=== PATIENT | female | born 1965 | race Caucasian/White ===

== ENCOUNTER → 2018-03-24 22:35 | Emergency (ER) | payer MEDICAID ==
[~2018-03-24 22:35] MED LIST: Ibuprofen TAB* 800 MG PO ONE
--- NOTE | 2018-03-24 23:10 | ED ---
Substance Abuse/Use - HPI Summary HPI Summary: This pt is a 53 y/o female presenting to [facility] via EMS s/p heroin overdose. Pt reports she used IV heroin today. She states she does heroin about once a week. EMS states bystanders administered 16 mg Narcan intranasally. Pt currently notes feeling fatigue and anxious. Denies chest pain, SOB, nausea, vomiting. Per EMS, upon arriving to scene the pt was awake and hunched over trying to keep warm. - History Of Current Complaint Stated Complaint: POSS OVERDOSE Hx Obtained From: Patient, EMS Ingestion History: Type/Name Of Drug - Heroin Overdose Characteristics: IV Timing Of Abuse: Intermittent - once every week Aggravating Factor(s): Nothing Alleviating Factor(s): Medication - Narcan Associated Signs And Symptoms: Other: - fatigue and anxious - Allergies/Home Medications Allergies/Adverse Reactions: Allergies Allergy/AdvReac Type Severity Reaction Status Date / Time No Known Allergies Allergy Verified 03/24/18 22:47 Home Medications: Home Medications NK [No Home Medications Reported] 03/24/18 [History Confirmed 03/24/18] PMH/Surg Hx/FS Hx/Imm Hx Endocrine/Hematology History: Denies: Hx Diabetes Cardiovascular History: Denies: Hx Hypertension Psychiatric History: Reports: Hx Substance Abuse - heroin Infectious Disease History: No Infectious Disease History: Denies: Traveled Outside the [place] in Last 30 Days - Family History Known Family History: Negative: Cardiac Disease, Hypertension - Social History Alcohol Use: None Substance Use Type: Reports: Heroin Substance Use Comment - Amount & Last Used: once a week Smoking Status (MU): Never Smoked Tobacco Review of Systems Positive: Fatigue. Negative: Fever Negative: Chest Pain Negative: Shortness Of Breath Negative: Vomiting, Nausea Musculoskeletal: Negative Skin: Negative Positive: Anxious All Other Systems Reviewed And Are Negative: Yes Physical Exam - Summary Physical Exam Summary: VITAL SIGNS: Reviewed. GENERAL: Patient is a well-developed and nourished female who is lying comfortable in the stretcher. Patient is not in any acute respiratory distress. HEAD AND FACE: No signs of trauma. No ecchymosis, hematomas or skull depressions. No sinus tenderness. EYES: PERRLA, EOMI x 2, No injected conjunctiva, no nystagmus. EARS: Hearing grossly intact. Ear canals and tympanic membranes are within normal limits. MOUTH: Oropharynx within normal limits. NECK: Supple, trachea is midline, no adenopathy, no JVD, no carotid bruit, no c- spine tenderness, neck with full ROM. CHEST: Symmetric, no tenderness at palpation LUNGS: Clear to auscultation bilaterally. No wheezing or crackles. CVS: Regular rate and rhythm, S1 and S2 present, no murmurs or gallops appreciated. ABDOMEN: Soft, non-tender. No signs of distention. No rebound no guarding, and no masses palpated. Bowel sounds are normal. EXTREMITIES: FROM in all major joints, no edema, no cyanosis or clubbing. NEURO: Alert and oriented x 3. No acute neurological deficits. Speech is normal and follows commands. SKIN: Dry and warm Triage Information Reviewed: Yes Vital Signs On Initial Exam: Initial Vitals Temp Pulse Resp BP Pulse Ox 97.9 F 88 16 148/83 95 03/24/18 22:48 03/24/18 22:48 03/24/18 22:48 03/24/18 22:48 03/24/18 22:48 Vital Signs Reviewed: Yes Diagnostics - Vital Signs Vital Signs Temp Pulse Resp BP Pulse Ox 03/24/18 22:48 97.9 F 88 16 148/83 95 - Laboratory Lab Statement: Any lab studies that have been ordered have been reviewed, and results considered in the medical decision making process. Course/Dx - Course Assessment/Plan: Pt is a 53 y/o female who presents to the ED via EMS s/p heroin overdose. Pt reports she used IV heroin today. She states she does heroin about once a week. EMS states bystanders administered 16 mg Narcan intranasally. Pt currently notes feeling fatigue and anxious. Denies chest pain , SOB, nausea, vomiting. Pt was observed in the ED and she has been stable in the ED for over one hour. She will be discharged home with follow up from her PCP and resources for drug abuse. Pt is advised to return to the ED for any worsening or new symptoms. - Diagnoses Provider Diagnoses: Heroin abuse Discharge - Sign-Out/Discharge Documenting (check all that apply): Patient Departure - Discharge - Discharge Plan Condition: Stable Disposition: HOME Patient Education Materials: Narcotic Abuse (ED) Referrals: Allyson Fernandez MD [Primary Care Provider] - Additional Instructions: Please follow up with your primary care provider in 1-2 days. RETURN TO EMERGENCY DEPARTMENT FOR ANY NEW OR WORSENING SYMPTOMS. - Attestation Statements Document Initiated by Scribe: Yes Documenting Scribe: La Nena Weir Provider For Whom Scribe is Documenting (Include Credential): Dr. Jamison Cardenas MD Scribe Attestation: La Nena Hahn, scribed for Dr. Jamison Cardenas MD on 03/25/18 at 0005.
[2018-03-25 02:50] VITALS: BP 122/71
== END | disposition home or self-care (01) ==
LOC: ED 22:35
DX: F11.10 Opioid abuse, uncomplicated (principal)
CPT/HCPCS: 99283; A9270-GY

== ENCOUNTER 2018-05-14 15:51 | Inpatient (IN) | payer OTHER ==
[2018-05-14] MEDS ORDERED: Midazolam* 1 MG/ML 10 ML VIAL (10 MG) ONE (15:52)
[2018-05-14] MEDS ORDERED: Succinylcholine* 20 MG/ML 10 ML VIAL ONE (15:52)
[2018-05-14] MEDS ORDERED: Etomidate* 2 MG/ML 20 ML VIAL (40 MG) ONE (15:52)
--- NOTE | 2018-05-14 16:03 | ED ---
Altered Mental Status - HPI Summary HPI Summary: Level 5 caveat: Unable to obtain complete HPI due to unresponsiveness. The pt is a 53 y/o female [facility] [facility] [place]/o unresponsiveness. She arrives from the [facility]. EMS reports that the pt injected herself with what is thought was Suboxone and took caffeine pills for a MOELLER 3 hours ago. EMS administered 4 baby ASA en route to no relief. Her BP was 120/76 en route. - History Of Current Complaint Stated Complaint: UNRESPONSIVE Hx Obtained From: EMS Onset/Duration: Unknown Aggravating Factor(s): Drug Abuse - Allergies/Home Medications Allergies/Adverse Reactions: Allergies Allergy/AdvReac Type Severity Reaction Status Date / Time No Known Allergies Allergy Verified 03/24/18 22:47 PMH/Surg Hx/FS Hx/Imm Hx Previously Healthy: No - Level 5 caveat: Unable to obtain complete Mhx due to unresponsiveness. Endocrine/Hematology History: Denies: Hx Diabetes Cardiovascular History: Reports: Hx Myocardial Infarction - 2 Denies: Hx Hypertension Psychiatric History: Reports: Hx Substance Abuse - heroin - Family History Known Family History: Negative: Cardiac Disease, Hypertension - Social History Occupation: Unemployed Lives: [facility] - [facility] Alcohol Use: None Substance Use Type: Reports: Heroin, Other - Suboxone Substance Use Comment - Amount & Last Used: once a week Smoking Status (MU): Never Smoked Tobacco Review of Systems - ROS Summary Review of Systems Summary: Level 5 caveat: Unable to obtain complete ROS due to unresponsiveness. Constitutional: Other - Positive: Altered mental status Positive: Headache All Other Systems Reviewed And Are Negative: No Physical Exam - Summary Physical Exam Summary: Level 5 caveat: Unable to obtain complete PE due to unresponsiveness. General: Pt pulseless and not breathing upon arrival; ABC alert called Skin: Pale ;warm Head: normal Eyes: Pupils dilated and fixed bilaterally ENT: normal Neck: supple, nontender Respiratory: CTA, breath sounds present Cardiovascular: RRR Abdomen: soft, nontender Bowel: present Musculoskeletal: normal, strength/ROM intact Neurological: sensory/motor intact, A&O x3 Psychological: affect/mood appropriate Triage Information Reviewed: Yes Vital Signs Reviewed: Yes Procedures - Procedure Summary Procedure Summary: Intraosseous Infussion in the L proximal tibia - Intubation Intubation Method: orotracheal Tube Size (cm): 7.5 Intubation Complications: no complications Post Intubation Xray: Yes - Lungs clear Diagnostics - Laboratory Result Diagrams: 05/14/18 16:05 05/14/18 16:44 Lab Statement: Any lab studies that have been ordered have been reviewed, and results considered in the medical decision making process. - Radiology CXR Radiology Interpretation Completed By: Radiologist - IMPRESSION: STATUS POST INTUBATION, CLEAR LUNGS. The ED physician reviewed this radiology report. - EKG 15:54 Cardiac Rate: Tachycardia - 126 bpm Ectopy: PVCs Summary of EKG Findings: Diffuse ST elevations present Altered Mental Statu Course/Dx - Course Course Of Treatment: The patient arrived pulseless and not breathing; Her pupils were dilated and fixed bilaterally. She appeared pale. An ABC Alert was called and CPR started. The pt was in V tach and got defibrillated once with a return to normal sinus rhythm and pulses. Dr. Waldrop (Hospitalist) and Dr. Allen (Pulmonary Film Processing Utility Worker) were present in the room. I performed an intubation with a 7.5 ET tube and placed an intraosseous infusion tube in the L proximal tibia. For medications given the sequence of events, see the code record. - Diagnoses Provider Diagnoses: Cardiac arrest During the Visit The Following Alert/Code Occurred: ABC Alert - At 15:49 - Provider Notifications Discussed Care Of Patient With: Lyssa Allen Time Discussed With Above Provider: 15:49 Instructed by Provider To: MD Will See In ED - Dr. Allen and Dr. Waldrop saw the pt in the ED - Critical Care Time Critical Care Time: 30-74 min Discharge - Sign-Out/Discharge Documenting (check all that apply): Patient Departure - Admit All imaging exams completed and their final reports reviewed: Yes - Discharge Plan Condition: Critical Disposition: ADMITTED TO [facility] - Billing Disposition and Condition Condition: CRITICAL Disposition: Admitted to [facility] - Attestation Statements Document Initiated by Scribe: Yes Documenting Scribe: Ayah Momin Provider For Whom Lo is Documenting (Include Credential): Dr Gray Trent MD Scribe Attestation: Ayah Hahn scribed for Dr Gray Trent MD on 05/14/18 at 1815. Scribe Documentation Reviewed: Yes Provider Attestation: The documentation as recorded by the Ayah leoi accurately reflects the service I personally performed and the decisions made by me, Dr Gray Trent MD
[2018-05-14] MEDS ORDERED: LORazepam INJ* 2 MG/ML 1 ML VIAL ONE ×2 (16:09→16:15)
[2018-05-14] MEDS ORDERED: Morphine INJ* 4 MG/ML 1 ML SYRINGE (NEW SYRINGE VERSION) ONE (16:12)
[2018-05-14 16:32] LABS: Hematocrit 44 % (35-47); Hemoglobin 14.3 g/dl (12.0-16.0); Mean Corpuscular HGB Conc 33 g/dl (31-36); Mean Corpuscular Hemoglobin 33 pg (27-31); Mean Corpuscular Volume 101 fL (80-97); Red Blood Count 4.32 10^6/ul (4.00-5.40); Red Cell Distribution Width 13 % (10.5-15)
[2018-05-14 16:36] LABS: INR 0.88 (0.77-1.02)
[2018-05-14 16:38] LABS: EGFR Non-African American 55.4 (>60)
--- NOTE | 2018-05-14 16:54 | RAD ---
INDICATION: Altered mental status. COMPARISON: Correlation is made with a prior study from September 24, 2002. TECHNIQUE: A portable view of the chest was obtained. FINDINGS: The patient is status post intubation. The endotracheal tube tip is at the level of the clavicular heads. The heart is within normal limits in size. The lungs are clear. No pleural effusion is seen. IMPRESSION: STATUS POST INTUBATION, CLEAR LUNGS.
[2018-05-14 17:05] LABS: ABS Basophils 0 10^3/ul (0-0.2); ABS Eosinophils 0 10^3/ul (0-0.6); ABS Lymphocytes 1.1 10^3/ul (1.0-4.8); ABS Monocytes 0.1 10^3/ul (0-0.8); ABS Neutrophils 8.9 10^3/ul (1.5-7.7); ABS Nucleated RBC 0 10^3/ul; Eosinophil % 0.3 % (0-6); Lymphocyte % 10.7 % (25-47); Mean Platelet Volume 8.3 um3 (7.4-10.4); Nucleated Red Blood Cells % 0.1; Platelet Count 279 10^3/ul (150-450)
[2018-05-14] MEDS ORDERED: Lidocaine 1% INJ* 10 MG/ML 30 ML SDV ONE ×3 (17:27→17:39)
[2018-05-14] MEDS ORDERED: nitroGLYCERIN DRIP* 25,000 MCG/250 ML BTL ONE ×2 (17:27→17:28)
[2018-05-14] MEDS ORDERED: Heparin 2 UNITS/ML IVPREMIX* 3,000 ML IV ONE (17:27)
[2018-05-14] MEDS ORDERED: VERAPAMIL 2.5 MG/ML 2 ML VIAL ** 5 mg/2 ml ONE (17:28)
[2018-05-14] MEDS ORDERED: Heparin(*) 1000 UNIT/ML 10 ML VIAL CATH LAB IV ONE (17:28)
[2018-05-14] MEDS ORDERED: fentaNYL PCA* 20 ML ONE (17:28)
[2018-05-14] MEDS ORDERED: Propofol* 100 ML ONE (17:30)
[2018-05-14] MEDS ORDERED: Norepinephrine 16MCG/ML IVPRE* 4,000 MCG/250 ML BAG IV ONE (17:45)
[2018-05-14 17:46] LABS: EGFR Non-African American 60.8 (>60)
--- NOTE | 2018-05-14 17:58 | RAD ---
INDICATION: Central line placement confirmation. COMPARISON: Comparison is made with a prior chest x-ray study of the same date from approximately one hour earlier. TECHNIQUE: A portable view of the chest was obtained. FINDINGS: The patient is status post intubation. The endotracheal tube tip is at the level of the clavicular heads. There is also a central line entering from the right jugular approach. The catheter tip projects to the right in the midline approximately at the level of the gavino. There is a nasogastric tube which is partially visualized on this film which demonstrates normal course. The heart is within normal limits in size. The lungs are clear. There is a small right apical pneumothorax measuring approximately 2.8 cm from the lung apex. No pleural effusion is seen. The results of this exam were called to the patient's intensive care nurse La Nena. IMPRESSION: 1. SMALL RIGHT APICAL PNEUMOTHORAX. 2. CATHETERS DESCRIBED.
[2018-05-14] MEDS ORDERED: Aspirin 81 mg CHEW TAB* 81 MG TAB.CHEW PO ONE (18:00)
[2018-05-14] MEDS ORDERED: Heparin VIAL(*) 5000 UNITS/ML VIAL (FIVE THOUSAND) SUBCUT ONE (18:00)
[2018-05-14] MEDS ORDERED: Ticagrelor* 90 MG TAB PO ONE (18:06)
[2018-05-14] MEDS ORDERED: Bivalirudin(*) 250 MG VIAL ONE (18:07)
[2018-05-14] MEDS ORDERED: Nitroglycerin TAB 0.4 MG* 0.4 MG TAB SL PRN (18:56)
[2018-05-14] MEDS ORDERED: NS 0.9% 1000 ML* 400 ML IV SCH (19:00)
[2018-05-14] MEDS ORDERED: Atropine SYRINGE* 0.1 MG/ML 10 ML SYRINGE (1 MG) ONE (19:28)
[2018-05-14] MEDS ORDERED: Magnesium Sulfate 2 GM IV* 2 GM/50 ML BAG IVPB ONE (19:32)
--- NOTE | 2018-05-14 20:18 | PN ---
Progress Note - Progress Note Date of Service: 05/14/18 - Central line procedure note Note: Procedure: Rt IJ Central Line Performed by: Lyssa Allen Indication: Hypotension and vascular access Anesthesia: 2% Lidocaine Procedure: Informed consent was obtained. A time-out was completed, verifying correct patient, procedure, site, positioning. Patients right IJ area was prepped and draped in usual sterile fashion. 2% Lidocaine was used to anesthetize the area. A Triple lumen central line was introduced over a wire via the Seldinger technique, then sutured in place. Good blood flow was noted from all ports. The patient tolerated the procedure well. Chest x-ray was ordered to assess for pneumothorax and catheter placement. CXR showed small apical pneumothorax. A pig tail was placed to drain pneumothorax. Complications: None Blood loss: Minimal
[2018-05-14 20:22] LABS: Urine Appearance Clear; Urine Blood 2+ (Negative); Urine Color Yellow; Urine Ketones Trace (Negative); Urine Protein Negative (Negative); Urine Red Blood Cell 3+(>10/hpf) (Absent); Urine Specific Gravity > 1.060 (1.010-1.030); Urine Urobilinogen Negative (Negative); Urine White Blood Cell Absent (Absent)
[2018-05-14] MEDS ORDERED: Atorvastatin* 80 MG TAB FEED TUBE ONE (20:56)
--- NOTE | 2018-05-14 21:26 | PN ---
Progress Note - Progress Note Date of Service: 05/14/18 - Arterial line placement Note: Procedure: Arterial Line Placement attempt in rt and lt radial Performed by: Lyssa Allen Indication: Hemodynamic monitoring Anesthesia: None Procedure: Informed consent was obtained by daughter. A time-out was completed verifying correct patient, procedure, site, positioning. Allens test was performed to ensure adequate perfusion. Patients right wrist was prepped and draped in the usual sterile fashion. Ultrasound guidance was used to aid needle placement. A 20g Arrow arterial line was attempted into the radial artery. Guide wire could not be advanced after 3 attempts. Similar issue in lt wrist. Blood Loss: Minimal Complications: None
[2018-05-14] MEDS: KCL 20 MEQ/100 ML IVPREMIX* 20 MEQ/100 ML BAG IV SCH (22:00)
[2018-05-14] MEDS ORDERED: Magnesium Sulfate 4 GM IV IVPB ONE (22:00)
--- NOTE | 2018-05-14 23:43 | HP ---
HISTORY AND PHYSICAL: DATE OF ADMISSION: 05/14/18 CHIEF COMPLAINT: Chest pain. HISTORY OF PRESENT ILLNESS: 53-year-old female with history of heroin and suboxone abuse, was in ED 03/2018 with possible heroin overdose. She was monitored and d/krishna when stable. The patient arrived from [facility]. As per EMS report, the patient injected herself with Suboxone, took 2 caffeine pills for headache for 3 hours. She was complaining of chest pain. She was given 4 baby aspirins by EMS en route. Her blood pressure was around 120/76. She was found to be unresponsive in the ED. ABC alert was called. She was pulseless and was agonally breathing. Her pupils were dilated and fixed bilaterally at that time. She appeared pale. CPR was started. The patient was in V-tach and was defibrillated with return of normal sinus rhythm and pulses. The patient was very agitated at that time. She has received 4 mg of Ativan and 5 mg of morphine with continued agitation. There was difficulty obtaining IV access secondary to her agitation. IO was placed by Dr Trent. Decision was made to intubate pt for airway protection due ot continued agitation and need for sedatives. She has received 20 of etomidate, total of 10 of Versed to facilitate intubation. The patient continued to have good pulses at that time. EKG on monitor showed normal sinus rhythm. She was started on propofol drip. Her blood pressure continued to be systolics 130 to 140. She was tachycardic to 110 to 120. EKG obtained at 3:54 showed tachycardia with heart rate of 126 beats per minute with PVCs. The patient brought in to the ICU. She was noted to have ST elevations on monitor. She had EKG repeated, which showed evidence of ST-elevation GA. Dr Harden was called. STEMI code was called. Emergent Rt IJ was placed for vascular access. She has continued periods of aggitation requiring multiple boluses of Propofol. She was also initiated on Fentanyl drip. CXR confirmed line placement and OGT placement and showed small apical PTX. Surgery was consulted. The patient subsequently was taken to cardiac circus laborer and had stent placed for inferior wall GA. She was initiated on Levophed drip, which was titrated at one point to 10 mcg and then was slowly titrated off after cath. Code ICE protocol was initiated given witnessed VFib arrest. She also had a right-sided chest tube placed by Dr. Ortiz after returning from cardiac cath. PAST MEDICAL HISTORY: 1. GA x2, stent placement, further details unknown 2. Hypertension. 3. Polysubstance abuse, active heroin abuse. MEDICATIONS: Not available currently. ALLERGIES: No known drug allergies. FAMILY HISTORY: Hypertension. SOCIAL HISTORY: She is unemployed, lives in a custodial, [facility] in [place]. No alcohol abuse. Active heroin and Suboxone usage. She does drugs once a week. No tobacco abuse. REVIEW OF SYSTEMS: Unable to obtain secondary to unresponsiveness. PHYSICAL EXAMINATION GENERAL: The patient sedated, unresponsive on propofol drip. VITAL SIGNS: Currently temperature 96.9, pulse 135 beats per minute, respiratory rate 18 per minute, O2 sat 99% on 50% FiO2, blood pressure 158/115. HEENT: Pupils fixed. LUNGS: Good air entry bilaterally, rhonchi present. CARDIOVASCULAR: S1, S2 present. No murmurs. ABDOMEN: Bowel sounds present, nontender, nondistended. EXTREMITIES: She was moving all extremities prior to sedation. NEURO: Unable to assess as the patient is currently sedated. DIAGNOSTIC STUDIES/LAB DATA: WBC count 10.0, hemoglobin 14.3, hematocrit 44, MCV 101. Sodium 136, potassium 3, chloride 104, bicarb 20, anion gap 12, BUN 20, creatinine 0.96, magnesium 1.4. AST 143. TSH 1.74. ALT 80, alk phos 89. Troponin 0.01. CRP 1.83. Urine tox screen pending. Chest x-ray post IJ placement suggestive of right apical pneumothorax, IJ and NG /OG in place. No acute airspace opacities noted. EKG: ST elevations in inferior leads. ASSESSMENT AND PLAN: 53-year-old female with polysubstance abuse with ventricular fibrillation arrest secondary to acute inferior wall GA. She was stabilized and emergently taken to circus laborer and had stent placement. She was found to have 95% occlusion in RCA, stent was placed. Also noted to have 80% occlusion in mid LAD which will be medically managed. 1. Acute inferior wall STEMI s/p RCA stent 2. V.fib arrest 3. Drug overdose 4. AMS s/p intubation for airway protection 5. Elevated troponins 6.Hypotension requiring pressors 1. Neuro: The patient was agitated prior to intubation. She is currently sedated on propofol drip. Will continue with propofol to RASS score of -2 to - 3. 2. Cardiovascular: Acute inferior wall myocardial infarction, status post right coronary artery stent. The patient is currently hemodynamically stable. She is off Levophed drip currently. 3. Respiratory: The patient is intubated for airway protection. Vent settings are acceptable. She had a small apical pneumothorax after a right IJ. Given the patient on positive pressure, Heimlich catheter was placed by surgery. 4. GI: N.p.o. for now. OG in place. 5. Renal: Urinary catheter placed for monitoring. Hypokalemia and hypomagnesemia repleted. Anion gap metabolic acidosis likely secondary to hypoperfusion. 6. Hematology: No anemia. Platelet count normal. 7. Psychosocial: Family at bedside and were updated. Consents obtained from family. TIME SPENT: Critical care time 60 minutes doing admission plus additional 60 minutes aggregate with multiple visits excluding procedures. [id number]/[facility] #: [id number] MTDD
[2018-05-15] MEDS ORDERED: Ticagrelor* 90 MG TAB PO ONE
[2018-05-15] MEDS: Chlorhexidine MOUTHWASH 0.12%* 15 ML UDC TOPICAL SCH ×7 (00:05→21:07)
[2018-05-15] MEDS: KCL 20 MEQ/100 ML IVPREMIX* 20 MEQ/100 ML BAG IV SCH ×3 (00:20→21:07)
[2018-05-15] MEDS ORDERED: Fentanyl PCA (Continuous Infusion)* 20 ML PCA SCH (01:00)
[2018-05-15] MEDS ORDERED: Norepinephrine 16MCG/ML IVPRE* 4,000 MCG/250 ML BAG IV SCH (01:00)
[2018-05-15] MEDS: Propofol* 1000 MG (10 MG/ML 100 ml) @ Per Protocol (in ICU Pyxis) IV SCH ×5 (01:43→21:47)
--- NOTE | 2018-05-15 03:24 | PRO ---
PROCEDURE REPORT: DATE OF PROCEDURE: 05/14/18 HISTORY: Ms. Desai is a 53-year-old who was brought in emergently and taken to cardiac catheterizat ion lab for resuscitation and cardiac stenting and she also was intubated and had a right internal ju gular catheter placed. I was called by Dr. Allen because of a right pneumothorax. On my arrival, t he patient was returning back from the catheterization laboratory. I reviewed her chest x-ray, which showed an estimated 15% to 20% right pneumothorax. Since she will be on positive pressure ventilati on, I recommend placement of an Heimlich valve catheter. Although she has had anticoagulation, I thi nk this is probably lower risk than risking pushing her into a tension pneumothorax with a positive p ressure ventilation. I did discuss the situation with the patient's sister. She understands the risks and the procedure a nd I went overall this with her and answered all of her questions and [facility] DESCRIPTION OF PROCEDURE: Therefore, with the patient supine in the ICU bed, the right upper anterio r chest was prepped with antiseptic, draped in a sterile fashion. Sterile mask, gown, gloves were ut ilized and the second interspace was anesthetized with local anesthetic; and coming up over the rib, the Skinny needle was used to aspirate air confirming the location and then the Heimlich valve cathet er was placed without difficulty. This was sutured at the skin using a silk suture and a sterile gau ze dressing was placed. Heimlich valve was hooked up. She tolerated this well and followup chest x- ray will be obtained. [id number]/[facility] #: [id number]
[2018-05-15 05:22] LABS: ABS Basophils 0 10^3/ul (0-0.2); ABS Eosinophils 0.1 10^3/ul (0-0.6); ABS Lymphocytes 1.7 10^3/ul (1.0-4.8); ABS Monocytes 0.3 10^3/ul (0-0.8); ABS Neutrophils 6.9 10^3/ul (1.5-7.7); ABS Nucleated RBC 0 10^3/ul; Eosinophil % 1.4 % (0-6); Hematocrit 33 % (35-47); Hemoglobin 11.4 g/dl (12.0-16.0); Lymphocyte % 18.5 % (25-47); Mean Corpuscular HGB Conc 34 g/dl (31-36); Mean Corpuscular Hemoglobin 34 pg (27-31); Mean Corpuscular Volume 98 fL (80-97); Mean Platelet Volume 7.9 um3 (7.4-10.4); Nucleated Red Blood Cells % 0; Platelet Count 181 10^3/ul (150-450); Red Blood Count 3.39 10^6/ul (4.00-5.40); Red Cell Distribution Width 13 % (10.5-15); White Blood Count 9.1 10^3/ul (3.5-10.8)
[2018-05-15 05:40] LABS: EGFR Non-African American 95.3 (>60)
--- NOTE | 2018-05-15 06:59 | PN ---
Progress Note - Progress Note Date of Service: 05/15/18 Note: S/P placement Heimlich valve, right Sedated on vent No air leak via tube this AM CXR post procedure--lung re-expanded Cont chest catheter to Heimlich valve until off pos pressure ventilation
--- NOTE | 2018-05-15 07:22 | RAD ---
INDICATION: Right-sided pneumothorax. COMPARISON: Comparison is made with a prior chest x-ray study from approximately 3 hours earlier. TECHNIQUE: A portable view of the chest was obtained. FINDINGS: The patient is status post intubation. There is an endotracheal tube. The catheter tip is at the level of the clavicular heads. There is a nasogastric tube which demonstrates normal course. The distal portion projects in the left upper quadrant. There is a central venous catheter on the right side. There is a Heimlich-type chest tube. The catheter tip projects near the right lung apex. There is a small right apical pneumothorax measuring approximately 1 cm from the lung apex which has decreased in size. The lungs are clear. No pleural effusion is seen. IMPRESSION: STATUS POST RIGHT CHEST TUBE PLACEMENT. THERE IS A SMALL RIGHT APICAL PNEUMOTHORAX WHICH HAS DECREASED IN SIZE FROM THE PRIOR STUDY. R1F
--- NOTE | 2018-05-15 08:32 | RAD ---
INDICATION: Lines and tubes. COMPARISON: Comparison is made with a prior study from May 14, 2018. TECHNIQUE: A portable view of the chest was obtained. The exam is slightly limited. FINDINGS: Note is again made of endotracheal, nasogastric and central venous catheters. The heart is within normal limits in size. There is a Heimlich-type chest tube present. The catheter tip is at the right lung apex. There is a small right apical pneumothorax which appears unchanged. The lungs are clear. No pleural effusion is seen. IMPRESSION: SMALL RIGHT APICAL PNEUMOTHORAX, UNCHANGED.
[2018-05-15] MEDS: Ticagrelor* 90 MG TAB PO SCH ×2 (08:34→21:07)
[2018-05-15] MEDS: Pantoprazole IV* 40 MG IV SCH (08:34)
[2018-05-15] MEDS: Aspirin 81 mg CHEW TAB* 81 MG TAB.CHEW PO SCH (08:34)
--- NOTE | 2018-05-15 10:31 | PN ---
Date of Service: 05/15/18 - [facility] note Critical Care Services: Pt seen and examined at bedside. Overnight events: Remained off Levophed. Had short runs of V.tach. Had idioventricular rhythm. Troponins continued to peak. Sedated on propofol, becomes agitated when propofol drip is lowered. UO is adequate o/n, started to drop this am. IVF were stopped. Heimlich valve in place. Target body temp at 36 Vitals, labs, imaging studies were reviewed Vital Signs: Temp Pulse Resp BP SpO2 FiO2 96.6 F 73 14 103/68 100 30 05/15/18 10:01 05/15/18 10:01 05/15/18 10:00 05/15/18 10:00 05/15/18 10:01 05/15 08:00 Physical Exam: Gen: Pt in NAD, sedated HEENT: PERRLA, no JVD, ETT, OGT in place Lungs: Decreased air entry at bases, no wheeze, no crackles Cardiac: S1, S2+, regular Abdomen: Soft, BS+ Extremities: withdraws to painful stimuli Neuro: Sedated, unable to perform complete neuro exam Skin: Multiple needle track ahn Fluid Balance (Past 24 Hours): I= 0 O= 123 Net -123 Intake & Output 05/13/18 05/14/18 05/15/18 05/16/18 06:59 06:59 06:59 06:59 Intake Total 7436 0 Output Total 1200 123 Balance 6236 -123 Weight 131 lb 2.801 oz Intake: IV Fluids 6697 NS (0.9%) 6697 IVPB 318 Magnesium 100 Potassium Chloride 218 Medicated IV 421 CC - Norepinephrine/ 145 Levophed CC - Propofol/Diprivan 276 Oral 0 0 Output: NG Tube Drainage Amount 800 Rodriguez 400 123 Labs: Laboratory Results - last 24 hr 05/14/18 05/14/18 05/14/18 16:05 16:05 16:05 WBC 10.0 RBC 4.32 Hgb 14.3 Hct 44 MCV 101 H MCH 33 H MCHC 33 RDW 13 Plt Count 279 MPV 8.3 Neut % (Auto) 88.2 H Lymph % (Auto) 10.7 L Loup % (Auto) 0.5 Eos % (Auto) 0.3 Baso % (Auto) 0.3 Absolute Neuts (auto) 8.9 H Absolute Lymphs (auto) 1.1 Absolute Monos (auto) 0.1 Absolute Eos (auto) 0 Absolute Basos (auto) 0 Absolute Nucleated RBC 0 Nucleated RBC % 0.1 INR (Anticoag Therapy) 0.88 APTT 30.0 D-Dimer, Quantitative 352 H Carbon Monoxide Screen Sodium 133 L Potassium TNP Chloride 103 Carbon Dioxide 17 L Anion Gap 13 H BUN 20 Creatinine 1.04 H Est GFR ( Amer) 67.1 Est GFR (Non-Af Amer) 55.4 BUN/Creatinine Ratio 19.2 Glucose 157 H Lactic Acid Calcium 9.0 Magnesium TNP Total Bilirubin 0.50 AST TNP ALT 80 H Alkaline Phosphatase 89 Ammonia Total Creatine Kinase 78 CK-MB (CK-2) 2.7 Troponin I 0.01 C-Reactive Protein 1.83 B-Natriuretic Peptide Total Protein 8.0 Albumin 3.7 Globulin 4.3 H Albumin/Globulin Ratio 0.9 L Triglycerides Cholesterol LDL Cholesterol HDL Cholesterol Lipase 47 TSH Urine Color Urine Appearance Urine pH Ur Specific [place] Urine Protein Urine Ketones Urine Blood Urine Nitrate Urine Bilirubin Urine Urobilinogen Ur Leukocyte Esterase Urine WBC (Auto) Urine RBC (Auto) Urine Bacteria Urine Glucose Salicylates Urine Opiates Screen Acetaminophen Ur Barbiturates Screen Ur Phencyclidine Scrn Ur Amphetamines Screen U Benzodiazepines Scrn Urine Cocaine Screen U Cannabinoids Screen Serum Alcohol 05/14/18 05/14/18 05/14/18 16:34 16:44 18:15 WBC RBC Hgb Hct MCV MCH MCHC RDW Plt Count MPV Neut % (Auto) Lymph % (Auto) Loup % (Auto) Eos % (Auto) Baso % (Auto) Absolute Neuts (auto) Absolute Lymphs (auto) Absolute Monos (auto) Absolute Eos (auto) Absolute Basos (auto) Absolute Nucleated RBC Nucleated RBC % INR (Anticoag Therapy) APTT D-Dimer, Quantitative Carbon Monoxide Screen Sodium 136 Potassium TNP 3.0 L Chloride 104 Carbon Dioxide 20 L Anion Gap 12 H BUN 20 Creatinine 0.96 H Est GFR ( Amer) 73.6 Est GFR (Non-Af Amer) 60.8 BUN/Creatinine Ratio 20.8 H Glucose 119 H Lactic Acid Calcium 8.7 Magnesium 1.4 L Total Bilirubin AST 143 H ALT Alkaline Phosphatase Ammonia Total Creatine Kinase CK-MB (CK-2) Troponin I C-Reactive Protein B-Natriuretic Peptide Total Protein Albumin Globulin Albumin/Globulin Ratio Triglycerides Cholesterol LDL Cholesterol HDL Cholesterol Lipase TSH 1.74 Urine Color Urine Appearance Urine pH Ur Specific [place] Urine Protein Urine Ketones Urine Blood Urine Nitrate Urine Bilirubin Urine Urobilinogen Ur Leukocyte Esterase Urine WBC (Auto) Urine RBC (Auto) Urine Bacteria Urine Glucose Salicylates < 2.50 Urine Opiates Screen Acetaminophen < 15 Ur Barbiturates Screen Ur Phencyclidine Scrn Ur Amphetamines Screen U Benzodiazepines Scrn Urine Cocaine Screen U Cannabinoids Screen Serum Alcohol < 10 05/14/18 05/14/18 05/14/18 19:54 19:54 23:30 WBC RBC Hgb Hct MCV MCH MCHC RDW Plt Count MPV Neut % (Auto) Lymph % (Auto) Loup % (Auto) Eos % (Auto) Baso % (Auto) Absolute Neuts (auto) Absolute Lymphs (auto) Absolute Monos (auto) Absolute Eos (auto) Absolute Basos (auto) Absolute Nucleated RBC Nucleated RBC % INR (Anticoag Therapy) APTT D-Dimer, Quantitative Carbon Monoxide Screen Sodium Potassium Chloride Carbon Dioxide Anion Gap BUN Creatinine Est GFR ( Amer) Est GFR (Non-Af Amer) BUN/Creatinine Ratio Glucose Lactic Acid Calcium Magnesium Total Bilirubin AST ALT Alkaline Phosphatase Ammonia 47 Total Creatine Kinase CK-MB (CK-2) Troponin I C-Reactive Protein B-Natriuretic Peptide 131 H Total Protein Albumin Globulin Albumin/Globulin Ratio Triglycerides Cholesterol LDL Cholesterol HDL Cholesterol Lipase TSH Urine Color Yellow Urine Appearance Clear Urine pH 5.0 Ur Specific [place] > 1.060 H Urine Protein Negative Urine Ketones Trace A Urine Blood 2+ A Urine Nitrate Negative Urine Bilirubin Negative Urine Urobilinogen Negative Ur Leukocyte Esterase Negative Urine WBC (Auto) Absent Urine RBC (Auto) 3+(>10/hpf) A Urine Bacteria Absent Urine Glucose Negative Salicylates Urine Opiates Screen Presumptive positive A Acetaminophen Ur Barbiturates Screen None detected Ur Phencyclidine Scrn None detected Ur Amphetamines Screen Presumptive positive A U Benzodiazepines Scrn Presumptive positive A Urine Cocaine Screen Presumptive positive A U Cannabinoids Screen None detected Serum Alcohol 05/14/18 05/14/18 05/14/18 23:30 23:30 23:30 WBC RBC Hgb Hct MCV MCH MCHC RDW Plt Count MPV Neut % (Auto) Lymph % (Auto) Loup % (Auto) Eos % (Auto) Baso % (Auto) Absolute Neuts (auto) Absolute Lymphs (auto) Absolute Monos (auto) Absolute Eos (auto) Absolute Basos (auto) Absolute Nucleated RBC Nucleated RBC % INR (Anticoag Therapy) APTT D-Dimer, Quantitative Carbon Monoxide Screen 4.0 Sodium Potassium Chloride Carbon Dioxide Anion Gap BUN Creatinine Est GFR ( Amer) Est GFR (Non-Af Amer) BUN/Creatinine Ratio Glucose Lactic Acid 1.1 Calcium Magnesium Total Bilirubin AST ALT Alkaline Phosphatase Ammonia Total Creatine Kinase 1483 H CK-MB (CK-2) 272.1 H Troponin I 16.79 H* C-Reactive Protein B-Natriuretic Peptide Total Protein Albumin Globulin Albumin/Globulin Ratio Triglycerides Cholesterol LDL Cholesterol HDL Cholesterol Lipase TSH Urine Color Urine Appearance Urine pH Ur Specific [place] Urine Protein Urine Ketones Urine Blood Urine Nitrate Urine Bilirubin Urine Urobilinogen Ur Leukocyte Esterase Urine WBC (Auto) Urine RBC (Auto) Urine Bacteria Urine Glucose Salicylates Urine Opiates Screen Acetaminophen Ur Barbiturates Screen Ur Phencyclidine Scrn Ur Amphetamines Screen U Benzodiazepines Scrn Urine Cocaine Screen U Cannabinoids Screen Serum Alcohol 05/15/18 05/15/18 05:00 05:00 WBC 9.1 RBC 3.39 L Hgb 11.4 L Hct 33 L MCV 98 H MCH 34 H MCHC 34 RDW 13 Plt Count 181 MPV 7.9 Neut % (Auto) 76.2 Lymph % (Auto) 18.5 L Loup % (Auto) 3.4 Eos % (Auto) 1.4 Baso % (Auto) 0.5 Absolute Neuts (auto) 6.9 Absolute Lymphs (auto) 1.7 Absolute Monos (auto) 0.3 Absolute Eos (auto) 0.1 Absolute Basos (auto) 0 Absolute Nucleated RBC 0 Nucleated RBC % 0 INR (Anticoag Therapy) APTT D-Dimer, Quantitative Carbon Monoxide Screen Sodium 134 L Potassium 4.1 Chloride 106 Carbon Dioxide 26 Anion Gap 2 BUN 18 Creatinine 0.65 Est GFR ( Amer) 115.4 Est GFR (Non-Af Amer) 95.3 BUN/Creatinine Ratio 27.7 H Glucose 102 H Lactic Acid Calcium 8.0 L Magnesium 2.7 Total Bilirubin 0.40 AST 207 H ALT 104 H Alkaline Phosphatase 62 Ammonia Total Creatine Kinase 1659 H CK-MB (CK-2) > 298.0 H Troponin I 23.43 H* C-Reactive Protein B-Natriuretic Peptide Total Protein 6.0 L Albumin 2.9 L Globulin 3.1 Albumin/Globulin Ratio 0.9 L Triglycerides 131 Cholesterol 127 LDL Cholesterol 49 HDL Cholesterol 51.4 Lipase TSH Urine Color Urine Appearance Urine pH Ur Specific [place] Urine Protein Urine Ketones Urine Blood Urine Nitrate Urine Bilirubin Urine Urobilinogen Ur Leukocyte Esterase Urine WBC (Auto) Urine RBC (Auto) Urine Bacteria Urine Glucose Salicylates Urine Opiates Screen Acetaminophen Ur Barbiturates Screen Ur Phencyclidine Scrn Ur Amphetamines Screen U Benzodiazepines Scrn Urine Cocaine Screen U Cannabinoids Screen Serum Alcohol Studies: CXR 05/15/18 was personally reviewed- Rt apical pneumothorax, Rt chest tube in place, OGT, ETT, Rt IJ in place Nutrition: NPO Impression: 1. Acute STEMI 2. V.fib arrest, code ice protocol 2. Cocaine abuse 3. H/o heroin abuse 4. s/p cardiac cath 5. 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 S/p intubation for airway protection 7. Hypotension sec to Propofol and inferior wall TN, required Levophed, currently off pressors 8. Electrolyte abnormalities being repleted 9. Elevated troponins 10. Hypoalbuminemia 11. Elevated liver enzymes- hypotension 12. Macrocytic anemia Plan: 1. Neuro: Will continue with Propofol drip to RASS score -2 to-3. Patient was communicative prior to v.fib arrest. Donot suspect neurological issues. Pupils are reactive. Gets agitated when sedation is lowered. Keep head of bed elevated at 30 degrees. 2. CVS: Acute inf wall TN s/p V.Fib arrest. STEMI was called. Pt had cardiac cath with stent in RCA. Brief episodes of V.tach, no bradycardia, in normal sinus rhythm. Off Levophed. F/u troponins. Code ice protocol started for v.fib arrest. Will start rewarming at 9 pm tonight. 3. Resp: Intubated for airway protection. Peak pressures and plateau pressures are normal. On 30% FiO2, sats around 100%. Had iatrogenic pneumothorax after Rt IJ placement, s/p chest tube placement, with air leak. Will need until off positive pressure. CXR from this morning was reviewed. Vent bundle ordered. 4. GI: NPO for now.PPI px ordered 5. Renal: UO slowed down slightly this am. Will restart IVF at 100cc/hr. Electrolyte abnormalities have been corrected 6.ID: No concern for infection. No need for abx 7. Haem: Macrocytic anemia,will check folate and iron. No active bleeding. 8. Musculoskeletal: Frequent turning and positioning to prevent pressure ulcers 9. Psychosocial: Pt with h/o prior CAD, TN and stent placement. Pt needs to be compliant with medications to prevent stent thrombosis upon discharge. She is currently in drug rehab center. Pts daughter and sister were at bedside yesterday with multiple other family members. They were updated on patients condition. Daughter to arrive this afternoon. Will update when at bedside. Will need to have social security specialist on case before discharge for d/c planning and to assure medication compliance Rodriguez catheter for hemodynamic monitoring and to prevent pressure ulcers given bedridden status IV access: Rt IJ. A-line attempt was unsuccessful, not indicated anymore. Groin site looks good Critical Care Time: 55 min
--- NOTE | 2018-05-15 11:15 | CONS ---
CC: Dr. Allyson Fernandez; Dr. Allen CARDIOLOGY CONSULT: DATE OF CONSULT: 05/14/18 INDICATION FOR CONSULT: The patient presents to the hospital with out of hospital cardiac arrest, no w with EKG demonstration of large inferoposterior wall myocardial infarction. HISTORY OF PRESENT ILLNESS: The patient is a 53-year-old female, whose history is obtained totally b y the medical records and by speaking with Dr. Allen and also some family members. The patient heather carney has a history of multiple stents placed in the past due to her coronary arteries. It should b e noted we have no available information at this time. Initially, the family felt she had some of st ents performed here looking at her records, that did not occur, they were all performed in some [facility]. The patient apparently, according to the patient's daughter, was not feeling well during the course o f the day and apparently was living at the [facility] in [place]. Apparently, s he had told them she had injected herself with Suboxone, took 2 caffeine pills for headache. She heather carney was complaining about chest discomfort. She was given 4 baby aspirins in route. Her blood pr essure initially was 120/76. When she presented to the ER, she was found to be unresponsive and an A BC alert was called. She was pulseless with agonal breathing. She appeared pale. CPR was started. She was noted to have V-tach and was defibrillated to normal sinus rhythm and developed pulses. At that point time, she was agitated, but was uncertain whether or not she was purposeful according to Arlene Allen. She was given medication for agitation and was intubated. EKG reportedly at 3:54 showed tachycardia with a heart rate of 126 with PVCs. I do not have that EKG immediately available. The p juan antonio was brought in to the ICU and a repeat EKG was performed that revealed ST segment elevation an d reciprocal changes suggesting an acute inferoposterior wall myocardial infarction. I was then call ed by Dr. Allen. I reviewed the EKG and asked her to immediately call a STEMI alert, which she did. In the meantime, she worked on placing an IJ line in. On arrival, the patient was intubated, sedat ed. Vital signs revealed a blood pressure in the 120 range with a tachycardia as much as 130. Levop hed was placed on her for hypotension prior to my arrival. After reviewing with the family the risks and benefits and they understood it, the decision was made to proceed with emergent cardiac catheter ization in an attempt to open what is presumed to be a totally occluded right coronary artery or left dominant circumflex. As mentioned earlier, we have no reports of prior cardiac catheterizations. PAST MEDICAL HISTORY: Includes apparently myocardial infarction x2 in the past, history of hypertens ion. MEDICATIONS: At home, currently not available. According to the family, they do not believe the pat ient was taking any medications at this time. ALLERGIES: There were no known drug allergies. FAMILY HISTORY: Included hypertension. SOCIAL HISTORY: She is unemployed, lives in a [place] [facility], [facility] in [place], reported prior history of drug usage. She does not smoke and apparently does not use alcohol per Dr. Allen' s evaluation. REVIEW OF SYSTEMS: Unobtainable. PHYSICAL EXAM: When I see, reveals an intubated patient, fully sedated. Vital signs revealed blood pressure 120/70 with a pulse of 130. Neck was supple. It is impossible to accurately hear for any b ruits because of ventilation. Heart revealed distant heart sounds, tachycardic rate. I cannot appre ciate significant systolic or diastolic murmur. Breath sounds are mildly coarse in nature both sides in the lower lungs. I cannot appreciate definitive rales. Extremities are without clubbing, cyanos is, or pascual pitting edema. Femoral pulses present bilaterally. There is a scar located in the groin area. Distal pulses are intact. Neuro: The is patient fully sedated. DIAGNOSTIC STUDIES/LAB DATA: Laboratory results available at the time of the cardiac catheterization revealed hemoglobin and hematocrit 14.3 and 44 with a platelet count of 279,000. A sodium 133, pota ssium is still pending, chloride 103, bicarb 17, BUN and creatinine of 20 and 1.0. SGOT 80, total CP K 78, MB 27, troponin 0.01. Total protein 8.0, albumin 3.7, TSH 1.74. Electrocardiogram available to me at the time dated 05/14/18 time 1649 revealed sinus tachycardia, he art rate 129, normal GA, QRS, and QT interval. There was severe ST segment elevation in II, III, aVF with severe segment depression in V1 through 4 and I and aVL suggesting acute inferoposterior wall m yocardial infarction. OVERALL ASSESSMENT: Maira presents now with cardiac arrest with ventricular tachycardia, successfull y resuscitated, although her mental status is unclear at this time. At this point in time, we will p roceed to emergent cardiac catheterization with an attempt toward revascularization. The patient is now being given 4000 units of heparin. She apparently received aspirin in route to the emergency jacek m. We will give Brilinta down the NG tube in the cardiovascular laboratory. Formal management will be made pending results of the cardiac catheterization. [id number]/[facility] #: [id number]
--- NOTE | 2018-05-15 11:40 | CATH ---
CC: Dr. Allyson Fernandez CARDIAC CATHETERIZATION AND INTERVENTIONAL REPORT: DATE OF PROCEDURE: 05/14/18 INDICATION FOR THE PROCEDURE: The patient with EKG suggesting acute ST segment elevation, inferoposterior myocardial infarction. PROCEDURE: Coronary arteriography, left heart catheterization, left ventriculography, balloon angioplasty, and placement of a 2.75 x 16 mm long Synergy drug-eluting stent post dilated to 2.75, 2.8 mm. The patient was examined in the intensive care unit. The risks and benefits were explained to the family members who understood and wished to proceed. APPROACH: Right femoral artery. PRECARDIAC CATHETERIZATION LABORATORY RESULTS: Hemoglobin and hematocrit of 14.3 and 44 with a platelet count of 279,000. BUN and creatinine of 20 and 1. Sodium 133, potassium not available, chloride 103, bicarb 17. EQUIPMENT UTILIZED: 1. Right femoral artery sheath 6.5-[place] Merit Prelude sheath. 2. Diagnostic coronary catheters FL4 curved left coronary catheter and a 6- [place] ART4 curved guide catheter. 3. Guide catheter for interventional procedure: The 6-[place] ART 4 curve right coronary guide catheter. 4. The diagnostic guidewire was a regular length 0.013 guidewire. 5. Interventional guidewire was a All Star 190 length guidewire. 6. Initial balloon dilation 2.5 x 12 mm, 2.75 x 15 mm NC Emerge. 7. Stent utilized was 2.75 x 20 mm. 8. Post stent deployment balloon utilized was 2.75 x 15 mm at high pressure. 9. Left heart catheterization - catheter was a 5.5 angle pigtail catheter. 10. Cooling catheter at the request of Dr. Allen for hypothermic protocol. MEDICATIONS GIVEN: 1. The patient was already on propofol and Levophed drip, 1 mg of atropine was given for initial bradycardia. 2. 180 mg of Brilinta via the NG tube. 3. Angiomax bolus and Angiomax drip was started after the patient had an ACT found to be subtherapeutic. DESCRIPTION OF PROCEDURE: The patient was brought to the cardiovascular laboratory where a formal time-out was performed. The patient was prepped and draped in a sterile fashion. The right groin area was anesthetized with 1% lidocaine. The right femoral artery was cannulated and a 6.5-South African sheath was placed. Coronary arteriography was performed followed by intervention utilizing the ART4 6-[place] African guide catheter. Prior to intervention, ACT was checked, found to be therapeutic, and the patient received a bolus of Angiomax and Angiomax drip started and Brilinta was given down the NG tube. After the stent placement and the artery assessed, left heart catheterization was performed using the 5-[place] pigtail catheter advanced to the ascending aorta. Central aortic pressure was caught and the catheter was then passed across the aortic valve into the left ventricle where the left ventricular pressure was recorded. Left ventriculography was performed utilizing a total of 24 cc of Omnipaque dye at a rate of 12 cc per second and the catheter was then pulled back across the aortic valve to recheck gradient. At the end of the case, the catheter was sutured in place. Of note, Dr. Allen had asked that we placed a cooling catheter in the right femoral vein. The right femoral vein was cannulated at the beginning of the case and this sheath was exchanged for the cooling catheter, which was then sutured in place to be utilized by Dr. Allen for cooling. RESULTS: HEMODYNAMIC DATA: Left heart catheterization - revealed central aortic pressure of 119/70 with a mean of 92. Left ventricular pressure 170 over left ventricular end diastolic pressure of 16. LEFT VENTRICULOGRAPHY: performed in the FARIA projection revealed moderate-to- severe inferior wall hypokinesis with preservation of the anterior and apical region. Moderately reduced ejection fraction of approximately 35% to 40%. CORONARY ARTERIOGRAPHY: A. Left coronary artery: 1. Left main - long in nature with a minimal 10% distal lesion noted. 2. Left anterior descending artery - of note, there is a presence of a stent placed within the proximal portion of the left anterior descending artery with moderate in-stent restenosis noted. Of note, just past the end of the stent is bifurcation of the artery into continuation of the LAD and a diagonal branch. There is a complex narrowing seen including the bifurcation with a degree of luminal reduction noted to be approximately 70% to 75% to the diagonal branch and 75% to the LAD. Calcium is seen around that area as well. There is no other significant lesion seen past that point. The LAD supplies to the apical region and the diagonal to the anterolateral apical region. 3. Circumflex artery - a nondominant vessel supplying a high first obtuse marginal branch followed by 4 more obtuse marginal branches. The second one had a proximal narrowing of 65% to 70%. Continuation of the circumflex had mild 30% narrowing in its distal portion prior to the last 2 obtuse marginal branch. B. Right coronary artery - a dominant vessel supplying multiple acute marginal branches including the PDA and 1 posterior left ventricular branch. There was a critical 95% proximal lesion noted with some calcium and thrombus present. The rest of the vessel showed a prior stent just past it which had mild in-stent restenosis of approximately 20% to 25%. INTERVENTIONA INTO PROXIMAL TO MID RIGHT COROANRY ARTERY: Successful reduction of critical 95% lesion in the mid right coronary artery with balloon angioplasty and placement of 2.75 x 20 mm long Synergy drug- eluting stent post dilated to 2.75, 2.8 with PARVIZ 3 flow, no dissection seen and a 10% to 15% residual stenosis seen in the RELL projection and 0% stenosis seen in the FARIA projection. 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 At this point in time, aggressive medical management will be pursued with dual-antiplatelet therapy, high- dose statin therapy. Further medical management will be determined after results of further blood tests are performed. Hypothermic protocol per Dr. Allen and further management will be made during the course of this hospitalization following the patient's status along clinically. [id number]/[facility] #: [id number] [facility]
[2018-05-15] MEDS: NS 0.9% 1000 ML* 1,000 ML IV SCH ×2 (12:23→22:26)
--- NOTE | 2018-05-15 15:26 | ECHO ---
Patient: MIKE SELF [facility] Rec#: [id number] : 1965 Date: 05/15/2018 Age: 53y Height: 168 cm / 66.1 in Weight: 60 kg / 132.2 lbs Sex: F BSA: 1.68 Room#: ICU 1 Admit Date#: 05/14/2018 Type: Inpatient Referring: Yrn Thorpe MD Reading: Scott Michael MD Logistics Operations Manager: Princess Fernández RN RDCS Transthoracic Echocardiogram Indication: [place], S/P PCI BP: 105/70 HR: 74 Rhythm: NSR Findings History: CAD with MIs, HN, polysubstance abuse, active heroin abuse Technical Comments: The study is technically limited due to patient being intubated and on a ventilator. Left Ventricle: The left ventricular chamber size is decreased. There is no left ventricular hypertrophy. There is a focal wall motion abnormality present. There is mild to moderately decreased left ventricular systolic function. The estimated ejection fraction is 40-45%. Abnormal left ventricular diastolic filling is observed, consistent with impaired relaxation. Left Atrium: The left atrial chamber size is normal. Right Ventricle: The right ventricular cavity size is normal. The right ventricular global systolic function is normal. Right Atrium: The right atrial cavity size is normal. Aortic Valve: The aortic valve structure is not well visualized. The aortic valve is trileaflet. The aortic valve leaflets are mildly thickened. There is no evidence of aortic regurgitation. There is no evidence of aortic stenosis. Mitral Valve: The mitral valve leaflets are mildly thickened. There is mild mitral regurgitation. There is no evidence of mitral stenosis. Tricuspid Valve: The tricuspid valve leaflets are normal. There is trace to mild tricuspid regurgitation. Unable to estimate the right ventricular systolic pressure. There is no tricuspid stenosis. Pulmonic Valve: The pulmonic valve structure is not well visualized. Pericardium: There is no significant pericardial effusion. Aorta: The aorta is not well visualized. The ascending aorta is not well visualized. There is no dilatation of the aortic arch. There is no dilation of the aortic root. Pulmonary Artery: The main pulmonary artery is not well visualized. Venous: Unable to accurately comment on the size collapsibility of the IVC as the patient in known to be on mechanical ventilation. Summary: There was not any prior study for comparison. Conclusions The left ventricular chamber size is decreased. There is a focal wall motion abnormality present. There is mild to moderately decreased left ventricular systolic function. The estimated ejection fraction is 40-45%. WMA mid to distal inferior wall seen best in A2C view. Abnormal left ventricular diastolic filling is observed, consistent with impaired relaxation. There is mild mitral regurgitation. There is trace to mild tricuspid regurgitation. Measurements Name Value Normal Range RVIDd (AP) 2D 2.7 cm (0.9 - 2.6) RVDdMajor (2D) 3 cm (2.2 - 4.4) RAd ISD 4CH 3.6 cm (3.4 - 4.9) RA (A4C)W 2.8 cm (2.9 - 4.6) IVSd (2D) 1 cm (0.6 - 1) LVPWd (2D) 0.9 cm (0.6 - 1) LVIDd (2D) 3.5 cm (3.6 - 5.4) LVIDs (2D) 3.2 cm - LV FS (2D) 9 % (25 - 45) Aortic Annulus 1.8 cm (1.4 - 2.6) Ao root diameter (2D) 2.8 cm (2.1 - 3.5) LA dimension (AP) 2D 3 cm (2.3 - 3.8) LAd ISD 4CH 4.4 cm (2.9 - 5.3) LA ISD 4CH W 3.7 cm (2.5 - 4.5) Name Value Normal Range LA ESV BP (A/L) index 20.1 ml/m2 - Name Value Normal Range MV E-wave Vmax 0.66 m/sec - MV deceleration time 232 msec - MV A-wave Vmax 0.88 m/sec - MV E:A ratio 0.7 ratio - LV septal e' Vmax 0.06 m/sec - LV lateral e' Vmax 0.08 m/sec - LV E:e' septal ratio 11 ratio - LV E:e' lateral ratio 8.3 ratio - Name Value Normal Range AV Vmax 1.2 m/sec - AV VTI 26.3 cm - AV peak gradient 5 mmHg - AV mean gradient 3 mmHg - LVOT Vmax 0.76 m/sec - LVOT VTI 14.3 cm - LVOT peak gradient 2 mmHg - LVOT mean gradient 1 mmHg - Name Value Normal Range IVC diameter 2.1 cm -
[2018-05-15] MEDS: Atorvastatin* 80 MG TAB PO SCH (17:05)
[2018-05-15 17:23] LABS: EGFR Non-African American 118.1 (>60)
[2018-05-15] MEDS ORDERED: Levofloxacin 500 MG IVPREMIX(* 500 MG/100 ML BAG IVPB SCH (23:00)
[2018-05-16] MEDS: Chlorhexidine MOUTHWASH 0.12%* 15 ML UDC TOPICAL SCH ×4 (01:14→13:46)
[2018-05-16] MEDS: Propofol* 1000 MG (10 MG/ML 100 ml) @ Per Protocol (in ICU Pyxis) IV SCH ×3 (01:15→09:00)
[2018-05-16 05:54] LABS: ABS Basophils 0 10^3/ul (0-0.2); ABS Eosinophils 0.2 10^3/ul (0-0.6); ABS Monocytes 0.5 10^3/ul (0-0.8); ABS Neutrophils 6.2 10^3/ul (1.5-7.7); ABS Nucleated RBC 0 10^3/ul; Eosinophil % 2.6 % (0-6); Hematocrit 33 % (35-47); Hemoglobin 10.8 g/dl (12.0-16.0); Lymphocyte % 12.7 % (25-47); Mean Corpuscular HGB Conc 33 g/dl (31-36); Mean Corpuscular Hemoglobin 33 pg (27-31); Mean Corpuscular Volume 99 fL (80-97); Mean Platelet Volume 8.2 um3 (7.4-10.4); Nucleated Red Blood Cells % 0; Platelet Count 151 10^3/ul (150-450); Red Blood Count 3.29 10^6/ul (4.00-5.40); Red Cell Distribution Width 14 % (10.5-15); White Blood Count 7.9 10^3/ul (3.5-10.8)
[2018-05-16 06:15] LABS: EGFR Non-African American 142.1 (>60)
[2018-05-16] MEDS ORDERED: Magnesium Sulfate 2 GM IV* 2 GM/50 ML BAG IVPB ONE (07:25)
[2018-05-16] MEDS: NS 0.9% 1000 ML* 1,000 ML IV SCH (08:10)
[2018-05-16] MEDS: Ticagrelor* 90 MG TAB PO SCH ×2 (08:37→22:11)
[2018-05-16] MEDS: Pantoprazole IV* 40 MG IV SCH (08:38)
[2018-05-16] MEDS: Aspirin 81 mg CHEW TAB* 81 MG TAB.CHEW PO SCH (09:00)
[2018-05-16] MEDS ORDERED: NS 0.9% 1000 ML* 1,000 ML IV SCH (09:48)
[2018-05-16] MEDS ORDERED: Famotidine TAB* 20 MG PO SCH (10:00)
--- NOTE | 2018-05-16 10:03 | PN ---
Progress Note - Progress Note Date of Service: 05/16/18 Note: Progress Note -- Critical Care 24 hour events/significant events: -remains intubated; on sedation with prop and fentanyl -off pressors -on rewarming phase of hypothermia/euthermia protocol -no sig overnight events noted Tele: NSR Vitals: Vital Signs Temp 98.4 F 05/16/18 09:01 Pulse 86 05/16/18 09:01 Resp 14 05/16/18 09:00 BP 134/82 05/16/18 09:00 Pulse Ox 100 05/16/18 09:01 Intake & Output 05/15/18 05/16/18 05/16/18 18:59 06:59 18:59 Intake Total 924 2386.2 Output Total 1053 945 138 Balance -129 1441.2 -138 Weight 58.2 kg Intake: IV Fluids 786 1741.2 NS (0.9%) 626 1504 NS to Maintain IV Patency 80 150.3 ns 80 86.9 IVPB 327 Levaquin 110 Potassium Chloride 217 Medicated IV 138 318 CC - Propofol/Diprivan 138 318 Oral 0 Output: NG Tube Drainage Amount 0 Rodriguez 1053 945 138 O2/Vent: AC 14/450/+5/30% Infusions: prop, fentanyl, NS 100 Medications: Acetaminophen (Tylenol Adult Liq*) 650 mg NG TUBE Q4H PRN PRN Reason: TEMPERATURE >36 DEGREES C Aspirin (Aspirin 81 Mg Chew Tab*) 81 mg PO DAILY [facility] Last Admin: 05/16/18 09:00 Dose: 81 mg Atorvastatin Calcium (Lipitor*) 80 mg PO 1700 [facility] Last Admin: 05/15/18 17:05 Dose: 80 mg Chlorhexidine Gluconate (Peridex Mouth Wash 0.12%*) 15 ml TOPICAL Q4H [facility] Last Admin: 05/16/18 08:09 Dose: 15 ml Famotidine (Pepcid Tab*) 20 mg PO DAILY [facility] Propofol (Diprivan*) 100 mls @ 3.318 mls/hr IV .(Initial Rate) [facility]; Protocol Last Admin: 05/16/18 09:00 Dose: 21.6 mls/hr Norepinephrine Bitartrate (Levophed 16 Mcg/Ml Premix Bag*) 4,000 mcg in 250 mls @ 18.75 mls/hr IV .INITIAL RATE [facility]; Protocol Fentanyl Citrate (Fentanyl Weed Thinner*) 20 mls @ 1 mls/hr TECHNICAL AID .change Q24H [facility]; Protocol Last Admin: 05/16/18 01:10 Dose: 1 mls/hr Levofloxacin/Dextrose (Levaquin 500 Mg Ivpremix(*)) 500 mg in 100 mls @ 100 mls /hr IVPB Q24H [facility] Last Admin: 05/15/18 23:51 Dose: 100 mls/hr Sodium Chloride (Ns 0.9% 1000 Ml*) 1,000 mls @ 75 mls/hr IV .PER RATE [facility] Nitroglycerin (Nitroglycerin Tab 0.4 Mg*) 0.4 mg SL Q5M PRN PRN Reason: ANGINA Ticagrelor (Brilinta*) 90 mg PO BID [facility] Last Admin: 05/16/18 08:37 Dose: 90 mg Physical Exam: General: intubated, sedated Head: normocephalic, atraumatic HEENT: no pallor, no icterus, moist mucous membranes Neck: soft, supple, no jvd CVS: normal rate, regular, no murmur Resp: bilateral air entry, no rhales, no wheeze, no rhonchi, no acc muscle use Abdomen: soft, nontender, nondistended, bowel sounds present Ext: pulses+, warm, no edema Skin: intact Neuro: sedated, moves with stimuli, cough/gag+ Labs: Laboratory Results - last 24 hr 05/14/18 05/15/18 05/15/18 15:58 10:15 12:32 WBC RBC Hgb Hct MCV MCH MCHC RDW Plt Count MPV Neut % (Auto) Lymph % (Auto) [place] % (Auto) Eos % (Auto) Baso % (Auto) Absolute Neuts (auto) Absolute Lymphs (auto) Absolute Monos (auto) Absolute Eos (auto) Absolute Basos (auto) Absolute Nucleated RBC Nucleated RBC % Sodium Potassium Chloride Carbon Dioxide Anion Gap BUN Creatinine Est GFR ( Amer) Est GFR (Non-Af Amer) BUN/Creatinine Ratio Glucose POC Glucose (mg/dL) 99 Calcium Magnesium Total Creatine Kinase 1463 H CK-MB (CK-2) 249.1 H Troponin I 23.74 H* 24.27 H* Vitamin B12 Folate 05/15/18 05/15/18 05/16/18 12:32 16:00 05:30 WBC RBC Hgb Hct MCV MCH MCHC RDW Plt Count MPV Neut % (Auto) Lymph % (Auto) [place] % (Auto) Eos % (Auto) Baso % (Auto) Absolute Neuts (auto) Absolute Lymphs (auto) Absolute Monos (auto) Absolute Eos (auto) Absolute Basos (auto) Absolute Nucleated RBC Nucleated RBC % Sodium 138 138 Potassium 3.6 3.8 Chloride 110 111 Carbon Dioxide 24 22 Anion Gap 4 5 BUN 13 9 Creatinine 0.54 0.46 L Est GFR ( Amer) 142.9 171.9 Est GFR (Non-Af Amer) 118.1 142.1 BUN/Creatinine Ratio 24.1 H 19.6 Glucose 91 87 POC Glucose (mg/dL) Calcium 8.0 L 7.8 L Magnesium 1.7 L Total Creatine Kinase CK-MB (CK-2) Troponin I 21.20 H* 11.82 H* Vitamin B12 236 Folate 10.54 05/16/18 05:30 WBC 7.9 RBC 3.29 L Hgb 10.8 L Hct 33 L MCV 99 H MCH 33 H MCHC 33 RDW 14 Plt Count 151 MPV 8.2 Neut % (Auto) 78.4 Lymph % (Auto) 12.7 L [place] % (Auto) 5.9 Eos % (Auto) 2.6 Baso % (Auto) 0.4 Absolute Neuts (auto) 6.2 Absolute Lymphs (auto) 1.0 Absolute Monos (auto) 0.5 Absolute Eos (auto) 0.2 Absolute Basos (auto) 0 Absolute Nucleated RBC 0 Nucleated RBC % 0 Sodium Potassium Chloride Carbon Dioxide Anion Gap BUN Creatinine Est GFR ( Amer) Est GFR (Non-Af Amer) BUN/Creatinine Ratio Glucose POC Glucose (mg/dL) Calcium Magnesium Total Creatine Kinase CK-MB (CK-2) Troponin I Vitamin B12 Folate Imaging: cxr 05/15 ett above gavino, RIJ TLC, Right chest tube/Heimlich valve+, no infiltrate Assessment: 53y F with pmhx of CAD s/p PCI, polysubstance abuse with alcohol/ cocaine/amphetabmines/heroin, on suboxone; presented to ER 05/14 as out of hospital VF arrest, multiple defibrillations, was restless post arrest. Noted to have been taking cocaine and caffeine tablets earlier for MOELLER, as well as suboxone. Had Inf Wall STEMI, [facility]. S/p Hypothermia protocol initiated. -Out of Hospital VT/VF Arrest -s/p hypothermia Protocol -Inferior wall STEMI; s/p SABIHA to mRCA 05/14 -Acute moderate LV systolic dysfunction, Ischemic CMP -PolySubstance abuse with cocaine/opiates/alcohol/heroin -Iatrogenic Right PTX 2/2 to line placement; s/p Heimlich valve -Gram negative blood culture+ Plan: Neuro- has been on hypothermia with euthermia target temp. will plan to decrease sedation today for neurochecks and assessement. given history of opiate and alcohol abuse, likelihood of withdrawal is there. will keep fentanyl infusion ongoing. will add precedex also. PRN ativan. Start to decrease propofol this afternoon. CVS- BP stable, no hypotension, no pressors required. Minimal Ectopy noted. s/p RCA PCI, cont DAPT/Statin. Would like to start BB for Cardiomyopathy/CAD but given her use of amphetamines/cocaine, should likely likely be a poor candidate. Will have to discuss with cardiology about inpatient use of BB. Seems STEMI could have been ppt'ed by underlying CAD with use ot Cocaine/ amphetamines. Noted TTE findings, mod LV syst dysfxn, no valv abn. Resp- stable on vent, on 30% fio2, ABG reviewed. CXR 05/15 with small apical ptx. Heimlich valve in place+ on right. CXR today. ID- euthermia maintained. wbc 7.9. noted blood cx 1/2 sets with gram neg coccobaccili+ from 05/14. Repeat Blood CX today. Hemodyn stable. Has been on levaquin 500mg q24 x1 day. Likely not contaminant but unclear source. urinalysis neg on admission. Change Levaquin to Cefepime 1gm q12h. Pending Blood cx identification. GI- NPO. NGT+. change PPI to H2b daily via ngt. If no extubation today, will plan to start ngt feed. Renal- Cr stable. Making urine. repleted K. Repleted Mg IV. Rodriguez+ Heme- hg drop since admission, was the 14 concentrated? no source of bleeding, hemodyn stable. Monitor for now. on DAPT for Coronary Stents (asa/brillinta). Endo- fingersticks q6h. Musculsk- pressure ulcer prophylaxis. Bedrest. Wounds- none Nutrition- NPO, plan for ngt feed if not extubated today DVT prophylaxis: SCDs GI prophylaxis: h2b Central Line: RIJ 05/14 Arterial Line: none Rodriguez Cathetor: yes Disposition: ICU Code Status: full code Total Critical Care time is 45 minutes, excluding procedures/teaching Tremayne Simms MD Jewelry Sorter (Electronically Signed)
[2018-05-16] MEDS ORDERED: LORazepam INJ* 2 MG/ML 1 ML VIAL IV PUSH PRN (10:40)
[2018-05-16] MEDS ORDERED: Dexmedetomidine* 400 MCG in NS 0.9% 100 ML* 96 ML IVPB SCH ×5 (11:00→12:09)
[2018-05-16] MEDS ORDERED: NS 0.9% 250 ML* 250 ML IV ONE (13:17)
--- NOTE | 2018-05-16 13:19 | RAD ---
Indication: Follow-up pneumothorax. Single frontal view of the chest performed at 1100 hours was reviewed. Comparison is made with previous exam dated May 15, 2018. No mediastinal shift is noted. Right apical chest tube is in place. Endotracheal tube is in appropriate position. Pacer pads are in place. IMPRESSION: TUBES AND LINES APPEAR IN APPROPRIATE POSITION UNCHANGED SINCE MAY 15, 2018. NO NEW FINDINGS ARE NOTED. RIGHT APICAL PNEUMOTHORAX REMAINS UNCHANGED.
[2018-05-16] MEDS: Metoprolol Tartrate TAB* 25 MG PO SCH ×2 (13:46→22:10)
[2018-05-16] MEDS: Cefepime 1 GM in Dextrose(*) 1 GM/50 ML BAG IV SCH ×2 (14:29→22:11)
[2018-05-16] MEDS ORDERED: Ondansetron INJ* 2 MG/ML VIAL IV PRN (14:40)
[2018-05-16] MEDS ORDERED: Thiamine IV* 100 MG/ML 2 ML VIAL IM ONE (14:44)
[2018-05-16] MEDS ORDERED: Acetaminophen TAB* 325 MG PO PRN (14:44)
--- NOTE | 2018-05-16 14:46 | PN ---
Progress Note - Progress Note Date of Service: 05/16/18 Note: extubated to NC successfully remains on fentanyl, will decrease dose slowly started on WAM protocol, ativan PRN afebrile zofran prn for n/v HR 80s, BP 110s, no resp distress.
[2018-05-16] MEDS: Captopril TAB* 12.5 MG PO SCH ×2 (15:28→22:11)
[2018-05-16 15:38] LABS: EGFR Non-African American 108.7 (>60)
[2018-05-16] MEDS ORDERED: fentaNYL PCA* 20 ML PCA SCH (16:10)
[2018-05-16] MEDS: Atorvastatin* 80 MG TAB PO SCH (16:44)
[2018-05-16] MEDS ORDERED: Acetaminophen IV 1GM/100ML * 100 ML IVPB ONE (17:00)
[2018-05-16] MEDS: LORazepam INJ* 2 MG/ML 1 ML VIAL IV PUSH PRN ×2 (17:28→22:59)
[2018-05-16] MEDS ORDERED: Dextrose 50% Syringe 50 ML* 25 GM/50 ML SYRINGE IV PUSH PRN (18:20)
[2018-05-16] MEDS ORDERED: Dextrose 50% Syringe 50 ML* 25 GM/50 ML SYRINGE ONE (18:22)
[2018-05-16] MEDS: D5NS 0.9% 1000 ML BAG* 1,000 ML IV SCH (18:35)
[2018-05-17] MEDS ORDERED: fentaNYL* 50 MCG/ML 2 ML VIAL (100 MCG VIAL) IV SLOW PU PRN (01:14)
[2018-05-17] MEDS ORDERED: fentaNYL* 50 MCG/ML 2 ML VIAL (100 MCG VIAL) ONE (01:39)
[2018-05-17] MEDS: LORazepam INJ* 2 MG/ML 1 ML VIAL IV PUSH PRN (02:44)
[2018-05-17] MEDS: Metoprolol Tartrate TAB* 25 MG PO SCH ×4 (05:35→21:59)
[2018-05-17 05:53] LABS: Hematocrit 33 % (35-47); Hemoglobin 10.7 g/dl (12.0-16.0); Mean Corpuscular HGB Conc 33 g/dl (31-36); Mean Corpuscular Hemoglobin 33 pg (27-31); Mean Corpuscular Volume 99 fL (80-97); Mean Platelet Volume 8.3 um3 (7.4-10.4); Platelet Count 145 10^3/ul (150-450); Red Blood Count 3.28 10^6/ul (4.00-5.40); Red Cell Distribution Width 13 % (10.5-15); White Blood Count 7.2 10^3/ul (3.5-10.8)
[2018-05-17 06:09] LABS: EGFR Non-African American 126.1 (>60)
[2018-05-17] MEDS: D5NS 0.9% 1000 ML BAG* 1,000 ML IV SCH (07:31)
--- NOTE | 2018-05-17 08:12 | RAD ---
HISTORY: hypoxia COMPARISONS: May 16, 2018 VIEWS: 1: frontal AP view of the chest at 1:12 AM FINDINGS: LINES AND TUBES: A right-sided chest tube is noted. A right internal jugular venous catheter is noted with the tip overlying the superior vena cava. There is been interval removal of a gastric tube. An endotracheal tube. CARDIOMEDIASTINAL SILHOUETTE: The cardiomediastinal silhouette is normal for portable technique. PLEURA: The costophrenic angles are sharp. No pleural abnormalities are noted. There is no appreciable residual pneumothorax. LUNG PARENCHYMA: There is diffuse pattern of coarse reticular opacification with patchy alveolar opacification of the lung bases bilaterally. ABDOMEN: The upper abdomen is clear. There is no subphrenic gas. BONES AND SOFT TISSUES: No bone or soft tissue abnormalities are noted. IMPRESSION: 1. LINES AND TUBES ABOVE. 2. DIFFUSE INTERSTITIAL OPACIFICATION. THE DIFFERENTIAL INCLUDES PULMONARY INTERSTITIAL EDEMA VERSUS CHRONIC INTERSTITIAL LUNG DISEASE. 3. PATCHY BIBASILAR ATELECTASIS VERSUS CONSOLIDATION.
[2018-05-17] MEDS: Captopril TAB* 12.5 MG PO SCH ×3 (08:19→22:00)
[2018-05-17] MEDS: Folic Acid TAB* 1 MG PO SCH (08:19)
[2018-05-17] MEDS: Multivitamins/Minerals TAB PO SCH (08:19)
[2018-05-17] MEDS: Aspirin 81 mg CHEW TAB* 81 MG TAB.CHEW PO SCH (08:19)
[2018-05-17] MEDS: Ticagrelor* 90 MG TAB PO SCH ×2 (08:19→22:00)
[2018-05-17] MEDS: Famotidine TAB* 20 MG PO SCH (08:19)
[2018-05-17] MEDS: Thiamine TAB* 100 MG TAB PO SCH (08:19)
--- NOTE | 2018-05-17 10:00 | PN ---
Progress Note - Progress Note Date of Service: 05/17/18 Note: Progress Note -- Critical Care 24 hour events/significant events: -extubated 05/16; awake now, sleepy at times, passed swallow eval this morning -tmax 98 -on NC, no distress -was hypoglycemic, on d5ns now Tele: NSR Vitals: Vital Signs Temp 98.8 F 05/17/18 08:30 Pulse 82 05/17/18 08:30 Resp 14 05/17/18 08:30 BP 124/80 05/17/18 08:30 Pulse Ox 88 05/17/18 08:30 Intake & Output 05/16/18 05/17/18 05/17/18 18:59 06:59 18:59 Intake Total 1597 1445 120 Output Total 1203 620 47 Balance 394 825 73 Weight 62 kg Intake: IV Fluids 1154 1345 NS (0.9%) 1345 NS to Maintain IV Patency 1154 IVPB 241 Magnesium 70 NS to Maintain IV Patency 92 ns 79 Medicated IV 202 100 Acetaminophen 100 CC - Propofol/Diprivan 187 precedex 15 Oral 120 Output: Rodriguez 1203 620 47 O2/Vent: NC 3L Infusions: d5ns 75cc/hr, fentanyl 25mcg/min Medications Acetaminophen (Tylenol Adult Liq*) 650 mg NG TUBE Q4H PRN PRN Reason: TEMPERATURE >36 DEGREES C Acetaminophen (Tylenol Tab*) 650 mg PO Q4H PRN PRN Reason: PAIN Last Admin: 05/17/18 01:43 Dose: 650 mg Aspirin (Aspirin 81 Mg Chew Tab*) 81 mg PO DAILY [facility] Last Admin: 05/17/18 08:19 Dose: 81 mg Atorvastatin Calcium (Lipitor*) 80 mg PO 1700 [facility] Last Admin: 05/16/18 16:44 Dose: Not Given Captopril (Capoten Tab*) 12.5 mg PO TID [facility] Dextrose (D50w Syringe 50 Ml*) 25 gm IV PUSH .FOR FS < 60 - SS PRN PRN Reason: FS < 60 Last Admin: 05/16/18 18:23 Dose: 25 gm Famotidine (Pepcid Tab*) 20 mg PO DAILY [facility] Last Admin: 05/17/18 08:19 Dose: 20 mg Folic Acid (Folvite Tab*) 1 mg PO DAILY [facility] Last Admin: 05/17/18 08:19 Dose: 1 mg Cefepime HCl (Maxipime 1 Gm In Dextrose Duplex (*)) 1 gm in 50 mls @ 100 mls/ hr IV Q12H [facility] Last Admin: 05/16/18 22:11 Dose: 100 mls/hr Fentanyl Citrate (Fentanyl Rn Stars*) 20 mls @ 0.5 mls/hr [employer] .change Q24H [facility]; Protocol Last Admin: 05/16/18 23:02 Dose: 0.5 mls/hr Dextrose/Sodium Chloride (D5ns 0.9% 1000 Ml Bag*) 1,000 mls @ 75 mls/hr IV PER RATE [facility] Last Admin: 05/17/18 07:31 Dose: 75 mls/hr Lorazepam (Ativan Inj*) 1 mg IV PUSH Q2H PRN PRN Reason: ANXIETY Last Admin: 05/17/18 02:44 Dose: 1 mg Metoprolol Tartrate (Lopressor Tab*) 25 mg PO Q6H [facility] Multivitamins/Minerals (Theragran/Minerals Tab*) 1 tab PO DAILY [facility] Last Admin: 05/17/18 08:19 Dose: 1 tab Ondansetron HCl (Zofran Inj*) 4 mg IV Q4H PRN PRN Reason: NAUSEA/VOMITING Last Admin: 05/16/18 14:48 Dose: 4 mg Potassium Chloride (Klor Con Er Tab*) 40 meq PO BID [facility] Stop: 05/17/18 21:01 Thiamine HCl (Vitamin B-1 Tab*) 100 mg PO DAILY [facility] Last Admin: 05/17/18 08:19 Dose: 100 mg Ticagrelor (Brilinta*) 90 mg PO BID [facility] Last Admin: 05/17/18 08:19 Dose: 90 mg Physical Exam: General: awake, alert, no distress Head: normocephalic, atraumatic HEENT: no pallor, no icterus, moist mucous membranes Neck: soft, supple, no jvd CVS: normal rate, regular, no murmur Resp: bilateral air entry, no rhales, no wheeze, no rhonchi, no acc muscle use Abdomen: soft, nontender, nondistended, bowel sounds present Ext: pulses+, warm, no edema Skin: intact Neuro: awake, follows all commands, sleepy at times, moves all ext. some confusion at times about place Labs: Laboratory Results - last 24 hr 05/16/18 05/16/18 05/16/18 09:55 13:35 15:00 WBC RBC Hgb Hct MCV MCH MCHC RDW Plt Count MPV Patient Temperature Not Reportable ABG pH 7.36 ABG pH (Temp Correct) Not Reportable ABG pCO2 36 ABG pCO2 (Temp Corrct Not Reportable ABG pO2 84 ABG pO2 (Temp Correct Not Reportable ABG HCO3 21.3 ABG O2 Saturation 98.6 H ABG Base Excess -4.6 L Respiration Rate 14 O2 Delivery Device ventilator Ventilator Type 450 Vent Mode cmv FiO2 30 Inspiratory Time Not Reportable PEEP 5 Pressure Support Not Reportable Pressure Control Not Reportable EPAP Not Reportable IPAP Not Reportable BiPAP Not Reportable Sodium 140 Potassium 4.0 Chloride 113 H Carbon Dioxide 22 Anion Gap 5 BUN 7 Creatinine 0.58 Est GFR ( Amer) 131.6 Est GFR (Non-Af Amer) 108.7 BUN/Creatinine Ratio 12.1 Glucose 91 POC Glucose (mg/dL) 89 Calcium 7.7 L Magnesium 1.8 L Total Bilirubin AST ALT Alkaline Phosphatase Total Protein Albumin Globulin Albumin/Globulin Ratio 05/16/18 05/16/18 05/16/18 18:12 18:17 20:09 WBC RBC Hgb Hct MCV MCH MCHC RDW Plt Count MPV Patient Temperature ABG pH ABG pH (Temp Correct) ABG pCO2 ABG pCO2 (Temp Corrct ABG pO2 ABG pO2 (Temp Correct ABG HCO3 ABG O2 Saturation ABG Base Excess Respiration Rate O2 Delivery Device Ventilator Type Vent Mode FiO2 Inspiratory Time PEEP Pressure Support Pressure Control EPAP IPAP BiPAP Sodium Potassium Chloride Carbon Dioxide Anion Gap BUN Creatinine Est GFR ( Amer) Est GFR (Non-Af Amer) BUN/Creatinine Ratio Glucose POC Glucose (mg/dL) 49 L 54 L 102 H Calcium Magnesium Total Bilirubin AST ALT Alkaline Phosphatase Total Protein Albumin Globulin Albumin/Globulin Ratio 05/16/18 05/17/18 05/17/18 23:48 01:48 05:39 WBC RBC Hgb Hct MCV MCH MCHC RDW Plt Count MPV Patient Temperature ABG pH ABG pH (Temp Correct) ABG pCO2 ABG pCO2 (Temp Corrct ABG pO2 ABG pO2 (Temp Correct ABG HCO3 ABG O2 Saturation ABG Base Excess Respiration Rate O2 Delivery Device Ventilator Type Vent Mode FiO2 Inspiratory Time PEEP Pressure Support Pressure Control EPAP IPAP BiPAP Sodium Potassium Chloride Carbon Dioxide Anion Gap BUN Creatinine Est GFR ( Amer) Est GFR (Non-Af Amer) BUN/Creatinine Ratio Glucose POC Glucose (mg/dL) 77 89 114 H Calcium Magnesium Total Bilirubin AST ALT Alkaline Phosphatase Total Protein Albumin Globulin Albumin/Globulin Ratio 05/17/18 05/17/18 05/17/18 05:40 05:40 08:48 WBC 7.2 RBC 3.28 L Hgb 10.7 L Hct 33 L MCV 99 H MCH 33 H MCHC 33 RDW 13 Plt Count 145 L MPV 8.3 Patient Temperature ABG pH ABG pH (Temp Correct) ABG pCO2 ABG pCO2 (Temp Corrct ABG pO2 ABG pO2 (Temp Correct ABG HCO3 ABG O2 Saturation ABG Base Excess Respiration Rate O2 Delivery Device Ventilator Type Vent Mode FiO2 Inspiratory Time PEEP Pressure Support Pressure Control EPAP IPAP BiPAP Sodium 138 Potassium 3.4 L Chloride 115 H Carbon Dioxide 22 Anion Gap 1 L BUN 7 Creatinine 0.51 Est GFR ( Amer) 152.6 Est GFR (Non-Af Amer) 126.1 BUN/Creatinine Ratio 13.7 Glucose 110 H POC Glucose (mg/dL) 90 Calcium 7.1 L Magnesium Total Bilirubin 0.30 AST 75 H ALT 58 H Alkaline Phosphatase 58 Total Protein 5.1 L Albumin 2.3 L Globulin 2.8 Albumin/Globulin Ratio 0.8 L Imaging: cxr 05/15 ett above gavino, RIJ TLC, Right chest tube/Heimlich valve+, no infiltrate Assessment: 53y F with pmhx of CAD s/p PCI, polysubstance abuse with alcohol/ cocaine/amphetabmines/heroin, on suboxone; presented to ER 05/14 as out of hospital VF arrest, multiple defibrillations, was restless post arrest. Noted to have been taking cocaine and caffeine tablets earlier for MOELLER, as well as suboxone. Had Inf Wall STEMI, s/p Cardiac cath with SABIHA to mRCA for 95% lesion/ thrombus. S/p Hypothermia protocol initiated. -Out of Hospital VT/VF Arrest -s/p hypothermia Protocol -Inferior wall STEMI; s/p SABIHA to mRCA 05/14 -Acute moderate LV systolic dysfunction, Ischemic CMP -PolySubstance abuse with cocaine/opiates/alcohol/heroin -Iatrogenic Right PTX 2/2 to line placement; s/p Heimlich valve -Bramhanella Catarrhalis + blood culture -Hypoglycemia Plan: Neuro- s/p hypothermia; awake/follows commands. no clear withdrawal noted. will d/c fentanyl infusion, currently at 25mcg. ativan PRN for signs of withdrawal. on CIWA protocol. CVS- BP stable, no hypotension, no pressors required. s/p RCA PCI, cont DAPT/ Statin. On BB/ACEI now. will have to talk to her about compliance and if she decides she cannot stop drugs, will ahve to d/c BB later due to risk of hypertension when combines with adrenergic agents/drugs. Noted TTE findings, mod LV syst dysfxn, no valv abn. Resp- 3L NC, cont to wean down. no distress. CXR 05/15 with small apical ptx. Heimlich valve in place+ on right. CXR 05/17 minimal/no ptx noted. ID- tmax 99. wbc normal. Blood cx 05/14 with bramhella cattarralis. Repeat blood culture sent. nontoxic appearing, no pneumonia or signs/symptoms of other infection. Cont Cefepime 1gm q12h (day#2). GI- NPO. Swallow eval passed. start PO cardiac diet. H2b daily. Renal- Cr stable. Making urine. replete KCL 40meq BID x2 Heme- hg stable 10s. DAPT for Coronary Stents (asa/brillinta). Endo- fingersticks q4h. on d5NS for hypoglycemia. unclear etiology. off insulin. will re-eval once pO started. check hemoglobin a1c. Musculsk- pressure ulcer prophylaxis. pt/ot Wounds- none Nutrition- start cardiac diet DVT prophylaxis: SCDs GI prophylaxis: h2b Central Line: RIJ 05/14; d/c cooling cathetor today Arterial Line: none Rodriguez Cathetor: yes Disposition: ICU Code Status: full code Total Critical Care time is 35 minutes, excluding procedures/teaching Tremayne Simms MD Hot Die Picker (Electronically Signed)
[2018-05-17] MEDS: Potassium Chlor TAB* 20 MEQ TAB.ER PO SCH ×2 (10:49→22:00)
[2018-05-17] MEDS: Cefepime 1 GM in Dextrose(*) 1 GM/50 ML BAG IV SCH ×2 (10:57→22:00)
[2018-05-17] MEDS ORDERED: D5NS 0.9% 1000 ML BAG* 1,000 ML IV SCH (14:26)
[2018-05-17] MEDS: Atorvastatin* 80 MG TAB PO SCH (16:03)
[2018-05-17] MEDS: Acetaminophen ADULT LIQ* 650 MG/20.3 ML UDC NG TUBE PRN ×2 (16:21→22:03)
--- NOTE | 2018-05-17 16:41 | PN ---
Progress Note - Progress Note Date of Service: 05/17/18 Note: CXR TODAY:NO RESIDUAL R PNEUMOTHORAX;HEIMLICH VALVE WITHOUT OBVIOUS LEAK, REMOVED WITH EASE FROM R ANTERIOR CHEST.NICOLE GARRISON 05/17/18 [id number]
[2018-05-17] MEDS: Nicotine PATCH 7 MG/24 HR* PATCH TRANSDERM SCH (18:13)
[2018-05-17] MEDS ORDERED: Furosemide IV* 10 MG/ML 2 ML VIAL (20 MG) IV SLOW PU ONE (21:10)
[2018-05-18] MEDS: LORazepam INJ* 2 MG/ML 1 ML VIAL IV PUSH PRN ×4 (01:27→21:36)
[2018-05-18] MEDS: Metoprolol Tartrate TAB* 25 MG PO SCH ×4 (05:08→21:36)
[2018-05-18 05:20] LABS: Hematocrit 29 % (35-47); Hemoglobin 9.7 g/dl (12.0-16.0); Mean Corpuscular HGB Conc 34 g/dl (31-36); Mean Corpuscular Hemoglobin 33 pg (27-31); Mean Corpuscular Volume 97 fL (80-97); Mean Platelet Volume 8.1 um3 (7.4-10.4); Platelet Count 180 10^3/ul (150-450); Red Blood Count 2.93 10^6/ul (4.00-5.40); Red Cell Distribution Width 13 % (10.5-15); White Blood Count 7.6 10^3/ul (3.5-10.8)
[2018-05-18 05:35] LABS: EGFR Non-African American 104.6 (>60)
[2018-05-18] MEDS: Aspirin 81 mg CHEW TAB* 81 MG TAB.CHEW PO SCH (07:57)
[2018-05-18] MEDS: Folic Acid TAB* 1 MG PO SCH (07:57)
[2018-05-18] MEDS: Famotidine TAB* 20 MG PO SCH (07:58)
[2018-05-18] MEDS: Captopril TAB* 12.5 MG PO SCH ×3 (07:58→20:00)
[2018-05-18] MEDS: Multivitamins/Minerals TAB PO SCH (08:00)
[2018-05-18] MEDS: Thiamine TAB* 100 MG TAB PO SCH (08:00)
[2018-05-18] MEDS: Ticagrelor* 90 MG TAB PO SCH ×2 (08:00→20:00)
--- NOTE | 2018-05-18 08:36 | RAD ---
HISTORY: congestion vs pneumonia; s/p heimlich valve remova COMPARISONS: May 17, 2018 VIEWS: 1: frontal AP view of the chest at 5:58 AM FINDINGS: LINES AND TUBES: A right internal jugular venous catheter is noted with the tip overlying the superior vena cava. There has been interval removal of right-sided chest tube. CARDIOMEDIASTINAL SILHOUETTE: The cardiomediastinal silhouette is normal for portable technique. PLEURA: The costophrenic angles are sharp. No pleural abnormalities are noted. There is no appreciable residual pneumothorax. LUNG PARENCHYMA: There has been interval development of confluent alveolar opacification of the right lower lung. ABDOMEN: The upper abdomen is clear. There is no subphrenic gas. BONES AND SOFT TISSUES: No bone or soft tissue abnormalities are noted. IMPRESSION: 1. RIGHT LOWER LUNG CONSOLIDATION. 2. LINES AND TUBES ABOVE. R1F
[2018-05-18] MEDS ORDERED: Furosemide IV* 10 MG/ML 2 ML VIAL (20 MG) IV SLOW PU ONE (09:03)
[2018-05-18] MEDS: Acetaminophen ADULT LIQ* 650 MG/20.3 ML UDC NG TUBE PRN ×3 (09:05→20:00)
--- NOTE | 2018-05-18 09:32 | PN ---
Progress Note - Progress Note Date of Service: 05/18/18 Note: Progress Note -- Critical Care 24 hour events/significant events: -awake, alert. in bed. no distress -persistently febrile 101 -cough+, sputum+; on NC 2 L -given diuretics yesterday night -in chair today again Tele: NSR Vitals: Vital Signs Temp 100.9 F 05/18/18 09:00 Pulse 96 05/18/18 09:00 Resp 24 05/18/18 09:00 BP 153/81 05/18/18 09:00 Pulse Ox 90 05/18/18 09:00 Intake & Output 05/17/18 05/18/18 05/18/18 18:59 06:59 18:59 Intake Total 1026 1456 Output Total 467 1330 205 Balance 559 126 -205 Weight 64.4 kg Intake: IV Fluids 854 1392 D5 NS 830 1279 NS (0.9%) 24 113 IVPB 52 64 ABX - CEFEPIME 64 NS (0.9%) 52 Oral 120 Output: Schulz 467 1330 205 O2/Vent: NC 2L Infusions: d5ns 100cc/hr Medications Acetaminophen (Tylenol Adult Liq*) 650 mg NG TUBE Q4H PRN PRN Reason: TEMPERATURE >36 DEGREES C Last Admin: 05/18/18 09:05 Dose: 650 mg Aspirin (Aspirin 81 Mg Chew Tab*) 81 mg PO DAILY [facility] Last Admin: 05/18/18 07:57 Dose: 81 mg Atorvastatin Calcium (Lipitor*) 80 mg PO 1700 [facility] Last Admin: 05/17/18 16:03 Dose: 80 mg Captopril (Capoten Tab*) 12.5 mg PO TID [facility] Last Admin: 05/18/18 07:58 Dose: 12.5 mg Device (Nicotine Mouth Piece*) 1 each INH .PRN PRN PRN Reason: CRAVINGS Dextrose (D50w Syringe 50 Ml*) 25 gm IV PUSH .FOR FS < 60 - SS PRN PRN Reason: FS < 60 Last Admin: 05/16/18 18:23 Dose: 25 gm Famotidine (Pepcid Tab*) 20 mg PO DAILY [facility] Last Admin: 05/18/18 07:58 Dose: 20 mg Folic Acid (Folvite Tab*) 1 mg PO DAILY [facility] Last Admin: 05/18/18 07:57 Dose: 1 mg Cefepime HCl (Maxipime 1 Gm In Dextrose Duplex (*)) 1 gm in 50 mls @ 100 mls/ hr IV Q12H [facility] Last Admin: 05/17/18 22:00 Dose: 100 mls/hr Dextrose/Sodium Chloride (D5ns 0.9% 1000 Ml Bag*) 1,000 mls @ 100 mls/hr IV PER RATE [facility] Last Admin: 05/17/18 19:20 Dose: 100 mls/hr Vancomycin HCl 1,000 mg/ (Sodium Chloride) 250 mls @ 166.667 mls/hr IVPB ONCE ONE Stop: 05/18/18 11:29 Lorazepam (Ativan Inj*) 1 mg IV PUSH Q2H PRN PRN Reason: ANXIETY Last Admin: 05/18/18 01:27 Dose: 1 mg Metoprolol Tartrate (Lopressor Tab*) 25 mg PO Q6H [facility] Last Admin: 05/18/18 09:05 Dose: 25 mg Multivitamins/Minerals (Theragran/Minerals Tab*) 1 tab PO DAILY [facility] Last Admin: 05/18/18 08:00 Dose: 1 tab Nicotine (Nicotine Patch 7 Mg/24 Hr*) 1 patch TRANSDERM Q24H [facility] Last Admin: 05/17/18 18:13 Dose: 1 patch Nicotine (Nicotine Inhaler*) 10 mg INH Q2H PRN PRN Reason: CRAVINGS Ondansetron HCl (Zofran Inj*) 4 mg IV Q4H PRN PRN Reason: NAUSEA/VOMITING Last Admin: 05/16/18 14:48 Dose: 4 mg Pharmacy Consult (Vancomycin Per Pharmacy*) 1 note FOLLOW UP .VANC PER PHARMACY [facility] Potassium Chloride (Klor Con Er Tab*) 40 meq PO Q12H [facility] Stop: 05/19/18 22:01 Thiamine HCl (Vitamin B-1 Tab*) 100 mg PO DAILY [facility] Last Admin: 05/18/18 08:00 Dose: 100 mg Ticagrelor (Brilinta*) 90 mg PO BID [facility] Last Admin: 05/18/18 08:00 Dose: 90 mg Physical Exam: General: awake, alert, no distress Head: normocephalic, atraumatic HEENT: no pallor, no icterus, moist mucous membranes Neck: soft, supple, no jvd CVS: normal rate, regular, no murmur Resp: bilateral air entry, Right basal rhales++, no wheeze, no rhonchi, no acc muscle use Abdomen: soft, nontender, nondistended, bowel sounds present Ext: pulses+, warm, no edema Skin: intact Neuro: awake, follows all commands, moves all ext Labs: Laboratory Results - last 24 hr 05/17/18 05/17/18 05/17/18 05:40 14:24 18:12 WBC RBC Hgb Hct MCV MCH MCHC RDW Plt Count MPV Sodium Potassium Chloride Carbon Dioxide Anion Gap BUN Creatinine Est GFR ( Amer) Est GFR (Non-Af Amer) BUN/Creatinine Ratio Glucose POC Glucose (mg/dL) 65 L 135 H Hemoglobin A1c 5.3 Calcium Total Bilirubin Direct Bilirubin Indirect Bilirubin AST ALT Alkaline Phosphatase Total Protein Albumin Globulin Albumin/Globulin Ratio 05/17/18 05/18/18 05/18/18 23:52 05:00 05:00 WBC 7.6 RBC 2.93 L Hgb 9.7 L Hct 29 L MCV 97 MCH 33 H MCHC 34 RDW 13 Plt Count 180 MPV 8.1 Sodium 139 Potassium 3.7 Chloride 113 H Carbon Dioxide 23 Anion Gap 3 BUN 8 Creatinine 0.60 Est GFR ( Amer) 126.5 Est GFR (Non-Af Amer) 104.6 BUN/Creatinine Ratio 13.3 Glucose 123 H POC Glucose (mg/dL) 152 H Hemoglobin A1c Calcium 7.3 L Total Bilirubin 0.20 Direct Bilirubin 0.10 Indirect Bilirubin 0.1 L AST 55 H ALT 49 Alkaline Phosphatase 60 Total Protein 5.3 L Albumin 2.3 L Globulin 3.0 Albumin/Globulin Ratio 0.8 L 05/18/18 05:02 WBC RBC Hgb Hct MCV MCH MCHC RDW Plt Count MPV Sodium Potassium Chloride Carbon Dioxide Anion Gap BUN Creatinine Est GFR ( Amer) Est GFR (Non-Af Amer) BUN/Creatinine Ratio Glucose POC Glucose (mg/dL) 131 H Hemoglobin A1c Calcium Total Bilirubin Direct Bilirubin Indirect Bilirubin AST ALT Alkaline Phosphatase Total Protein Albumin Globulin Albumin/Globulin Ratio Imaging: cxr 05/15 ett above gavino, RIJ TLC, Right chest tube/Heimlich valve+, no infiltrate cxr 05/18 - right heimlich lara removed, no ptx; right lower lobe consolidation+ + Assessment: 53y F with pmhx of CAD s/p PCI, polysubstance abuse with alcohol/ cocaine/amphetabmines/heroin, on suboxone; presented to ER 05/14 as out of hospital VF arrest, multiple defibrillations, was restless post arrest. Noted to have been taking cocaine and caffeine tablets earlier for MOELLER, as well as suboxone. Had Inf Wall STEMI, s/p Cardiac cath with SABIHA to mRCA for 95% lesion/ thrombus. S/p Hypothermia protocol initiated. -Out of Hospital VT/VF Arrest -s/p hypothermia Protocol -Inferior wall STEMI; s/p SABIHA to mRCA 05/14 -Acute moderate LV systolic dysfunction, Ischemic CMP -PolySubstance abuse with cocaine/opiates/alcohol/heroin -Iatrogenic Right PTX 2/2 to line placement; s/p Heimlich valve -Bramhanella Catarrhalis + blood culture -Hypoglycemia -Right lower lobe pneumonia Plan: Neuro- s/p hypothermia; awake/follows commands. delirium resolved it seems. ativan PRN for signs of withdrawal. on CIWA protocol. CVS- BP stable, no hypotension, no pressors required. s/p RCA PCI, cont DAPT/ Statin. On BB/ACEI post SD and for CMP. will have to talk to her about compliance prior to discharge if she decides she cannot stop drugs, will ahve to d/c BB later due to risk of hypertension when combines with adrenergic agents /drugs. Noted TTE findings, mod LV syst dysfxn, no valv abn. Resp- 2L NC, cont to wean. CXR 05/18 with no PTX, tube removed, new RLL consolidation+. IV abx. Bronchodilators PRN. CT chest non-cont to eval pneumonia ID- tmax 101. wbc normal. Blood cx 05/14 with bramhella cattarralis; repeat blood cx 05/16 negative so far. CXR 05/18 with new RLL consolidation. On Cefepime 1mg q12h. Send sputum culture, legionella/strept ag/chlamydia. Change cefepime to merrem for anaerobic coverage for possible aspiration due to cardiac arrest. Add Vanco 1gm q12h (pharmacy dosing) GI- cardiac diet. H2b daily. Renal- Cr stable. Making urine. replete KCL 40meq BID x4. Repeat Lasix 20mg IV x1. Can likely d/c schulz later today after lasix administered. Heme- hg stable 9-10s. DAPT for Coronary Stents (asa/brillinta). Endo- fingersticks q4h. on d5NS for hypoglycemia. Fingersticks better. Dec to 50cc/hr. Tolerating PO diet. hba1c 5.3. Musculsk- pressure ulcer prophylaxis. pt/ot. oob to chair/ambulate. Wounds- none Nutrition- cardiac diet DVT prophylaxis: SCDs GI prophylaxis: h2b Central Line: RIDiane 05/14 Arterial Line: none Schulz Cathetor: yes Disposition: ICU Code Status: full code Total Critical Care time is 35 minutes, excluding procedures/teaching Tremayne Simms MD Ware Dresser (Electronically Signed)
[2018-05-18] MEDS ORDERED: Albuterol 2.5 MG/3 ML NEB.SOL* (0.083%) INH PRN (09:38)
[2018-05-18] MEDS: Potassium Chlor TAB* 20 MEQ TAB.ER PO SCH ×2 (09:45→21:36)
[2018-05-18] MEDS: Mouth Piece, Nicotine* 1 EACH CARTRIDGE INH PRN (09:45)
[2018-05-18] MEDS ORDERED: Vancomycin per Pharmacy* NOTE FOLLOW UP SCH (10:00)
[2018-05-18] MEDS ORDERED: Vancomycin(*) 1,000 MG in NS 0.9% 250 ML* 250 ML IVPB ONE (10:00)
[2018-05-18] MEDS ORDERED: Meropenem 1 GM PREMIX(*) 1 GM/50 ML BAG IV ONE (10:00)
--- NOTE | 2018-05-18 12:19 | RAD ---
Indication: Pneumonia. CT of the chest performed without IV contrast administration. Coronal and sagittal reconstructed images were obtained. No prior study is available for comparison Inferior thyroid lobes are unremarkable. Small 5 mm previously tracheal lymph nodes are noted. No hilar adenopathy is noted. The heart demonstrates no pericardial effusion. The lung arvizu demonstrate areas of airspace disease in the right upper lobe and left upper lobe. Additional airspace disease is noted in the lung bases bilaterally with consolidation and air bronchograms. Nodular densities likely represent areas of consolidation are noted although follow-up exam is suggested. Moderate degree of bilateral pleural effusions are noted worse on the right than on the left. Visualized abdominal organs are grossly unremarkable. IMPRESSION: Bilateral pleural effusions greater on the right than on the left with areas of consolidation in the lung bases with air bronchograms. Nodular areas are noted bilaterally likely representing areas of pneumonia. Biapical upper lobe infiltrates are also noted.
[2018-05-18] MEDS: Atorvastatin* 80 MG TAB PO SCH (16:25)
[2018-05-18] MEDS: Meropenem 1 GM PREMIX(*) 1 GM/50 ML BAG IV SCH (16:34)
[2018-05-18] MEDS: Benzocaine/Menthol LOZ* 1 LOZENGE PO PRN (16:42)
[2018-05-18] MEDS: Vancomycin(*) 1,000 MG in NS 0.9% 250 ML* 250 ML IVPB SCH (18:10)
[2018-05-18] MEDS: Nicotine PATCH 7 MG/24 HR* PATCH TRANSDERM SCH (19:59)
[2018-05-18] MEDS: Nicotine Inhaler* 10 MG AMP INH PRN (20:00)
[2018-05-18] MEDS: D5NS 0.9% 1000 ML BAG* 1,000 ML IV SCH (21:36)
[2018-05-19] MEDS: Mouth Piece, Nicotine* 1 EACH CARTRIDGE INH PRN (00:10)
[2018-05-19] MEDS: LORazepam INJ* 2 MG/ML 1 ML VIAL IV PUSH PRN ×8 (00:11→22:04)
[2018-05-19] MEDS: Nicotine Inhaler* 10 MG AMP INH PRN (00:11)
[2018-05-19] MEDS: Meropenem 1 GM PREMIX(*) 1 GM/50 ML BAG IV SCH ×3 (01:45→20:34)
[2018-05-19] MEDS: Benzocaine/Menthol LOZ* 1 LOZENGE PO PRN (02:20)
[2018-05-19] MEDS: Vancomycin(*) 1,000 MG in NS 0.9% 250 ML* 250 ML IVPB SCH ×2 (02:20→09:54)
[2018-05-19 03:54] LABS: Hematocrit 31 % (35-47); Hemoglobin 10.2 g/dl (12.0-16.0); Mean Corpuscular HGB Conc 33 g/dl (31-36); Mean Corpuscular Hemoglobin 32 pg (27-31); Mean Corpuscular Volume 97 fL (80-97); Mean Platelet Volume 8.1 um3 (7.4-10.4); Platelet Count 201 10^3/ul (150-450); Red Blood Count 3.17 10^6/ul (4.00-5.40); Red Cell Distribution Width 13 % (10.5-15); White Blood Count 7.6 10^3/ul (3.5-10.8)
[2018-05-19 04:10] LABS: EGFR Non-African American 87.5 (>60)
[2018-05-19] MEDS: Metoprolol Tartrate TAB* 50 mg PO SCH ×3 (05:17→20:37)
[2018-05-19] MEDS: Acetaminophen ADULT LIQ* 650 MG/20.3 ML UDC NG TUBE PRN ×2 (07:50→19:19)
[2018-05-19] MEDS: Famotidine TAB* 20 MG PO SCH (07:51)
[2018-05-19] MEDS: Folic Acid TAB* 1 MG PO SCH (07:51)
[2018-05-19] MEDS: Multivitamins/Minerals TAB PO SCH (07:52)
[2018-05-19] MEDS: Ticagrelor* 90 MG TAB PO SCH (07:52)
[2018-05-19] MEDS: Captopril TAB* 12.5 MG PO SCH ×3 (07:53→20:37)
[2018-05-19] MEDS: Thiamine TAB* 100 MG TAB PO SCH (07:54)
[2018-05-19] MEDS: Aspirin 81 mg CHEW TAB* 81 MG TAB.CHEW PO SCH (07:54)
[2018-05-19] MEDS: Potassium Chlor TAB* 20 MEQ TAB.ER PO SCH ×2 (09:24→20:37)
[2018-05-19] MEDS ORDERED: Vancomycin Trough Check NOTE FOLLOW UP ONE ×2 (09:30→15:30)
--- NOTE | 2018-05-19 12:54 | PN ---
Subjective Date of Service: 05/19/18 Interval History: agitated wanting to leave hospital, was found trying to take off her IJ. needing/getting frequent ativan. spiked another fever last night but overall improved fever trends daughter and sister in room. Psych consulted for capacity assessment Later stated SI and 1:1 added. states has not really been on suboxone for months, makes nauseous heroin use every 5 weeks or so. attests to more recent meth use 3 days prior. Objective Active Medications: Acetaminophen (Tylenol Adult Liq*) 650 mg NG TUBE Q4H PRN PRN Reason: TEMPERATURE >36 DEGREES C Last Admin: 05/19/18 07:50 Dose: 650 mg Albuterol (Ventolin 2.5 Mg/3 Ml Neb.Carol*) 2.5 mg INH Q4H PRN PRN Reason: SOB/WHEEZING Aspirin (Aspirin 81 Mg Chew Tab*) 81 mg PO DAILY [facility] Last Admin: 05/19/18 07:54 Dose: 81 mg Atorvastatin Calcium (Lipitor*) 80 mg PO 1700 [facility] Last Admin: 05/18/18 16:25 Dose: 80 mg Captopril (Capoten Tab*) 18.75 mg PO TID [facility] Last Admin: 05/19/18 07:53 Dose: 18.75 mg Device (Nicotine Mouth Piece*) 1 each INH .PRN PRN PRN Reason: CRAVINGS Last Admin: 05/19/18 00:10 Dose: 1 each Dextrose (D50w Syringe 50 Ml*) 25 gm IV PUSH .FOR FS < 60 - SS PRN PRN Reason: FS < 60 Last Admin: 05/16/18 18:23 Dose: 25 gm Famotidine (Pepcid Tab*) 20 mg PO DAILY [facility] Last Admin: 05/19/18 07:51 Dose: 20 mg Folic Acid (Folvite Tab*) 1 mg PO DAILY [facility] Last Admin: 05/19/18 07:51 Dose: 1 mg Meropenem (Merrem 1 Gm Premix(*)) 1 gm in 50 mls @ 100 mls/hr IV Q8H [facility] Last Admin: 05/19/18 08:17 Dose: 100 mls/hr Dextrose/Sodium Chloride (D5ns 0.9% 1000 Ml Bag*) 1,000 mls @ 50 mls/hr IV PER RATE [facility] Last Admin: 05/18/18 21:36 Dose: 50 mls/hr Vancomycin HCl 1,250 mg/ (Sodium Chloride) 250 mls @ 166.667 mls/hr IVPB Q8H [facility] Lorazepam (Ativan Inj*) 1 mg IV PUSH Q2H PRN PRN Reason: ANXIETY Last Admin: 05/19/18 12:21 Dose: 1 mg Metoprolol Tartrate (Lopressor Tab*) 50 mg PO Q8HR [facility] Last Admin: 05/19/18 05:17 Dose: 50 mg Multivitamins/Minerals (Theragran/Minerals Tab*) 1 tab PO DAILY [facility] Last Admin: 05/19/18 07:52 Dose: 1 tab Nicotine (Nicotine Patch 7 Mg/24 Hr*) 1 patch TRANSDERM Q24H [facility] Last Admin: 05/18/18 19:59 Dose: 1 patch Nicotine (Nicotine Inhaler*) 10 mg INH Q2H PRN PRN Reason: CRAVINGS Last Admin: 05/19/18 00:11 Dose: 10 mg Ondansetron HCl (Zofran Inj*) 4 mg IV Q4H PRN PRN Reason: NAUSEA/VOMITING Last Admin: 05/16/18 14:48 Dose: 4 mg Pharmacy Consult (Vancomycin Per Pharmacy*) 1 note FOLLOW UP .VANC PER PHARMACY [facility] Pharmacy Profile Note (Vancomycin Trough Check) 1 note FOLLOW UP 1530 ONE Stop: 05/19/18 15:31 Potassium Chloride (Klor Con Er Tab*) 40 meq PO Q12H [facility] Stop: 05/19/18 22:01 Last Admin: 05/19/18 09:24 Dose: 40 meq Thiamine HCl (Vitamin B-1 Tab*) 100 mg PO DAILY [facility] Last Admin: 05/19/18 07:54 Dose: 100 mg Throat Lozenges (Chloraseptic Shaniqua*) 1 shaniqua PO Q6H PRN PRN Reason: SORE THROAT Last Admin: 05/19/18 02:20 Dose: 1 shaniqua Ticagrelor (Brilinta*) 90 mg PO BID [facility] Last Admin: 05/19/18 07:52 Dose: 90 mg Vital Signs - 8 hr 05/19/18 05/19/18 05/19/18 05:24 06:07 07:49 Temperature 98.7 F 99.6 F Pulse Rate 92 87 Respiratory 18 20 18 Rate Blood Pressure 139/73 139/75 (mmHg) O2 Sat by Pulse 97 97 Oximetry 05/19/18 05/19/18 05/19/18 08:00 08:10 09:55 Temperature Pulse Rate Respiratory 18 18 18 Rate Blood Pressure (mmHg) O2 Sat by Pulse 97 Oximetry 05/19/18 05/19/18 05/19/18 10:12 10:23 11:39 Temperature 97.7 F Pulse Rate 86 Respiratory 20 22 18 Rate Blood Pressure 138/75 (mmHg) O2 Sat by Pulse 96 Oximetry 05/19/18 12:21 Temperature Pulse Rate Respiratory 22 Rate Blood Pressure (mmHg) O2 Sat by Pulse Oximetry Oxygen Devices in Use Now: None Appearance: NAD but occasionally agitated. older that stated age. Eyes: No Scleral Icterus Neck: NL Appearance and Movements; NL JVP Respiratory: Symmetrical Chest Expansion and Respiratory Effort, - - reduced lung sounds on R>L. no wheezing Cardiovascular: NL Sounds; No Murmurs; No JVD, RRR Abdominal: NL Sounds; No Tenderness; No Distention, No Hepatosplenomegaly Extremities: No Edema Skin: No Rash or Ulcers Neurological: Alert and Oriented x 3 Lines/Tubes/Other Access: Clean, Dry and Intact Central Line Result Diagrams: 05/19/18 03:36 05/19/18 03:36 Additional Lab and Data: Laboratory Results - last 24 hr 05/18/18 05/19/18 05/19/18 23:39 03:36 03:36 WBC 7.6 RBC 3.17 L Hgb 10.2 L Hct 31 L MCV 97 MCH 32 H MCHC 33 RDW 13 Plt Count 201 MPV 8.1 Sodium 139 Potassium 4.1 Chloride 111 Carbon Dioxide 24 Anion Gap 4 BUN 10 Creatinine 0.70 Est GFR ( Amer) 105.9 Est GFR (Non-Af Amer) 87.5 BUN/Creatinine Ratio 14.3 Glucose 133 H POC Glucose (mg/dL) 135 H Calcium 8.1 L Vancomycin Trough 05/19/18 05/19/18 05/19/18 05:17 08:18 12:07 WBC RBC Hgb Hct MCV MCH MCHC RDW Plt Count MPV Sodium Potassium Chloride Carbon Dioxide Anion Gap BUN Creatinine Est GFR ( Amer) Est GFR (Non-Af Amer) BUN/Creatinine Ratio Glucose POC Glucose (mg/dL) 119 H 115 H Calcium Vancomycin Trough 12.9 Microbiology and Other Data: Microbiology 05/16/18 13:45 Blood Venous Aerobic Blood Culture - Preliminary No Growth Day 3 05/16/18 13:45 Blood Venous Anaerobic Blood Culture - Preliminary No Growth Day 3 05/16/18 13:45 Blood Venous Aerobic Blood Culture - Preliminary No Growth Day 3 05/16/18 13:45 Blood Venous Anaerobic Blood Culture - Preliminary No Growth Day 3 05/14/18 23:40 Blood Venous Aerobic Blood Culture - Preliminary No Growth Day 4 05/14/18 23:40 Blood Venous Anaerobic Blood Culture - Preliminary No Growth Day 4 05/14/18 23:30 Blood Venous Aerobic Blood Culture - Final Branhamella Catarrhalis 05/14/18 23:30 Blood Venous Anaerobic Blood Culture - Preliminary No Growth Day 4 05/18/18 13:54 Urine Legionella Urinary Antigen - Final Negative Legionella Antigen 05/18/18 13:54 Urine Streptococcus pneumoniae Ag Screen - Final Negative S. pneumo Antigen 05/18/18 09:23 Sputum Expectorated Gram Stain - Final 05/14/18 17:25 Nasal Nasal Screen MRSA (PCR) - Final Mrsa Not Detected Assess/Plan/Problems-Billing Assessment: - Patient Problems (1) Fever Current Visit: Yes Status: Acute Code(s): R50.9 - FEVER, UNSPECIFIED SNOMED Code(s): 221438986 Comment: continue meropenem. likely stop vanc tomorrow pna with potential for aspiration during code bacteremia (2) Hx-sudden cardiac arrest Current Visit: Yes Status: Acute Code(s): Z86.74 - PERSONAL HISTORY OF SUDDEN CARDIAC ARREST SNOMED Code(s): 332423407 Comment: in setting of stemi; RCA occlusion (3) Pneumothorax Current Visit: Yes Status: Acute Code(s): J93.9 - PNEUMOTHORAX, UNSPECIFIED SNOMED Code(s): 17881839 Comment: likely iatrogenic in setting of extreme agitation during central line placement s/p heimloch valve (4) Polysubstance abuse Current Visit: Yes Status: Acute Code(s): F19.10 - OTHER PSYCHOACTIVE SUBSTANCE ABUSE, UNCOMPLICATED SNOMED Code(s): 369726902 Comment: patient refusing drug rehab (5) CAD (coronary artery disease) Current Visit: Yes Status: Acute Code(s): I25.10 - ATHSCL HEART DISEASE OF [place] CORONARY ARTERY W/O ANG PCTRS SNOMED Code(s): 52253968 Comment: was brilinta bid now dr winslow changing to once daily plavix aspririn BB statin (6) STEMI (ST elevation myocardial infarction) Current Visit: Yes Status: Acute Code(s): I21.3 - ST ELEVATION (STEMI) MYOCARDIAL INFARCTION OF [facility] SITE SNOMED Code(s): 467304452 Status and Disposition: medicine inpatient
--- NOTE | 2018-05-19 14:43 | CONSULT ---
Consult Consult: Consult for Medical Decision Making Capacity S: Psychiatry is asked to evaluate capacity in this 53 y.o. single, white, homeless female with a history of mood dysregulation, substance misuse and multiple medical comorbidities who is currently admitted to the Hospitalist service following V-fib arrest and STEMI. According to medical attending, Dr. Den Carmichael, the patient has had a stent placed and is now on IV antibiotics and antiplatelet agents. She is addicted to multiple substances such as opioids, methamphetamines, cocaine and alcohol and tenuously housed in the local rescue mission. This morning she attempted to pull out her central line and leave the hospital AMA. Prior to seeing her I am told by [facility] staff that she made a suicidal statement and was placed on a 1:1. On exam the patient appears significantly older than her stated age. She is able to say that she suffered a heart attack and believes she has "pneumonia." I tried in multiple ways to get a sense of whether she understood the risks of leaving the hospital against medical advice but she is vague and unconvincing. "Oh, I don't know. Some bad things might happen. But then again, some good things might happen to." She repeatedly asserts her belief that she would be fine receiving oral medications in the outpatient setting. "Just give me the antibiotics by mouth along with some plavix. I've been through this before." When asked about suicidal ideations, she responds "I would never do anything like that. That's not God's way." O: middle-aged, adentulous white female, appears cande and minimally groomed in a patient gown; calm and cooperative; normal speech; euthymic with anxious affect; denies SI or HI; denies AH or VH; insight and judgment are limited; cognitively awake, alert and oriented A/P: Capacity: the patient is not able to state what the possible risks would be if she were allowed to leave the hospital before completing treatment. In my judgment she lacks capacity to leave AMA. She is a risk to elope so I would continue 1:1 observations to prevent this. She does not appear to be a suicide risk. Psychiatry will be signing off but can be reconsulted in the event of any significant changes in her presentation.
[2018-05-19] MEDS ORDERED: Clopidogrel TAB* 300 MG PO ONE (14:50)
[2018-05-19] MEDS: Nicotine PATCH 14 MG/24 HR* PATCH TRANSDERM SCH (16:00)
[2018-05-19] MEDS: Atorvastatin* 80 MG TAB PO SCH (16:54)
[2018-05-19] MEDS: Vancomycin(*) 1,250 MG in NS 0.9% 250 ML* 250 ML IVPB SCH (18:06)
[2018-05-19] MEDS: D5NS 0.9% 1000 ML BAG* 1,000 ML IV SCH (20:34)
[2018-05-19] MEDS ORDERED: Nicotine Patch Removal NOTE PATCH OFF SCH (21:00)
[2018-05-19] MEDS ORDERED: LORazepam INJ* 2 MG/ML 1 ML VIAL IV PUSH PRN (22:20)
[2018-05-20] MEDS: Vancomycin(*) 1,250 MG in NS 0.9% 250 ML* 250 ML IVPB SCH (00:14)
[2018-05-20] MEDS: LORazepam INJ* 2 MG/ML 1 ML VIAL IV PUSH PRN ×4 (00:36→11:31)
[2018-05-20] MEDS: Meropenem 1 GM PREMIX(*) 1 GM/50 ML BAG IV SCH ×2 (02:12→11:31)
[2018-05-20] MEDS: Acetaminophen ADULT LIQ* 650 MG/20.3 ML UDC NG TUBE PRN ×2 (03:55→07:56)
[2018-05-20 06:14] LABS: ABS Basophils 0.1 10^3/ul (0-0.2); ABS Eosinophils 0.6 10^3/ul (0-0.6); ABS Lymphocytes 1.7 10^3/ul (1.0-4.8); ABS Monocytes 0.8 10^3/ul (0-0.8); ABS Neutrophils 4.8 10^3/ul (1.5-7.7); ABS Nucleated RBC 0 10^3/ul; Eosinophil % 7.1 % (0-6); Hematocrit 33 % (35-47); Hemoglobin 11.1 g/dl (12.0-16.0); Lymphocyte % 21.6 % (25-47); Mean Corpuscular HGB Conc 34 g/dl (31-36); Mean Corpuscular Hemoglobin 33 pg (27-31); Mean Corpuscular Volume 96 fL (80-97); Nucleated Red Blood Cells % 0; Platelet Count 250 10^3/ul (150-450); Red Blood Count 3.41 10^6/ul (4.00-5.40); Red Cell Distribution Width 13 % (10.5-15); White Blood Count 8.1 10^3/ul (3.5-10.8)
[2018-05-20] MEDS: Multivitamins/Minerals TAB PO SCH (07:57)
[2018-05-20] MEDS: Folic Acid TAB* 1 MG PO SCH (07:57)
[2018-05-20] MEDS: Famotidine TAB* 20 MG PO SCH (07:57)
[2018-05-20] MEDS: Thiamine TAB* 100 MG TAB PO SCH (07:57)
[2018-05-20] MEDS: Aspirin 81 mg CHEW TAB* 81 MG TAB.CHEW PO SCH (07:57)
[2018-05-20] MEDS: Nicotine PATCH 14 MG/24 HR* PATCH TRANSDERM SCH (07:58)
[2018-05-20] MEDS: Mouth Piece, Nicotine* 1 EACH CARTRIDGE INH PRN (08:02)
[2018-05-20] MEDS: Nicotine Inhaler* 10 MG AMP INH PRN (08:03)
--- NOTE | 2018-05-20 08:09 | RAD ---
HISTORY: sob COMPARISONS: May 18, 2018 VIEWS: 1: frontal AP view of the chest at 3:45 AM FINDINGS: LINES AND TUBES: A right internal jugular venous catheter is noted with the tip overlying the superior vena cava. CARDIOMEDIASTINAL SILHOUETTE: The cardiomediastinal silhouette is normal for portable technique. PLEURA: The costophrenic angles are sharp. No pleural abnormalities are noted. LUNG PARENCHYMA: There is persistent but improved confluent alveolar opacification of the right lower lung field. ABDOMEN: The upper abdomen is clear. There is no subphrenic gas. BONES AND SOFT TISSUES: No bone or soft tissue abnormalities are noted. IMPRESSION: PERSISTENT BUT IMPROVED CONSOLIDATION OF THE RIGHT LOWER LUNG. LINES AND TUBES ABOVE. R1F
[2018-05-20] MEDS ORDERED: Metoprolol Succinate XL TAB* 100 MG PO SCH (09:00)
[2018-05-20] MEDS ORDERED: Lisinopril TAB* 10 MG PO SCH (09:00)
[2018-05-20] MEDS ORDERED: Clopidogrel TAB* 75 MG PO SCH (09:00)
[2018-05-20] MEDS ORDERED: Furosemide TAB* 40 MG PO SCH (11:00)
[2018-05-20 11:41] VITALS: BP 138/88
[2018-05-20] MEDS ORDERED: Vancomycin Trough Check NOTE FOLLOW UP ONE (15:30)
[2018-05-20] MEDS ORDERED: Amoxicillin/Clavulanate TAB* 875 MG PO SCH (21:00)
--- NOTE | 2018-05-21 08:43 | DS ---
DISCHARGE SUMMARY: DATE OF ADMISSION: 05/14/18 DATE OF LEAVING AGAINST MEDICAL ADVICE: 05/20/18 ADMITTING PROVIDER: Dr. Lyssa Allen. PRIMARY CARE PROVIDER: Unclear, but has seen Dr. Edgar Benito this year in 2018, although only for 1 occasion. CHIEF COMPLAINT: Cardiac arrest. PRINCIPAL DIAGNOSES: Cardiac arrest in the setting of likely use of cocaine and caffeine pills and known coronary artery disease and history of heroin abuse and admitted recent methamphetamine use; ST elevation myocardial infarction, status post stents; intubation for respiratory protection; iatrogenic apical right pneumothorax in the setting of emergent right IJ placement in the setting of extreme agitation; Branhamella catarrhalis bacteremia; pneumonia; systolic congestive heart failure (acute) in the setting of recent myocardial infarction; polysubstance abuse. HISTORY OF PRESENT ILLNESS AND HOSPITAL COURSE: Maira Desai is a 53-year-old female with past medical history of heroin, methamphetamine, cocaine, polysubstance abuse, cardiac disease, status post myocardial infarction, hypertension, who is living at the [facility]. The EMS reported that she injected herself with Suboxone and took 2 caffeine pills for headaches. She denies any use of Suboxone but admitted later to methamphetamine use and recent (5 days or so ago) heroin use. She was found unresponsive in the emergency room , ABC alert was called. Please see H and P from Lyssa Allen for full details. Pupils were dilated and fixed bilaterally. CPR was started, she was in V-tach and V-fib, and she was defibrillated with ROSC; was very agitated, received 4 of Ativan, 5 of morphine; and given the agitation, there was difficulty obtaining IV access. IV was placed by Dr. Trent in the ED and a right IJ was attempted, which may have been associated with an iatrogenic injury of the right apical pneumothorax (small), but which required Dr. Ortiz to place a Heimlich valve catheter. She was intubated. EKG showed ST elevations and Dr. Thorpe was consulted, code STEMI was called and at that point the right IJ was placed. She was brought to the clinical lab scientist and a stent was placed for inferior wall myocardial infarction. She notably had prior stents. She had a stent which was placed in the RCA. The patient's course was complicated by the need for Precedex drip in ICU. She was noted to be febrile and her blood cultures eventually grew the Branhamella catarrhalis. She was initially on cefepime and then transitioned to meropenem and vancomycin when she continued to have spiked fevers. Her repeat blood cultures on 05/16/18 have been no growth x4 days. Her sputum culture was normal kenneth, negative Legionella and Strep pneumoniae urinary antigens and her MRSA nares was negative. She was started on beta blockers and DANIEL inhibitors by cardiology team. She was initially placed on Brilinta and aspirin for dual antiplatelet therapy that was then transitioned to Plavix given her noninsurance coverage of he Brilinta. A procalcitonin was checked on 05/20/18 and it was at 1.4. Her vancomycin was stopped and she was transitioned from meropenem to Augmentin for continued coverage for her suspected pneumonia and possible aspiration events during the cardiac arrest and subsequent events. Her BMP was noted to be elevated at 633 on 05/20/18, up from 131 on admission. She was started on Lasix. She was notably very agitated once she was out of the ICU and required frequent Ativan administrations via [facility] protocol. She denied history of seizures. She was seen trying to manipulate her IJ the day prior to discharge and wanted to leave against medical advice. Dr. Isma Castillo of Psychiatry evaluated the patient and she was determined at that point in time not to have capacity to do so. On day of discharge, she had been transitioned to oral antibiotics and with a plan to monitor on those for another overnight to confirm that she was afebrile and hemodynamically stable. She refused and left against medical advice and was able at that time to explain and understand the risks and benefits following versus disregarding said advice. She received medications through the [facility] from the pharmacy including notably her Plavix, aspirin , and Augmentin including other medications and said she was going to the [facility]. Echocardiogram on 05/15/18 demonstrated ejection fraction of 40 % to 45% with abnormal left ventricular diastolic filling observed consistent with impaired relaxation. There was wall motion abnormality in fly-pt-grrjil inferior wall. She had a cardiac catheterization on 05/14/18, which demonstrated an RCA with a critical 95% proximal lesion with resultant Synergy drug-eluting stent. She also had 70% to 75% LAD lesions and 10% distal left main. CT of the chest on 05/18/18, which demonstrated bilateral pleural effusions, greater on the right than on the left, with areas of consolidation in the lung bases with air bronchograms nodular areas noted bilaterally, likely representing areas of pneumonia, biapical upper lobe infiltrates are also noted. Chest x-ray obtained bung dropper on the day of discharge demonstrated persistent but improved consolidation of the right lower lung. She was recommended to follow up with Dr. Thorpe and Dr. Benito. Attempts were made to call the [facility] to also offer services at the [facility] and we will continue to do so. The patient was also encouraged strongly to pursue drug and alcohol addiction therapies and absolutely refused this intervention; her family including her sister and daughter pleaded with her to pursue this as well but ultimately refused. DISCHARGE MEDICATIONS: Include, all of these are new: 1. Augmentin 875 mg p.o. b.i.d. for 10 tabs. 2. Aspirin 81 mg daily. 3. Plavix 75 mg daily. 4. Folic acid 1 mg p.o. daily. 5. Furosemide 40 mg p.o. daily for 5 days. 6. 10 mg p.o. daily. 7. Metoprolol succinate 100 mg p.o. daily. 8. Nicotine patch 14 mg/24 hours. 9. Thiamine 100 mg p.o. daily. DISCHARGE DIET: Heart healthy. FOLLOWUP: Please follow up with Edgar Benito and/or at the [facility] and Dr. Thorpe. TIME SPENT ON DISCHARGE: 60 minutes. [id number]/CPS #: [id number] MTDArlene
== END 2018-05-20 15:20 | disposition left against medical advice (07) | DRG 175 ==
LOC: ED 15:51 → ICU 17:10 → MEDTELE 05-18 21:19
PROVIDERS: ADMIT Internal Medicine; ATTEND Internal Medicine
PROC: 3E043XZ Introduction of Vasopressor into Central Vein, Percutaneous Approach (ICD-10-PCS; 2018-05-14)
PROC: 0BH17EZ Insertion of Endotracheal Airway into Trachea, Via Natural or Artificial Opening (ICD-10-PCS; 2018-05-14)
PROC: 5A2204Z Restoration of Cardiac Rhythm, Single (ICD-10-PCS; 2018-05-14)
PROC: B2111ZZ Fluoroscopy of Multiple Coronary Arteries using Low Osmolar Contrast (ICD-10-PCS; 2018-05-14)
PROC: B2151ZZ Fluoroscopy of Left Heart using Low Osmolar Contrast (ICD-10-PCS; 2018-05-14)
PROC: 4A023N7 Measurement of Cardiac Sampling and Pressure, Left Heart, Percutaneous Approach (ICD-10-PCS; 2018-05-14)
PROC: 027034Z Dilation of Coronary Artery, One Artery with Drug-eluting Intraluminal Device, Percutaneous Approach (ICD-10-PCS; 2018-05-14)
PROC: 06HM33Z Insertion of Infusion Device into Right Femoral Vein, Percutaneous Approach (ICD-10-PCS; 2018-05-14)
PROC: 0W9930Z Drainage of Right Pleural Cavity with Drainage Device, Percutaneous Approach (ICD-10-PCS; 2018-05-14)
PROC: 5A1945Z Respiratory Ventilation, 24-96 Consecutive Hours (ICD-10-PCS; 2018-05-14)
PROC: 05HM33Z Insertion of Infusion Device into Right Internal Jugular Vein, Percutaneous Approach (ICD-10-PCS; principal; 2018-05-14 17:45)
DX: I47.2 Ventricular tachycardia (principal); I21.19 ST elevation (STEMI) myocardial infarction involving other coronary artery of inferior wall; J95.811 Postprocedural pneumothorax; J18.1 Lobar pneumonia, unspecified organism; E87.2 Acidosis; R78.81 Bacteremia; I50.20 Unspecified systolic (congestive) heart failure; I46.2 Cardiac arrest due to underlying cardiac condition; I49.01 Ventricular fibrillation; F11.10 Opioid abuse, uncomplicated; R41.82 Altered mental status, unspecified; I95.9 Hypotension, unspecified; Y84.8 Other medical procedures as the cause of abnormal reaction of the patient, or of later complication, without mention of misadventure at the time of the procedure; Y92.239 Unspecified place in hospital as the place of occurrence of the external cause; E87.6 Hypokalemia; E83.42 Hypomagnesemia; I49.8 Other specified cardiac arrhythmias; F14.10 Cocaine abuse, uncomplicated; E88.09 Other disorders of plasma-protein metabolism, not elsewhere classified; R74.8 Abnormal levels of other serum enzymes; D53.9 Nutritional anemia, unspecified; I25.5 Ischemic cardiomyopathy; E16.2 Hypoglycemia, unspecified; F19.10 Other psychoactive substance abuse, uncomplicated; I25.10 Atherosclerotic heart disease of native coronary artery without angina pectoris; F15.90 Other stimulant use, unspecified, uncomplicated; I11.0 Hypertensive heart disease with heart failure; I25.2 Old myocardial infarction; Z95.5 Presence of coronary angioplasty implant and graft; Z82.49 Family history of ischemic heart disease and other diseases of the circulatory system; Z56.0 Unemployment, unspecified; Z91.19 Patient's noncompliance with other medical treatment and regimen; Z79.82 Long term (current) use of aspirin
CPT/HCPCS: 36415; 36600; 71045; 71250; 80048; 80053; 80061; 80076; 80202; 80307; 80320; 80329; 81003; 81015; 82140; 82375; 82550; 82553; 82607; 82746; 82803; 83036; 83605; 83690; 83735; 83880; 84145; 84443; 84484; 85025; 85027; 85379; 85610; 85730; 86140; 86738; 87040; 87070; 87077; 87205; 87641; 87899; 93005; 93306; 94003; 99285; A9270-GY; C1725; C1769; C1876; C1887; C9606-RC; G0480; G8978-GP-CJ; G8979-GP-CH; J0330; J0461; J0583; J0692; J1644; J1940; J1956; J2060; J2185; J2250; J2270; J2405; J2704; J3010; J3370; J3411; J3475; J3480

== ENCOUNTER 2018-05-27 00:20 | Emergency (ER) | payer OTHER ==
[2018-05-27 00:31] VITALS: BP 118/69
--- OUTSIDE RECORDS SUMMARY | 2018-05-27 00:37 | XMS REPORT ---
:1965 External Reference #:[id number] Author Organization [facility] Address [address] [place] [address] Phone [phone] Care Team Providers Name Role Phone Edgar Benito III, MD Primary Care Physician Unavailable Payers Type Date Identification Numbers Payment Provider Subscriber Commercial Policy Number: [id number] Mathieu Desai Group Number: [id number] [address] PayID: [id number] [place] [address] Problems Description No Information Social History Type Date Description Comments Marital Status Lives With Alone Occupation Unemployed ETOH Use Occasionally consumes alcohol Smoking Heavy tobacco smoker (more 1 ppd now, 1.5ppd max. than 10 cigarettes/day) Began age 10 Exercise Type/Frequency Exercises regularly walks daily Allergies, Adverse Reactions, Alerts Date Description Reaction Status Severity Comments 09/30/2017 NKDA active Medications Medication Date Status Form Strength Qnty SIG Indications Ordering Provider No Active 09/30/2017 Active Unknown Medications Vital Signs Date Vital Result Comment 09/30/2017 Height 63 inches 5'3" Weight 130.00 lb Heart Rate 96 /min BP Systolic 140 mmHg BP Diastolic 83 mmHg Body Temperature 98.3 F O2 % BldC Oximetry 97 % BMI (Body Mass Index) 23.0 kg/m2 Results Description No Information Procedures Date CPT Code Description Status 05/14/2018 86537 Tube,Thoracostomy,Incl Water S Completed Encounters Type Date Location Provider CPT E/M Dx Office Visit 05/17/2018 [facility]ooq 94759 J95.811 7:00a Of Jeanette Guo NP Office Visit 05/15/2018 [facility] Trip Ortiz, 51383 J95.811 7:00a Of Jeanette Arevalo Office Visit 09/30/2017 [facility] Edgar Benito, [address]7585 I25.10 11:00a - Maia Arevalo Z13.220 R03.0 Z11.59 Z01.419 Z12.11 Plan of Care 09/30/2017 - Edgar Benito M.D.I25.10 Athscl heart disease of [place] coronary artery w/o ang pctrsComments:(+) long cardiac hx with CAD, stentings, ? SBE. No cardiac c/o, but no recent rechecks and pt off all routine meds. Recheck labs and send for outside records. Resumption of Rx with lipid Rx, ASA, beta blockers all indicated after labs reviewed. Smoking cessation strongly advised and some cessation techniques discussedFollow up:2 weeks to review labs , BPs and resume drug RxZ13.220 Encounter for screening for lipoid mrtamvoxrG62.0 Elevated blood-pressure reading, w/o diagnosis of htnComments: Check labs; begin home BP checks and record for review. Smoking cessation and salt avoidance advised. Continue regular aerobic twqtonmsT26.59 Encounter for screening for other viral ftxphykhO29.419 Encntr for halftone operator exam (general) (routine ) w/o abn findingsComments:Pt due for a routine DIRECTOR OF TAX SERVICES examZ12.11 Encounter for screening for malignant neoplasm of colonComments:Pt due for a colon exam
--- OUTSIDE RECORDS SUMMARY | 2018-05-27 00:37 | XMS REPORT ---
:1965 External Reference #:[id number] Author Organization [employer] Address [address] [place] [address] Phone [phone] Care Team Providers Name Role Phone Edgar Benito III, MD Primary Care Physician Unavailable Payers Type Date Identification Numbers Payment Provider Subscriber Commercial Policy Number: [id number] Mathieu Desai Group Number: [id number] [address] PayID: [id number] [place] [address] Problems Description No Information Social History Type [...] 23.0 kg/m2 Results Description No Information Procedures Description No Information Encounters Type Date Location Provider CPT E/M Dx Office Visit 09/30/2017 [facility] Edgar Benito, [address] I25.10 11:00a - Maia Arevalo Z13.220 R03.0 Z11.59 Z01.419 Z12.11 Plan of Care 09/30/2017 - Edgar Benito M.D.I25.10 Athscl heart disease of [place] coronary artery w/o ang pctrsComments:(+) long cardiac [...] drug RxZ13.220 Encounter for screening for lipoid pgqxkvfsoT80.0 Elevated blood-pressure reading, w/o diagnosis of htnComments: Check labs; begin home BP checks and record for review. Smoking cessation and salt avoidance advised. Continue regular aerobic moevhqpjO57.59 Encounter for screening for other viral bbeswswcO46.419 Encntr for head of stock exam (general) (routine ) w/o abn findingsComments:Pt due for a routine TUTORING CLINICIAN examZ12.11 Encounter for screening for malignant neoplasm of colonComments:Pt due for a colon exam
== END 2018-05-27 00:54 | disposition left against medical advice (07) ==
LOC: ED 00:20
DX: R20.0 Anesthesia of skin (principal); R20.2 Paresthesia of skin; Z53.21 Procedure and treatment not carried out due to patient leaving prior to being seen by health care provider

== ENCOUNTER 2018-10-01 06:33 | Inpatient (IN) | payer OTHER ==
[2018-10-01] MEDS ORDERED: NS 0.9% 1000 ML** 1,000 ML IV ONE (06:38)
[2018-10-01] MEDS ORDERED: Acetaminophen TAB* 325 MG PO ONE (06:46)
[2018-10-01] MEDS ORDERED: NS 0.9% 1000 ML** 2,000 ML IV ONE (06:46)
--- NOTE | 2018-10-01 06:48 | ED ---
HPI Chest Pain - HPI Summary HPI Summary: This patient is a 53 year old female with a chief complaint of chest pain 90 minutes ago. She reports the pain at the mid-sternum radiating to the left shoulder. She believes she has pleuritic chest pain for a month due to pneumonia. The patient reports dyspnea and nausea. The patient smokes cigarettes and has a Hx of substance abuse. She has a Hx of multiple MIs and has multiple stents placed. She has a Hx of cardiac arrest. - History of Current Complaint Chief Complaint: EDChestPainROMI Time Seen by Provider: 10/01/18 06:37 Hx Obtained From: Patient Timing: Constant, Lasting Hours Chest Pain Location: Mid Sternal Chest Pain Radiates: Yes Chest Pain Radiates To:: Arm - left Character: Dyspnea at Rest Associated Signs and Symptoms: Positive: Nausea - Additional Pertinent History Primary Care Physician: MELIDA - Allergy/Home Medications Allergies/Adverse Reactions: Allergies Allergy/AdvReac Type Severity Reaction Status Date / Time No Known Allergies Allergy Verified 05/27/18 00:31 PMH/Surg Hx/FS Hx/Imm Hx Endocrine/Hematology History: Denies: Hx Diabetes Cardiovascular History: Reports: Hx Cardiac Arrest, Hx Hypertension, Hx Myocardial Infarction - 2 Sensory History: Denies: Hx Contacts or Glasses, Hx Hearing Aid Opthamlomology History: Denies: Hx Contacts or Glasses Psychiatric History: Reports: Hx Substance Abuse - heroin Infectious Disease History: Denies: Traveled Outside the [place] in Last 30 Days - Family History Known Family History: Negative: Cardiac Disease, Hypertension - Social History Alcohol Use: Unsure of amount Substance Use Type: Reports: Cocaine, Other Substance Use Comment - Amount & Last Used: + for amphetamines, admits to injecting Suboxone that is not her own Smoking Status (MU): Current Every Day Smoker Review of Systems Positive: Chest Pain Positive: Shortness Of Breath Positive: Nausea All Other Systems Reviewed And Are Negative: Yes Physical Exam - Summary Physical Exam Summary: Appearance: Well-appearing, Well-nourished, lying in bed comfortably Skin: Warm, dry, no obvious rash Eyes: sclera anicteric, no conjunctival pallor ENT: mucous membranes moist, pharynx appears normal Neck: Supple, nontender Respiratory: Clear to auscultation, tachypnic. Cardiovascular: Normal S1, S2. No murmurs. Tachycardic. Abdomen: Soft, nontender, normal active bowel sounds present Musculoskeletal: Normal, Strength/ROM Intact Neurological: A&Ox3, awake and alert, mentation is normal, speech is fluent and appropriate Psychiatric: affect is normal, does not appear anxious or depressed Triage Information Reviewed: Yes Vital Signs Reviewed: Yes Diagnostics - Laboratory Result Diagrams: 10/04/18 06:37 10/04/18 06:37 Lab Statement: Any lab studies that have been ordered have been reviewed, and results considered in the medical decision making process. - EKG 0642 Cardiac Rate: Tachycardia EKG Rhythm: Sinus Tachycardia - 119 BPM EKG Comparison: No Significant Change Summary of EKG Findings: No acute ischemic changes. Chest Pain Course/Dx - Course Assessment/Plan: This patient is a 53 year old female with a chief complaint of chest pain 90 minutes ago. Patient will be signed out to Dr. Alcaraz pending cardiopulmonary workup at 0700. - Diagnoses Provider Diagnoses: Chest pain, Sepsis Discharge - Sign-Out/Discharge Documenting (check all that apply): Sign-Out Patient Signing out patient TO: Casper Alcaraz Patient Received Moderate/Deep Sedation with Procedure: No - Discharge Plan Condition: Fair Disposition: ADMITTED TO [facility] - Billing Disposition and Condition Condition: FAIR Disposition: Admitted to [facility] - Attestation Statements Document Initiated by Lo: Yes Documenting Scribe: Zeb Mckee Provider For Whom Lo is Documenting (Include Credential): Ramon Cruz MD Scribe Attestation: Zeb Hahn, scribed for Ramon Cruz MD on 10/04/18 at 1923. Scribe Documentation Reviewed: Yes Provider Attestation: The documentation as recorded by the Zeb leo accurately reflects the service I personally performed and the decisions made by me, Ramon Cruz MD Status of Scribe Document: Viewed
[2018-10-01 07:15] LABS: Hematocrit 36 % (33-41); Hemoglobin 11.8 g/dL (12.0-16.0); Mean Corpuscular HGB Conc 33 g/dL (31-36); Mean Corpuscular Hemoglobin 31 pg (27-31); Mean Corpuscular Volume 94 fL (80-97); Mean Platelet Volume 8.2 fL (7.4-10.4); Platelet Count 192 10^3/uL (150-450); Red Blood Count 3.81 10^6 /uL (3.70-4.87); Red Cell Distribution Width 13 % (10.5-15); White Blood Count 17.2 10^3/uL (3.5-10.8)
[2018-10-01 07:31] LABS: ALT 33 U/L (7-52); AST 44 U/L (13-39); Albumin 3.4 g/dL (3.2-5.2); Albumin/Globulin Ratio 0.9 (1-3); Alkaline Phosphatase 57 U/L (34-104); Anion Gap 8 mmol/L (2-11); BUN/Creatinine Ratio 17.3 (8-20); Blood Urea Nitrogen 13 mg/dL (6-24); CO2 Carbon Dioxide 23 mmol/L (22-32); Calcium 8.5 mg/dL (8.6-10.3); Chloride 102 mmol/L (101-111); EGFR African American 97.8 (>60); EGFR Non-African American 80.8 (>60); Globulin 3.7 g/dL (2-4); Glucose 97 mg/dL (70-100); Potassium 3.4 mmol/L (3.5-5.0); Sodium 133 mmol/L (135-145); Total Protein 7.1 g/dL (6.4-8.9)
[2018-10-01 07:38] LABS: HCG Pregnancy < 0.60 mIU/mL
[2018-10-01 07:48] LABS: Troponin I 0.04 ng/mL (<0.04)
[2018-10-01] MEDS ORDERED: Vancomycin(*) 750 MG in NS 0.9% 250 ML* 250 ML IVPB ONE (07:56)
[2018-10-01] MEDS ORDERED: Piperacillin/Tazobac ADVAN(*) 3.375 GM in NS 0.9% 100 ML* 100 ML IVPB ONE (07:56)
--- NOTE | 2018-10-01 07:59 | ED ---
Progress - Progress Note Progress Note: Patient was signed out from Dr. Cruz upon shift change pending XR, lab results , and disposition. 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 The patient has a history of endocarditis. PHYSICAL EXAM Appearance: Ill appearing. No pain distress Skin: warm, dry, reflects adequate perfusion. No splinter hemorrhages or janeway lesions Head/face: normal Eyes: EOMI, NATACHA ENT: mucous membranes moist Neck: supple, non-tender Respiratory: CTA, breath sounds present Cardiovascular: Tricuspid murmur, tachycardic, pulses symmetrical Abdomen: non-tender, soft Bowel Sounds: present Musculoskeletal: normal, strength/ROM intact Neuro: normal, sensory motor intact, A&Ox3 - EKG/XRAY/CT XRAY: chest Xray Comments: CXR reveals, per ED physician, left basilar infiltrate. Re-Evaluation - Re-Evaluation First Eval Re-Evaluation Time: 07:53 Change: Unchanged Comment: Upon physical exam: No splinter hemorrhages or janeway lesions. Tricuspid murmur. Tachycardia. Course/Dx - Course Course Of Treatment: Nurse's notes reviewed. Patient with history of endocarditis and also VT/VF arrest who presents with chest discomfort and harsh cough. She has a fever and SIRS criteria. There is a murmur heard best at the tricuspid. Blood cultures were drawn and broad-spectrum antibiotics initiated. Heart rate is coming down. Troponin was elevated. Aspirin given. Hospitalist was contacted and will admit. No acute ST changes. - Diagnoses Provider Diagnoses: Chest pain, Sepsis - Provider Notifications Discussed Care Of Patient With: Bertha Lujan Time Discussed With Above Provider: 07:56 Instructed by Provider To: Other - Consult with Dr. Lujan (hospitalist) at 0756. She agrees to admit the patient for further evaluation. - Critical Care Time Critical Care Time: 30-74 min - CCT is EXCLUSIVE of separately billable procedures Discharge - Sign-Out/Discharge Documenting (check all that apply): Patient Departure - Admit to [facility], Receiving Sign-Out Receiving patient FROM: Ramon Cruz - Upon shift change pending CXR, lab results, and disposition Patient Received Moderate/Deep Sedation with Procedure: No - Discharge Plan Condition: Fair Disposition: ADMITTED TO [facility] Referrals: No Primary Care Phys,NOPCP [Primary Care Provider] - - Billing Disposition and Condition Condition: FAIR Disposition: Admitted to [facility] - Attestation Statements Document Initiated by Scribe: Yes Documenting Scribe: Rachel Reyes Provider For Whom Scribe is Documenting (Include Credential): Dr. Casper Alcaraz MD Scribe Attestation: IRachel, scribed for Dr. Casper Alcaraz MD on 10/01/18 at 0823. Scribe Documentation Reviewed: Yes Provider Attestation: The documentation as recorded by the Rachel leo accurately reflects the service I personally performed and the decisions made by me, Dr. Casper Alcaraz MD Status of Scribe Document: Viewed
[2018-10-01 08:17] LABS: Neutrophil % 69 %
[2018-10-01 08:18] LABS: ABS Neutrophils 15.7 10^3/ul (1.5-7.7); Immature Granulocytes 22 % (0-9); Lymphocytes % 3 %; Metamyelocytes % 8 % (0-2); Monocytes % 6 %
[2018-10-01 08:41] LABS: C Reactive Protein 20.95 mg/L (<8.01)
[2018-10-01 09:12] LABS: Influenza A Molecular NEGATIVE (Negative); Influenza B Molecular NEGATIVE (Negative)
[2018-10-01] MEDS ORDERED: ED Azithromycn 500 mg/250 ml 500 MG/250 ML PREMIX.SET IVPB ONE (09:30)
[2018-10-01] MEDS ORDERED: Vancomycin(*) 750 MG in NS 0.9% 250 ML* 250 ML IVPB SCH (09:31)
[2018-10-01] MEDS ORDERED: Potassium Chlor TAB* 20 MEQ TAB.ER PO ONE (09:58)
[2018-10-01] MEDS ORDERED: Vancomycin per Pharmacy* NOTE FOLLOW UP SCH (10:00)
[2018-10-01 10:26] LABS: C Reactive Protein 39.68 mg/L (<8.01)
[2018-10-01 10:38] LABS: Barbiturates Urine Screen None Detected (None Detect); Benzodiazepine Urine Screen None Detected (None Detect); Urine Cannabinoids Screen None Detected (None Detect)
[2018-10-01 10:41] LABS: Troponin I 0.04 ng/mL (<0.04)
[2018-10-01] MEDS ORDERED: AZITHROMYCIN IVPB ONE (11:15)
[2018-10-01] MEDS: Aspirin EC TAB* 81 MG TAB.EC PO SCH (11:18)
[2018-10-01] MEDS: Cefepime 1 GM in Dextrose(*) 1 GM/50 ML BAG IV SCH ×2 (11:19→23:32)
[2018-10-01] MEDS: Metoprolol Tartrate TAB* 25 MG PO SCH ×2 (11:19→20:16)
[2018-10-01] MEDS: PROCHLORPERAZINE INJ 5 MG/ML 2 ML VIAL IV PRN (12:23)
[2018-10-01] MEDS: Lactated Ringers 1000 ML Bag* 1,000 ML IV SCH (12:36)
--- NOTE | 2018-10-01 13:16 | HP ---
HISTORY AND PHYSICAL: DATE OF ADMISSION: 10/01/18 TIME OF EVALUATION: 9:10 a.m. PRIMARY CARE PROVIDER: The patient has no primary care provider. CHIEF COMPLAINT: "I don't feel well." HISTORY OF PRESENT ILLNESS: Ms. Desai is a 53-year-old lady with a past medical history of polysubs tance abuse, cardiac arrest (V-tach) in April 2018, ST- elevation VA status post stent, pneumothora x, Branhamella catarrhalis bacteremia, pneumonia, systolic heart failure, who presents to the emergen cy room with complaints of not feeling well. The patient had a complicated hospital stay in April 2018. She was homeless at that time, had used Suboxone, methamphetamine, and was found unresponsive. She was found to be in cardiac arrest and hoyt d alternation between V-tach and V-fib. She was defibrillated with return of a spontaneous circulati on. Her EKG showed ST- elevation VA and was found to have an inferior wall myocardial infarction. S he had prior stents and at that point a stent was placed to the RCA. Her hospital stay was complicat ed by Branhamella catarrhalis bacteremia and withdrawal, requiring Precedex. The patient had improve ment of her symptoms and on 05/20/18 she left against medical advise. She states she was initially living at the [facility], but she states that now she is karuna ing at the [facility] for the past month. She continues to use drugs. She states that she injects methamphetamine, inhales cocaine, and also u ses Suboxone that she buys on the streets. She has been to [facility] before, but she does not fol low. She states that yesterday she injected methamphetamine to her left arm and when she did it, "it did n ot feel weird." After that, she started to have malaise, body aches, cough with greenish sputum, and this morning she woke up with left-sided chest pain radiating to her shoulder. She presented to the emergency room for further evaluation and she was found to have a low-grade fever, tachycardia, and the emergency room provider was also concerned as the patient had a murmur on auscultation. The hosp italist service was consulted for admission. PAST MEDICAL HISTORY: 1. Coronary artery disease, status post prior stents, and cardiac arrest, V-tach, V-fib in the [facility] of an ST-elevation VA in April 2018 status post a stent to the RCA. The patient is not complian t with her medications and has not followed up. 2. Polysubstance abuse. 3. Right pneumothorax in April 2018 in the setting of right IJ placement. 4. Branhamella catarrhalis bacteremia. 5. Pneumonia. 6. Systolic congestive heart failure. MEDICATIONS: The patient is not taking any medications at this time. ALLERGIES: No known drug allergies. FAMILY HISTORY: Hypertension. SOCIAL HISTORY: The patient continues to inject methamphetamines, inhale cocaine, and she uses Subox one that she buys on the street. She was living at the [facility], but she is now back in the [facility]. Surrogate decision maker is her daughter, Teagan Desai; phone number is [phone]. REVIEW OF SYSTEM: A 14-point review of systems was performed and all the pertinent negative and posi tive findings are in the HPI. PHYSICAL EXAMINATION GENERAL: The patient is a middle-aged lady that appears older than stated age, lying in the ED stret latoya in no acute distress, but she appears to be uncomfortable. VITAL SIGNS: Temperature 100, heart rate 102, respiratory rate 18, oxygen saturation 100% on 2 L alessandra al cannula, blood pressure is 132/85. HEENT: Pupils are equal, moist mucous membranes. Dentition is very poor with multiple broken and ro tten teeth. CHEST: Breath sounds bilaterally with no added sounds, but diminished in bases. CVS: Normal S1 and S2. Regular rate and rhythm with a systolic murmur. ABDOMEN: Soft. Bowel sounds are present. EXTREMITIES: The patient has no edema, but she has multiple areas of needle use with induration in b oth , but especially on the left side. NEUROLOGIC: She is alert and oriented x3, able to move all 4 extremities. LABORATORY AND IMAGING DATA: The patient had a CBC that showed a WBC of 7.2, hemoglobin of 11.8, he matocrit of 36, platelets of 192 with 69% neutrophils, 14% bands. Chemistry showed a sodium of 133, potassium 3.4, chloride of 102, bicarb of 23, BUN 13, creatinine of 0.74. LFTs are normal except for an AST of 44, troponin of 0.04, HCG is negative. Urinalysis is not yet available. Influenza A and B were negative. EKG done on 10/01/18 shows sinus tachycardia at 119 beats per minute with Q-waves in II, III, and aVF . Her ST depressions from April 2018 are not present anymore. There are no acute ischemic changes. Chest x-ray was read as no acute cardiac or bony process, but to my read the patient has a left lower lobe infiltrate. ASSESSMENT AND PLAN: Mrs. Desai is a 53-year-old lady with a past medical history of coronary arter y disease, cardiac arrest (ventricular tachycardia, ventricular fibrillation) in April 2018 in the setting of ST-elevation myocardial infarction, polysubstance abuse, hypertension, who presented to [facility] emergency room with complaints of malaise and cough, found to meet sepsis criteria with pneumonia a s a likely source, but also concerns for acute endocarditis. 1. Sepsis. The patient meets sepsis criteria with tachycardia, leukocytosis, bandemia. The source at this time appears to be pneumonia, but the patient does have concerns for endocarditis with her mu rmur and IV drug use. 2. Pneumonia. This could be community-acquired pneumonia, but also aspiration as the patient is an IV drug user. Blood cultures already sent. Sputum culture is ordered, and I am going to check a Leg ionella and pneumococcal antigen. On her prior admission, she had Branhamella catarrhalis pneumonia with bacteremia. I am going to check a CT of the chest without contrast for better visualization of her infiltrate. 3. New systolic murmur. I am concerned with the possibility of endocarditis as the patient has a ne w systolic murmur. Her echo in April last year had an ejection fraction of 40% to 45% with mild MR and trace to mild TR. She will have a transthoracic echocardiogram and depending on her clinical co urse and blood culture results, she will also have a transesophageal echocardiogram. 4. Polysubstance abuse. The patient will be monitored for signs of withdrawal and on discharge we w ill try to connect her with [facility] once again. 5. Coronary artery disease. The patient did not follow up after her discharge in April and she hoyt s not been compliant with medications. I believe her chest pain at this point is most likely seconda ry to her pneumonia and the arm pain secondary to injecting methamphetamine on that arm, but she had stents to her RCA, but still had residual disease to her LAD. I am going to start her on aspirin, me toprolol, and atorvastatin for now. I am going to hold off on Plavix as with her new murmur and conc [place] for endocarditis she may need surgery in the near future, so I am not going to start Plavix yet. She will have serial troponins to rule out acute coronary syndrome. Her troponin is mildly elevated at this time and this could be just demand ischemia in the setting of sepsis and noncompliance with medications. 6. Hypertension. It is controlled at this time and I am going to add metoprolol as described above. 7. Hypokalemia. We will replete. 8. DVT prophylaxis. The patient has a score of 2 on the DVT Prophylaxis Assessment Guide and she wi ll be started on subcutaneous heparin. 9. Code status is full. TIME SPENT: Approximately 60 to 65 minutes were spent with patient interview, medical records review , physical examination to complete this admission; more than half this time was spent [id number] wi th the patient in coordination of care. [id number]/[facility] #: [id number]
[2018-10-01 13:44] LABS: Urine Appearance Cloudy; Urine Bacteria Absent (Absent); Urine Bilirubin Negative (Negative); Urine Blood 1+ (Negative); Urine Color Yellow; Urine Glucose Negative (Negative); Urine Ketones Negative (Negative); Urine Nitrite Negative (Negative); Urine Protein Negative (Negative); Urine Red Blood Cell 1+(3-5/hpf) (Absent); Urine Specific Gravity 1.012 (1.010-1.030); Urine Squamous Epithelial Cell Present (Absent); Urine Urobilinogen Negative (Negative); Urine White Blood Cell 1+(6-10/hpf) (Absent)
[2018-10-01] MEDS: Heparin VIAL(*) 5000 UNITS/ML VIAL (FIVE THOUSAND) SUBCUT SCH ×2 (13:45→20:16)
[2018-10-01 14:22] LABS: Troponin I 0.04 ng/mL (<0.04)
[2018-10-01] MEDS: Atorvastatin* 40 MG TAB PO SCH (16:25)
[2018-10-01] MEDS: Vancomycin(*) 1,000 MG in NS 0.9% 250 ML* 250 ML IVPB SCH (16:27)
[2018-10-01] MEDS: Acetaminophen TAB* 325 MG PO PRN (20:16)
[2018-10-02] MEDS: Vancomycin(*) 1,000 MG in NS 0.9% 250 ML* 250 ML IVPB SCH ×3 (00:08→16:14)
[2018-10-02] MEDS: Ibuprofen TAB* 600 MG PO PRN ×2 (01:52→21:14)
[2018-10-02] MEDS: Acetaminophen TAB* 325 MG PO PRN (04:52)
[2018-10-02] MEDS: Heparin VIAL(*) 5000 UNITS/ML VIAL (FIVE THOUSAND) SUBCUT SCH ×3 (04:57→21:15)
[2018-10-02] MEDS ORDERED: Perflutren Lipid Microsphere* 3 ML VIAL ONE (07:25)
--- NOTE | 2018-10-02 08:51 | PN ---
Subjective Date of Service: 10/02/18 Interval History: HD # 2 on 10/02 53F PMH PSA (IVDU meth, cocaine, buprenorphine/OUD), CAD w/ hx of cardiac arrest 05/05, STEMI s/p BMS to RCA, HFrEF at that time, prolonged hospital stay at that time c/b withdrawal and bacteremia who ultimately left AMA and returned to homelessness, returns septic, with PNA RML and new heart murmur. Overnight, no acute events, VSS, + UOP and + BM Labs 10/01 reviewed: CBC: Leukocytosis with bandemia, CMP K 3.4, trop level at 0.04, CRP elevated, +Amph/cocaine. CXR: RML infiltrate This morning seen with supportive daughter at bedside. Pt reports feeling tired still and weak, has chronic low back pain but no new pain. Discussed echo results which she was encouraged by (normalized EF, no gross valvular path), denies new CP, MOELLER, GI or issues, has cough. We discuss pain control she was using low dose suboxone strips melted and injected (to keep herself from using heroin) and has mild withdrawal each time she uses, reports PO suboxone makes her nauseous, though we discuss trialling anti emetic first, which she is willing. Think she is using 2 and 4mg strips. Also requests nicotine. Slightly ambivelent about maintaining sobriety from amphetamines and cocaine, though would like to stop using heroin altogether. Objective Active Medications: Acetaminophen (Tylenol Tab*) 650 mg PO Q6H PRN PRN Reason: pain/fever Last Admin: 10/02/18 04:52 Dose: 650 mg Aspirin (Aspirin Ec Tab*) 81 mg PO DAILY [facility] Last Admin: 10/01/18 11:18 Dose: 81 mg Atorvastatin Calcium (Lipitor*) 40 mg PO 1700 [facility] Last Admin: 10/01/18 16:25 Dose: 40 mg Heparin Sodium (Porcine) (Heparin Vial(*)) 5,000 units SUBCUT Q8HR [facility] Last Admin: 10/02/18 04:57 Dose: 5,000 units Lactated Ringer's (Lactated Ringers 1000 Ml Bag*) 1,000 mls @ 100 mls/hr IV PER RATE [facility] Last Admin: 10/01/18 12:36 Dose: 100 mls/hr Azithromycin 500 mg/ Sodium (Chloride) 250 mls @ 250 mls/hr IVPB Q24H [facility] Cefepime HCl (Maxipime 1 Gm In Dextrose Duplex (*)) 1 gm in 50 mls @ 100 mls/ hr IV Q12H [facility] Last Admin: 10/01/18 23:32 Dose: 100 mls/hr Vancomycin HCl 1,000 mg/ (Sodium Chloride) 250 mls @ 166.667 mls/hr IVPB Q8H [facility] Last Admin: 10/02/18 08:12 Dose: 166.667 mls/hr Ibuprofen (Motrin Tab*) 600 mg PO Q6H PRN PRN Reason: PAIN Last Admin: 10/02/18 01:52 Dose: 600 mg Metoprolol Tartrate (Lopressor Tab*) 25 mg PO BID [facility] Last Admin: 10/01/18 20:16 Dose: 25 mg Pharmacy Consult (Vancomycin Per Pharmacy*) 1 note FOLLOW UP .VANC PER PHARMACY [facility] Pharmacy Profile Note (Vancomycin Trough Check) 1 note FOLLOW UP ONCE ONE Stop: 10/03/18 07:31 Potassium Chloride (Klor Con Er Tab*) 20 meq PO DAILY [facility] Prochlorperazine Edisylate (Compazine Inj*) 5 mg IV Q6H PRN PRN Reason: NAUSEA/VOMITING Last Admin: 10/01/18 12:23 Dose: 5 mg Vital Signs - 8 hr 10/02/18 10/02/18 03:54 07:20 Temperature 97.6 F 96.9 F Pulse Rate 63 61 Respiratory 16 16 Rate Blood Pressure 122/70 130/67 (mmHg) O2 Sat by Pulse 98 100 Oximetry Oxygen Devices in Use Now: None Appearance: Thin tired appearing woman in bed, pleasant Ears/Nose/Mouth/Throat: - - Poor dentition, MMM Neck: NL Appearance and Movements; NL JVP Respiratory: Symmetrical Chest Expansion and Respiratory Effort, Clear to Percussion, - - Crackles to blt bases Cardiovascular: RRR, - - Soft SHAMEKA RUSB Abdominal: NL Sounds; No Tenderness; No Distention, No Hepatosplenomegaly Lymphatic: No Cervical Adenopathy Skin: No Rash or Ulcers Neurological: Alert and Oriented x 3 Lines/Tubes/Other Access: Clean, Dry and Intact Peripheral IV Result Diagrams: 10/01/18 07:03 10/01/18 07:03 Microbiology and Other Data: Microbiology 10/01/18 08:29 Aerobic Blood Culture - Preliminary Blood Venous No Growth Day 1 Anaerobic Blood Culture - Preliminary No Growth Day 1 10/01/18 13:25 Legionella Urinary Antigen - Final Urine Negative Legionella Antigen Streptococcus pneumoniae Ag Screen - Final Negative S. pneumo Antigen 10/01/18 08:46 Influenza Types A,B Antigen - Final Nasal Specimen received for Influenza A/B Molecular testing Diagnostic Imaging: Echo: EF 50-55% trace MR, no TR, no /AI, no veg seen Assess/Plan/Problems-Billing Assessment: 53F PMH PSA (IVDU meth, cocaine, buprenorphine/OUD), CAD w/ hx of cardiac arrest 05/05, STEMI s/p BMS to RCA, HFrEF, prolonged hospital stay at that time c/b withdrawal and bacteremia who ultimately left AMA and returned to homelessness, returns septic, with PNA and ? new heart murmur. - Patient Problems (1) Sepsis Current Visit: Yes Status: Acute Comment: - Leukocytosis/bands, tachycardia , BP stable, low grade fever on presentation, now resolved - Source likely PNA/possible endocarditis - Remains on LR @100cc/hr, can be d/c now as pt is PO - On broad spectrum while culture data pending. (2) Pneumonia involving right lung Current Visit: Yes Status: Acute Code(s): J18.9 - PNEUMONIA, UNSPECIFIED ORGANISM SNOMED Code(s): 705544094 Comment: - RML PNA on CT Scan - Concern for aspiration vs CAP - Continue Cefipime and Vanco for now, currently not covering for anaerobes, sputum cx pending, Day 2/__ of abx on 10/02 - Urine antigens sent (3) Heart murmur, systolic Current Visit: Yes Status: Acute Code(s): R01.1 - CARDIAC MURMUR, UNSPECIFIED SNOMED Code(s): 33640287 Comment: - In setting of hx of arrest and STEMI in 05/05, as well as ongoing IVDU - TTE shows no new valvular path and improved EF - Await final results on blood cx, cardiology to hold on consulting for now, if blood cx return positive would JJ (4) CAD (coronary artery disease) Current Visit: No Status: Acute Code(s): I25.10 - ATHSCL HEART DISEASE OF [place] CORONARY ARTERY W/O ANG PCTRS SNOMED Code(s): 35593191 Comment: - EKG with now e/o new STD, Trop 0.04, not rising, with no active CP - s/p BMS to RCA 05/05 - Continue aspirin, BB, statin, no longer on DAPT (5) Polysubstance abuse Current Visit: No Status: Acute Code(s): F19.10 - OTHER PSYCHOACTIVE SUBSTANCE ABUSE, UNCOMPLICATED SNOMED Code(s): 557802400 Comment: - Offer BID Buprenorphine 4-2, PRNS (atarax) for comfort, consider mario or clonidine if neeed - Social work consult, she is ambivelent about inpatient rehabilitation - Daughter supportive and in recovery. (6) DVT prophylaxis Current Visit: Yes Status: Acute Code(s): ERM7495 - SNOMED Code(s): 423741702 Comment: - SQ (7) Full code status Current Visit: Yes Status: Acute Code(s): Z78.9 - OTHER SPECIFIED HEALTH STATUS SNOMED Code(s): 807970597 Status and Disposition: Inpatient, would like to see neg blood cultures x 72 hours given high risk, furthermore social work to assist in safe dispo
[2018-10-02] MEDS: Aspirin EC TAB* 81 MG TAB.EC PO SCH (10:11)
[2018-10-02] MEDS: Potassium Chlor TAB* 20 MEQ TAB.ER PO SCH (10:11)
[2018-10-02] MEDS: Metoprolol Tartrate TAB* 25 MG PO SCH ×2 (10:11→21:14)
[2018-10-02] MEDS: Azithromycin IV(*) 500 MG in NS 0.9% 250 ML* 250 ML IVPB SCH (10:17)
[2018-10-02] MEDS: PROCHLORPERAZINE INJ 5 MG/ML 2 ML VIAL IV PRN (10:52)
--- NOTE | 2018-10-02 11:52 | ECHO ---
Patient: MIKE SELF [facility] Rec#: [id number] : 1965 Date: 10/02/2018 Age: 53y Height: 160 cm / 63.0 in Weight: 54 kg / 119.0 lbs Sex: F BSA: 1.55 Room#: 439 Admit Date#: 10/01/2018 Type: Inpatient Referring: Bertha Leon MD Reading: Umair Reyes MD Plate Glass Polisher: Marina Evans RDCS,RDMS Transthoracic Echocardiogram Indication: Murmur BP: 122/70 HR: 60 Rhythm: NSR Findings History: CAD, MIs, PCI, CHF, polysubstance abuse Technical Comments: The study quality is good. Left Ventricle: The left ventricular chamber size is normal. There is no left ventricular hypertrophy. Global left ventricular wall motion and contractility are within normal limits. Left ventricular systolic function is at the lower limits of normal. The estimated ejection fraction is 50-55%. Normal left ventricular diastolic filling is observed. Left Atrium: The left atrium is mildly dilated. Right Ventricle: The right ventricular chamber size and systolic function are within normal limits. Right Atrium: The right atrial cavity size is normal. Aortic Valve: The aortic valve is trileaflet. Systolic excursion of the aortic valve is normal. There is no evidence of aortic regurgitation. There is no evidence of aortic stenosis. There is no aortic vegetation present. Mitral Valve: The mitral valve leaflets are mildly thickened. There is a trace of mitral regurgitation. There is no evidence of mitral stenosis. No vegetation is observed on the mitral valve. Tricuspid Valve: The tricuspid valve leaflets are normal. There is trace tricuspid regurgitation. Unable to estimate the right ventricular systolic pressure. No vegetation is observed on the tricuspid valve. Pulmonic Valve: The pulmonic valve appears normal. There is no evidence of pulmonic regurgitation. No vegetation is observed on the pulmonic valve. Pericardium: There is no significant pericardial effusion. Aorta: The aortic root appears normal. There is no dilatation of the aortic arch. Pulmonary Artery: The main pulmonary artery is not well visualized. Venous: The inferior vena cava appears normal in size. There is less than 50% respiratory change in the inferior vena cava dimension. Conclusions There is no left ventricular hypertrophy. Global left ventricular wall motion and contractility are within normal limits. Left ventricular systolic function is at the lower limits of normal. The estimated ejection fraction is 50-55%. The right ventricular chamber size and systolic function are within normal limits. There is no evidence of aortic stenosis. There is no aortic vegetation present. There is a trace of mitral regurgitation. No vegetation is observed on the mitral valve. There is trace tricuspid regurgitation. Unable to estimate the right ventricular systolic pressure. No vegetation is observed on the tricuspid valve. There is no significant pericardial effusion. Measurements Name Value Normal Range RVIDd (AP) 2D 2.7 cm (0.9 - 2.6) RVDdMajor (2D) 2.4 cm (2.2 - 4.4) RAd ISD 4CH 4.7 cm (3.4 - 4.9) RA (A4C)W 3.5 cm (2.9 - 4.6) IVSd (2D) 0.9 cm (0.6 - 1) LVPWd (2D) 0.9 cm (0.6 - 1) LVIDd (2D) 3.9 cm (3.6 - 5.4) LVIDs (2D) 3.2 cm - LV FS (2D) 18 % (25 - 45) Aortic Annulus 2.2 cm (1.4 - 2.6) Ao root diameter (2D) 2.8 cm (2.1 - 3.5) Ascending Ao 2.9 cm (2.1 - 3.4) Aortic arch 2.2 cm (1.8 - 3.4) LA dimension (AP) 2D 3.8 cm (2.3 - 3.8) LAd ISD 4CH 5.5 cm (2.9 - 5.3) LA ISD 4CH W 4.4 cm (2.5 - 4.5) Name Value Normal Range LA ESV BP (A/L) index 39 ml/m2 - Name Value Normal Range MV E-wave Vmax 1 m/sec - MV deceleration time 185 msec - MV A-wave Vmax 0.5 m/sec - MV E:A ratio 2 ratio - P. vein S-wave Vmax 0.4 m/sec - P. vein D-wave Vmax 0.3 m/sec - P. vein S:D Vmax ratio 1.2 ratio - P. vein A-wave duration 127 msec - LV septal e' Vmax 0.11 m/sec - LV lateral e' Vmax 0.12 m/sec - LV E:e' septal ratio 8.5 ratio - LV E:e' lateral ratio 8 ratio - Name Value Normal Range AV Vmax 1.3 m/sec - AV VTI 28 cm - AV peak gradient 7 mmHg - AV mean gradient 4 mmHg - LVOT Vmax 0.8 m/sec - LVOT VTI 13 cm - LVOT peak gradient 2.6 mmHg - LVOT mean gradient 1 mmHg - Name Value Normal Range TR Vmax 1.4 m/sec - TR peak gradient 8 mmHg - RAP 3 mmHg - RVSP 11 mmHg - IVC diameter 2.1 cm - Name Value Normal Range PV Vmax 0.6 m/sec - PV peak gradient 1.4 mmHg -
[2018-10-02] MEDS: Cefepime 1 GM in Dextrose(*) 1 GM/50 ML BAG IV SCH ×2 (13:16→23:46)
[2018-10-02] MEDS: Nicotine PATCH 14 MG/24 HR* PATCH TRANSDERM SCH (13:17)
[2018-10-02] MEDS ORDERED: Buprenorp/Nalox 4-1 MG FILM 1 EACH SL FILM PRN (13:20)
[2018-10-02] MEDS ORDERED: hydrOXYzine HCL TAB* 25 MG PO PRN (13:22)
[2018-10-02] MEDS ORDERED: Nicotine Inhaler* 10 MG AMP INH PRN (13:29)
[2018-10-02] MEDS ORDERED: Mouth Piece, Nicotine* 1 EACH CARTRIDGE ONE (16:09)
[2018-10-02] MEDS: Atorvastatin* 40 MG TAB PO SCH (16:14)
[2018-10-02] MEDS: Nicotine Patch Removal NOTE FOLLOW UP SCH (21:00)
[2018-10-02] MEDS: Lactated Ringers 1000 ML Bag* 1,000 ML IV SCH (23:54)
[2018-10-03] MEDS: Vancomycin(*) 1,000 MG in NS 0.9% 250 ML* 250 ML IVPB SCH ×3 (00:23→16:14)
[2018-10-03] MEDS: Heparin VIAL(*) 5000 UNITS/ML VIAL (FIVE THOUSAND) SUBCUT SCH ×3 (05:25→20:23)
[2018-10-03 05:47] LABS: ABS Basophils 0.1 10^3/ul (0-0.2); ABS Eosinophils 0.3 10^3/ul (0-0.6); ABS Lymphocytes 2.1 10^3/ul (1.0-4.8); ABS Monocytes 0.5 10^3/ul (0-0.8); ABS Neutrophils 5.6 10^3/ul (1.5-7.7); ABS Nucleated RBC 0 10^3/ul; Eosinophil % 3.2 %; Hematocrit 36 % (33-41); Hemoglobin 12.2 g/dL (12.0-16.0); Lymphocyte % 24.3 %; Mean Corpuscular HGB Conc 34 g/dL (31-36); Mean Corpuscular Hemoglobin 32 pg (27-31); Mean Corpuscular Volume 95 fL (80-97); Mean Platelet Volume 8.4 fL (7.4-10.4); Nucleated Red Blood Cells % 0.1; Platelet Count 185 10^3/uL (150-450); Red Blood Count 3.82 10^6 /uL (3.70-4.87); Red Cell Distribution Width 14 % (10.5-15); White Blood Count 8.6 10^3/uL (3.5-10.8)
[2018-10-03 06:11] LABS: Calcium 8.6 mg/dL (8.6-10.3)
[2018-10-03 06:16] LABS: BUN/Creatinine Ratio 29.5 (8-20); EGFR African American 124.1 (>60); EGFR Non-African American 102.6 (>60)
[2018-10-03] MEDS ORDERED: Vancomycin Trough Check NOTE FOLLOW UP ONE (07:30)
[2018-10-03] MEDS: Potassium Chlor TAB* 20 MEQ TAB.ER PO SCH (09:22)
[2018-10-03] MEDS: Aspirin EC TAB* 81 MG TAB.EC PO SCH (09:23)
[2018-10-03] MEDS: Metoprolol Tartrate TAB* 25 MG PO SCH ×2 (09:23→20:23)
[2018-10-03] MEDS: Nicotine PATCH 14 MG/24 HR* PATCH TRANSDERM SCH (09:23)
[2018-10-03] MEDS: PROCHLORPERAZINE INJ 5 MG/ML 2 ML VIAL IV PRN (09:35)
[2018-10-03] MEDS: Azithromycin IV(*) 500 MG in NS 0.9% 250 ML* 250 ML IVPB SCH (10:19)
--- NOTE | 2018-10-03 10:28 | PN ---
Subjective Date of Service: 10/03/18 Interval History: HD # 3 on 10/03 53F PMH PSA (IVDU meth, cocaine, buprenorphine/OUD), CAD w/ hx of cardiac arrest 05/05, STEMI s/p BMS to RCA, HFrEF at that time, prolonged hospital stay at that time c/b withdrawal and bacteremia who ultimately left AMA and returned to homelessness, returns septic, with PNA RML and new heart murmur. Overnight, no acute events, VSS, + UOP and + BM Labs 10/03 reviewed Leukocytosis wholly resolved, blood cx continue to be negative This morning seen and she feels ready to be d/c. Social work arranged for her to be d/c to [place], I have discussed with her it is reasonable to wait for cultures but she declines and is adamant to go. She is feeling much better, her labs and vitals have improved and I can continue to follow her culture data to ensure no+ blood cx. Objective Active Medications: Acetaminophen (Tylenol Tab*) 650 mg PO Q6H PRN PRN Reason: pain/fever Last Admin: 10/02/18 04:52 Dose: 650 mg Aspirin (Aspirin Ec Tab*) 81 mg PO DAILY [facility] Last Admin: 10/03/18 09:23 Dose: 81 mg Atorvastatin Calcium (Lipitor*) 40 mg PO 1700 [facility] Last Admin: 10/02/18 16:14 Dose: 40 mg Buprenorphine/Naloxone (Suboxone 4 Mg-1 Mg Sl Film) 1 each SL FILM BID PRN PRN Reason: CRAVINGS Last Admin: 10/03/18 09:29 Dose: 1 each Heparin Sodium (Porcine) (Heparin Vial(*)) 5,000 units SUBCUT Q8HR [facility] Last Admin: 10/03/18 05:25 Dose: 5,000 units Hydroxyzine HCl (Atarax Tab*) 25 mg PO Q4H PRN PRN Reason: ANXIETY Lactated Ringer's (Lactated Ringers 1000 Ml Bag*) 1,000 mls @ 100 mls/hr IV PER RATE [facility] Last Admin: 10/02/18 23:54 Dose: 100 mls/hr Azithromycin 500 mg/ Sodium (Chloride) 250 mls @ 250 mls/hr IVPB Q24H [facility] Last Admin: 10/03/18 10:19 Dose: 250 mls/hr Cefepime HCl (Maxipime 1 Gm In Dextrose Duplex (*)) 1 gm in 50 mls @ 100 mls/ hr IV Q12H [facility] Last Admin: 10/02/18 23:46 Dose: 100 mls/hr Vancomycin HCl 1,000 mg/ (Sodium Chloride) 250 mls @ 166.667 mls/hr IVPB Q8H [facility] Last Admin: 10/03/18 07:50 Dose: Not Given Ibuprofen (Motrin Tab*) 600 mg PO Q6H PRN PRN Reason: PAIN Last Admin: 10/02/18 21:14 Dose: 600 mg Metoprolol Tartrate (Lopressor Tab*) 25 mg PO BID [facility] Last Admin: 10/03/18 09:23 Dose: 25 mg Nicotine (Nicotine Patch 14 Mg/24 Hr*) 1 patch TRANSDERM DAILY [facility] Last Admin: 10/03/18 09:23 Dose: 1 patch Nicotine (Nicotine Inhaler*) 10 mg INH Q2H PRN PRN Reason: CRAVING Last Admin: 10/02/18 16:14 Dose: 10 mg Pharmacy Consult (Vancomycin Per Pharmacy*) 1 note FOLLOW UP .VANC PER PHARMACY [facility] Pharmacy Profile Note (Nicotine Patch Removal Note*) 1 note FOLLOW UP 2100 [facility] Last Admin: 10/02/18 21:00 Dose: 1 note Potassium Chloride (Klor Con Er Tab*) 20 meq PO DAILY [facility] Last Admin: 10/03/18 09:22 Dose: 20 meq Prochlorperazine Edisylate (Compazine Inj*) 5 mg IV Q6H PRN PRN Reason: NAUSEA/VOMITING Last Admin: 10/03/18 09:35 Dose: 5 mg Vital Signs - 8 hr 10/03/18 10/03/18 03:34 07:29 Temperature 97.9 F 97.5 F Pulse Rate 65 63 Respiratory 16 20 Rate Blood Pressure 141/68 139/64 (mmHg) O2 Sat by Pulse 99 99 Oximetry Oxygen Devices in Use Now: None Appearance: Woman in NAD Ears/Nose/Mouth/Throat: - - Poor dentition Neck: NL Appearance and Movements; NL JVP Respiratory: Symmetrical Chest Expansion and Respiratory Effort, Clear to Auscultation, - - Mid crackles to RML Cardiovascular: NL Sounds; No Murmurs; No JVD, RRR Lymphatic: No Cervical Adenopathy Extremities: No Edema Skin: No Rash or Ulcers Neurological: Alert and Oriented x 3 Result Diagrams: 10/03/18 05:40 10/03/18 05:40 Microbiology and Other Data: Microbiology 10/01/18 08:29 Aerobic Blood Culture - Preliminary Blood Venous No Growth Day 1 Anaerobic Blood Culture - Preliminary No Growth Day 1 10/01/18 13:25 Legionella Urinary Antigen - Final Urine Negative Legionella Antigen Streptococcus pneumoniae Ag Screen - Final Negative S. pneumo Antigen 10/01/18 08:46 Influenza Types A,B Antigen - Final Nasal Specimen received for Influenza A/B Molecular testing Diagnostic Imaging: Echo: EF 50-55% trace MR, no TR, no /AI, no veg seen Assess/Plan/Problems-Billing Assessment: 53F PMH PSA (IVDU meth, cocaine, buprenorphine/OUD), CAD w/ hx of cardiac arrest 05/05, STEMI s/p BMS to RCA, HFrEF, prolonged hospital stay at that time c/b withdrawal and bacteremia who ultimately left AMA and returned to homelessness, returns septic, with PNA, resolving and plans to leave to day. - Patient Problems (1) Sepsis Current Visit: Yes Status: Acute Comment: - Leukocytosis/bands, tachycardia , BP stable, low grade fever on presentation, now resolved - Source likely PNA/possible endocarditis, endocaridtis less likely given neg echo and culture data - On broad spectrum while culture data pending. Woud d/c home on Doxy for 10 days (2) Pneumonia involving right lung Current Visit: Yes Status: Acute Code(s): J18.9 - PNEUMONIA, UNSPECIFIED ORGANISM SNOMED Code(s): 825230546 Comment: - RML PNA on CT Scan - Concern for aspiration vs CAP - Continue Cefipime and Vanco for now, added Azitrhyo 10/02, Day 09/25 of abx on - Urine antigens sent (3) Heart murmur, systolic Current Visit: Yes Status: Acute Code(s): R01.1 - CARDIAC MURMUR, UNSPECIFIED SNOMED Code(s): 70997321 Comment: - In setting of hx of arrest and STEMI in 05/05, as well as ongoing IVDU - TTE shows no new valvular path and improved EF - Await final results on blood cx, cardiology to hold on consulting for now, will call pt back if she has + blood cx (4) CAD (coronary artery disease) Current Visit: No Status: Acute Code(s): I25.10 - ATHSCL HEART DISEASE OF [place] CORONARY ARTERY W/O ANG PCTRS SNOMED Code(s): 84081426 Comment: - EKG with now e/o new STD, Trop 0.04, not rising, with no active CP - s/p BMS to RCA 05/05 - Continue aspirin, BB, statin, no longer on DAPT (5) Polysubstance abuse Current Visit: No Status: Acute Code(s): F19.10 - OTHER PSYCHOACTIVE SUBSTANCE ABUSE, UNCOMPLICATED SNOMED Code(s): 941254793 Comment: - Offer BID Buprenorphine 4-2, PRNS (atarax) for comfort, consider mario or clonidine if neeed, she does not want to be d/c on Bup as makes her sick - Social work consult, she is ambivelent about inpatient rehabilitation - Daughter supportive and in recovery. (6) DVT prophylaxis Current Visit: Yes Status: Acute Code(s): DAB8547 - SNOMED Code(s): 783487200 Comment: - [facility] (7) Full code status Current Visit: Yes Status: Acute Code(s): Z78.9 - OTHER SPECIFIED HEALTH STATUS SNOMED Code(s): 060568271 Status and Disposition: D/C to long term where she prefers to go, employment counselor if s/sx return to come back
[2018-10-03] MEDS: Cefepime 1 GM in Dextrose(*) 1 GM/50 ML BAG IV SCH ×2 (11:35→23:58)
[2018-10-03] MEDS: Atorvastatin* 40 MG TAB PO SCH (16:14)
[2018-10-03] MEDS: Nicotine Patch Removal NOTE FOLLOW UP SCH (21:00)
[2018-10-04] MEDS: Vancomycin(*) 1,000 MG in NS 0.9% 250 ML* 250 ML IVPB SCH ×2 (00:42→12:21)
[2018-10-04] MEDS: Heparin VIAL(*) 5000 UNITS/ML VIAL (FIVE THOUSAND) SUBCUT SCH ×2 (05:58→14:05)
[2018-10-04 07:21] LABS: ABS Basophils 0.1 10^3/ul (0-0.2); ABS Eosinophils 0.3 10^3/ul (0-0.6); ABS Monocytes 0.5 10^3/ul (0-0.8); ABS Neutrophils 3.6 10^3/ul (1.5-7.7); ABS Nucleated RBC 0 10^3/ul; Eosinophil % 3.9 %; Hematocrit 36 % (33-41); Hemoglobin 11.9 g/dL (12.0-16.0); Lymphocyte % 31.2 %; Mean Corpuscular HGB Conc 33 g/dL (31-36); Mean Corpuscular Hemoglobin 31 pg (27-31); Mean Corpuscular Volume 95 fL (80-97); Mean Platelet Volume 8.7 fL (7.4-10.4); Nucleated Red Blood Cells % 0; Platelet Count 189 10^3/uL (150-450); Red Blood Count 3.82 10^6 /uL (3.70-4.87); Red Cell Distribution Width 13 % (10.5-15); White Blood Count 6.5 10^3/uL (3.5-10.8)
[2018-10-04] MEDS ORDERED: Vancomycin Trough Check NOTE FOLLOW UP ONE (07:30)
[2018-10-04 07:31] LABS: Albumin 2.8 g/dL (3.2-5.2); Albumin/Globulin Ratio 0.8 (1-3); BUN/Creatinine Ratio 22.5 (8-20); Calcium 8.3 mg/dL (8.6-10.3); EGFR African American 104.2 (>60); EGFR Non-African American 86.1 (>60); Globulin 3.4 g/dL (2-4); Potassium 3.9 mmol/L (3.5-5.0); Total Bilirubin 0.2 mg/dL (0.2-1.0); Total Protein 6.2 g/dL (6.4-8.9)
--- NOTE | 2018-10-04 08:00 | PN ---
Subjective Date of Service: 10/04/18 Interval History: HD # 4 on 10/04 53F PMH PSA (IVDU meth, cocaine, buprenorphine/OUD), CAD w/ hx of cardiac arrest 05/05, STEMI s/p BMS to RCA, HFrEF at that time, prolonged hospital stay at that time c/b withdrawal and bacteremia who ultimately left AMA and returned to homelessness, returns septic, with PNA RML and new heart murmur. Overnight, no acute events, VSS, + UOP and + BM Labs 10/04 reviewed Leukocytosis wholly resolved, blood cx continue to be negative This morning seen and she feels ready to be d/c. Social work arranged for her to be d/c to [place]. Will call in meds downstairs Objective Active Medications: Acetaminophen (Tylenol Tab*) 650 mg PO Q6H PRN PRN Reason: pain/fever Last Admin: 10/02/18 04:52 Dose: 650 mg Aspirin (Aspirin Ec Tab*) 81 mg PO DAILY [facility] Last Admin: 10/03/18 09:23 Dose: 81 mg Atorvastatin Calcium (Lipitor*) 40 mg PO 1700 [facility] Last Admin: 10/03/18 16:14 Dose: 40 mg Buprenorphine/Naloxone (Suboxone 4 Mg-1 Mg Sl Film) 1 each SL FILM BID PRN PRN Reason: CRAVINGS Last Admin: 10/03/18 09:29 Dose: 1 each Heparin Sodium (Porcine) (Heparin Vial(*)) 5,000 units SUBCUT Q8HR [facility] Last Admin: 10/04/18 05:58 Dose: 5,000 units Hydroxyzine HCl (Atarax Tab*) 25 mg PO Q4H PRN PRN Reason: ANXIETY Azithromycin 500 mg/ Sodium (Chloride) 250 mls @ 250 mls/hr IVPB Q24H [facility] Last Admin: 10/03/18 10:19 Dose: 250 mls/hr Cefepime HCl (Maxipime 1 Gm In Dextrose Duplex (*)) 1 gm in 50 mls @ 100 mls/ hr IV Q12H [facility] Last Admin: 10/03/18 23:58 Dose: 100 mls/hr Vancomycin HCl 1,000 mg/ (Sodium Chloride) 250 mls @ 166.667 mls/hr IVPB Q8H [facility] Last Admin: 10/04/18 00:42 Dose: 166.667 mls/hr Ibuprofen (Motrin Tab*) 600 mg PO Q6H PRN PRN Reason: PAIN Last Admin: 10/02/18 21:14 Dose: 600 mg Metoprolol Tartrate (Lopressor Tab*) 25 mg PO BID [facility] Last Admin: 10/03/18 20:23 Dose: 25 mg Nicotine (Nicotine Patch 14 Mg/24 Hr*) 1 patch TRANSDERM DAILY [facility] Last Admin: 10/03/18 09:23 Dose: 1 patch Nicotine (Nicotine Inhaler*) 10 mg INH Q2H PRN PRN Reason: CRAVING Last Admin: 10/02/18 16:14 Dose: 10 mg Pharmacy Consult (Vancomycin Per Pharmacy*) 1 note FOLLOW UP .VANC PER PHARMACY [facility] Pharmacy Profile Note (Nicotine Patch Removal Note*) 1 note FOLLOW UP 2100 [facility] Last Admin: 10/03/18 21:00 Dose: 1 note Potassium Chloride (Klor Con Er Tab*) 20 meq PO DAILY [facility] Last Admin: 10/03/18 09:22 Dose: 20 meq Prochlorperazine Edisylate (Compazine Inj*) 5 mg IV Q6H PRN PRN Reason: NAUSEA/VOMITING Last Admin: 10/03/18 09:35 Dose: 5 mg Vital Signs - 8 hr 10/04/18 03:35 Temperature 97.6 F Pulse Rate 73 Respiratory 20 Rate Blood Pressure 130/55 (mmHg) O2 Sat by Pulse 99 Oximetry Oxygen Devices in Use Now: None Appearance: Pleasat woman in NAD Ears/Nose/Mouth/Throat: - - Poor dentition Respiratory: Symmetrical Chest Expansion and Respiratory Effort, - - Still scant crackles to R lung Abdominal: NL Sounds; No Tenderness; No Distention, No Hepatosplenomegaly Lymphatic: No Cervical Adenopathy Extremities: No Edema Skin: No Rash or Ulcers Neurological: Alert and Oriented x 3 Result Diagrams: 10/04/18 06:37 10/04/18 06:37 Microbiology and Other Data: Microbiology 10/01/18 08:29 Aerobic Blood Culture - Preliminary Blood Venous No Growth Day 1 Anaerobic Blood Culture - Preliminary No Growth Day 1 10/01/18 13:25 Legionella Urinary Antigen - Final Urine Negative Legionella Antigen Streptococcus pneumoniae Ag Screen - Final Negative S. pneumo Antigen 10/01/18 08:46 Influenza Types A,B Antigen - Final Nasal Specimen received for Influenza A/B Molecular testing Diagnostic Imaging: Echo: EF 50-55% trace MR, no TR, no /AI, no veg seen Assess/Plan/Problems-Billing Assessment: 53F PMH PSA (IVDU meth, cocaine, buprenorphine/OUD), CAD w/ hx of cardiac arrest 05/05, STEMI s/p BMS to RCA, HFrEF, prolonged hospital stay at that time c/b withdrawal and bacteremia who ultimately left AMA and returned to homelessness, returns septic, with PNA, resolving and plans to leave to day. - Patient Problems (1) Sepsis Current Visit: Yes Status: Acute Comment: - Leukocytosis/bands, tachycardia , BP stable, low grade fever on presentation, now resolved - Source likely PNA/possible endocarditis, endocaridtis less likely given neg echo and culture data - On broad spectrum while culture data pending. Woud d/c home on Doxy for 10 days (2) Pneumonia involving right lung Current Visit: Yes Status: Acute Code(s): J18.9 - PNEUMONIA, UNSPECIFIED ORGANISM SNOMED Code(s): 274388600 Comment: - RML PNA on CT Scan - Concern for aspiration vs CAP - Continue Cefipime and Vanco for now, added Azitrhyo 10/02, Day 4/10 of abx on - Urine antigens sent (3) Heart murmur, systolic Current Visit: Yes Status: Acute Code(s): R01.1 - CARDIAC MURMUR, UNSPECIFIED SNOMED Code(s): 90435874 Comment: - In setting of hx of arrest and STEMI in 05/05, as well as ongoing IVDU - TTE shows no new valvular path and improved EF - Await final results on blood cx, cardiology to hold on consulting for now, will call pt back if she has + blood cx (4) CAD (coronary artery disease) Current Visit: No Status: Acute Code(s): I25.10 - ATHSCL HEART DISEASE OF [place] CORONARY ARTERY W/O ANG PCTRS SNOMED Code(s): 73178484 Comment: - EKG with now e/o new STD, Trop 0.04, not rising, with no active CP - s/p BMS to RCA 05/05 - Continue aspirin, BB, statin, no longer on DAPT (5) Polysubstance abuse Current Visit: No Status: Acute Code(s): F19.10 - OTHER PSYCHOACTIVE SUBSTANCE ABUSE, UNCOMPLICATED SNOMED Code(s): 294427342 Comment: - Offer BID Buprenorphine 4-2, PRNS (atarax) for comfort, consider mario or clonidine if neeed, she does not want to be d/c on Bup as makes her sick - Social work consult, she is ambivelent about inpatient rehabilitation - Daughter supportive and in recovery. (6) DVT prophylaxis Current Visit: Yes Status: Acute Code(s): ZRT6193 - SNOMED Code(s): 732562447 Comment: - [facility] (7) Full code status Current Visit: Yes Status: Acute Code(s): Z78.9 - OTHER SPECIFIED HEALTH STATUS SNOMED Code(s): 976770903 Status and Disposition: [facility], student services counselor if s/sx return to come back
[2018-10-04 10:22] LABS: Vancomycin Trough 21.1 mcg/mL
[2018-10-04] MEDS ORDERED: DOXYcycline CAP(*) 100 MG PO ONE (11:43)
[2018-10-04] MEDS: Potassium Chlor TAB* 20 MEQ TAB.ER PO SCH (12:19)
[2018-10-04] MEDS: Aspirin EC TAB* 81 MG TAB.EC PO SCH (12:19)
[2018-10-04] MEDS: Metoprolol Tartrate TAB* 25 MG PO SCH (12:19)
[2018-10-04] MEDS: Azithromycin IV(*) 500 MG in NS 0.9% 250 ML* 250 ML IVPB SCH (12:20)
[2018-10-04] MEDS: Cefepime 1 GM in Dextrose(*) 1 GM/50 ML BAG IV SCH (12:20)
[2018-10-04] MEDS: Nicotine PATCH 14 MG/24 HR* PATCH TRANSDERM SCH (12:21)
[2018-10-04 12:54] VITALS: BP 145/82
--- NOTE | 2018-10-04 13:52 | DS ---
DATE OF ADMISSION: 10/01/2018. DATE OF DISCHARGE: 10/04/2018. PRIMARY CARE PROVIDER: Chas. DISPOSITION AT DISCHARGE: Stable. Discharging to the homeless [facility] where the patient resided prior to admission. PRIMARY DIAGNOSIS: Sepsis, now resolved secondary to right middle lobe pneumonia. SECONDARY DIAGNOSES: 1. Polysubstance use disorder with IV drug use and opiate use disorder. 2. Coronary artery disease with history of cardiac arrest. 3. STEMI, status post bare metal stent to RCA in late 2018. 4. Heart failure with reduced ejection fraction in 2018, now resolved. MEDICATIONS AT DISCHARGE: 1. Atorvastatin 40 mg p.o. at bedtime. 2. Metoprolol Succinate 100 mg p.o. daily. 3. Lisinopril 5 mg p.o. daily. 4. Doxycycline 100 mg p.o. b.i.d. for 7 days after discharge. 5. Aspirin 81 mg p.o. daily. 6. Nicotine patch one patch transdermally daily to remove at night. 7. Albuterol one puff inhaled q.4 hours daily. Medication changes on this admission: The patient was not taking any medications on admission and had a period of inability to get her cardiac meds, so all medications are renewed for her on discharge. HISTORY OF PRESENT ILLNESS: This is a 53-year-old female with the above past medical history who presented to the emergency room weak with coughing and chest pain on 10/01/2018 that had been going on for about a month. She also had shortness of breath and some nausea. She had ongoing substance use during this time and also for the past four weeks prior to admission had been suffering with homelessness. In the emergency room, she had an elevated leukocytosis, tachycardia to 120, right middle lobe infiltrate on chest x-ray, and met sepsis criteria thought to be from pneumonia. Furthermore, there was a question of a new heart murmur and briefly the idea of endocarditis was entertained, although subsequently data proved otherwise. She was admitted to the hospital for sepsis and pneumonia. HOSPITAL COURSE BY PROBLEM: 1. Sepsis: The patient was admitted with tachycardia, bandemia, leukocytosis, and a source of right middle lobe pneumonia. She was placed on IV antibiotics and bolus with 30 cc/kg sepsis fluid bolus with immediate improvement of her tachycardia and resolution of her leukocytosis by hospital day two. Sepsis wholly resolved with aggressive early treatment by hospital day two as well. Culture data throughout hospitalization included negative blood cultures, negative flu, negative urine cultures. Furthermore as above in HPI, the diagnosis of endocarditis was entertained as the patient had new soft heart murmur as well as history of known IV drug use. An echocardiogram was completed on hospital day two that showed no valvular pathology and actually had resolution of her previously reduced ejection fraction and blood cultures were negative for 72 hours with no evidence of bacteremia, thus suspicion for endocarditis is lower. 2. Pneumonia: This is presumed to be community-acquired pneumonia and also entertained the idea of aspiration. She was maintained of broad spectrum antibiotics during her hospitalization, although this was narrowed to community - acquired on discharge. She had no oxygen requirement during her hospitalization and had mild cough and congestion on the day of discharge. 3. History of CAD and heart failure with reduced ejection fraction as above: The patient did have a new echocardiogram that showed improved ejection fraction to 55 percent, no longer meeting criteria for heart failure. Unfortunately, the patient was unable to take her cardiac medications status post her STEMI in late 2018 secondary to homelessness and being unable to connect with a primary care provider. She was restarted on aspirin, statin, beta arpan, and Leo inhibitor. She had a bare metal stent and did complete one month of DAP therapy. 4. Polysubstance abuse: The patient met with Social Work. She is ambivalent about cessation, particularly of amphetamines and cocaine. She would like to continue to live in the [facility] and use recreationally these illicits. She does express some interest in stopping opiate use IV and has made an appointment with [facility] to continue to discuss Buprenorphine. She currently bought Buprenorphine off the street. She was offered 4 mg strips b.i.d. in hospital of Buprenorphine which she said she tolerated very well and plans to follow-up with [facility] to continue harm reduction approach to her ongoing polysubstance use. Inpatient rehabilitation was offered and the patient declined. 5. Hypertension: The patient was maintained on home Metoprolol and continued to be normotensive during this hospitalization. On the day of discharge, her disposition is stable. She has normal blood work and normal vitals, and would like to return to a [facility] where Social Work was able to secure her a room. Her labs on the day of discharge show a white blood cell count of 6.5, a normal H and H, normal platelets. Her BMP is wholly unremarkable. Last imaging done was a chest x-ray dated 10/01/2018 which showed right middle lobe infiltrate, a transthoracic echocardiogram on 2018 that showed no valvular pathology and preserved ejection fraction, and a chest x-ray done on 10/01/2018 that also showed a right middle lobe infiltrates. ITEMS TO FOLLOW-UP ON AFTER DISCHARGE: 1. CAD, status post BMS during STEMI in late 2018: We encouraged the patient to at least take aspirin, beta arpan, statin, and Leo inhibitor which she is willing to try to do. A month's worth of medications were called in with refills and the patient was able to obtain these medications on discharge. 2. Pneumonia: The patient does still have remnants of right middle lobe pneumonia on discharge. She is placed on Doxycycline for presumed community- acquired pneumonia to continue for a total of ten days of antibiotics with an additional seven days post discharge. Furthermore, she was prescribed an Albuterol inhaler to use as needed as she does a lot of walking all over town. 3. Polysubstance abuse: As stated above, the patient is ambivalent about methamphetamine and cocaine abuse, but would like help with opiate use disorder for specifically in the way of oral Buprenorphine which she was trialed on here in the hospital and did well. Consider following up with [facility] on a harm reduction status. TIME SPENT: Forty-five minutes were spent in the planning of this discharge with over half of that spent directly at the bedside of the patient providing direct patient care. The plan is reviewed with her family and the patient herself who were in agreement with the plan. They have no further questions. Please do not to hesitate to contact us if there are any questions about the care that this patient received during this hospitalization. [id number]/[facility] #: [id number] [facility]
== END 2018-10-04 14:37 | disposition home or self-care (01) | DRG 720 ==
LOC: ED 06:33 → MEDTELE 09:13
PROVIDERS: ADMIT Internal Medicine; ATTEND Internal Medicine
DX: A41.9 Sepsis, unspecified organism (principal); J18.1 Lobar pneumonia, unspecified organism; I50.20 Unspecified systolic (congestive) heart failure; I11.0 Hypertensive heart disease with heart failure; I25.10 Atherosclerotic heart disease of native coronary artery without angina pectoris; F14.10 Cocaine abuse, uncomplicated; F15.10 Other stimulant abuse, uncomplicated; E87.6 Hypokalemia; R01.1 Cardiac murmur, unspecified; Z59.0 Homelessness; Z91.14 Patient's other noncompliance with medication regimen; I25.2 Old myocardial infarction; Z95.5 Presence of coronary angioplasty implant and graft; Z82.49 Family history of ischemic heart disease and other diseases of the circulatory system
CPT/HCPCS: 36415; 71046; 71250; 80048; 80053; 80202; 80307; 81003; 81015; 83605; 83880; 84484; 84702; 85025; 86140; 87040; 87086; 87899; 93005; 93306; 99285; A9270-GY; J0456; J0692; J0780; J1644; J2543; J3370

== ENCOUNTER 2018-10-12 08:01 | Observation (INO) | payer OTHER ==
--- NOTE | 2018-10-12 08:21 | ED ---
GI/ HPI - HPI Summary HPI Summary: This patient is a 53 year old F brought in by ambulance to ED with a chief complaint of severe heartburn since last night. The CC is described as constant and non-radiating to the back. The patient was able to sleep well but was very tired. The patient rates the pain 10/10 in severity. Symptoms aggravated by swallowing anything, even my own spit. Symptoms alleviated by nothing. Patient reports some MOELLER, SOB, and nasal congestion. Patient denies N/V/ D, fever, jaw pain, melena, and cough. PMHx of GERD (a long time ago), 4 stents , PNA (recently). Patient reports she still has her gallbladder. - History of Current Complaint Time Seen by Provider: 10/12/18 08:03 Stated Complaint: CHEST PAIN PER EMS Hx Obtained From: Patient Onset/Duration: Started Days Ago - since last night, Still Present Timing: Constant Severity: Severe - 10/10 Current Severity: Severe - 10/10 Pain Intensity: 10 Associated Signs and Symptoms: Positive: Other: - denies jaw pain and melena. Negative: Nausea, Vomiting, Diarrhea, Fever, Cough Aggravating Factor(s): Liquids - swallowing anything, "even my own spit" Alleviating Factor(s): Nothing - Additional Pertinent History Primary Care Physician: [id number] - Allergy/Home Medications Allergies/Adverse Reactions: Allergies Allergy/AdvReac Type Severity Reaction Status Date / Time No Known Allergies Allergy Verified 10/12/18 08:09 PMH/Surg Hx/FS Hx/Imm Hx Endocrine/Hematology History: Denies: Hx Diabetes Cardiovascular History: Reports: Hx Cardiac Arrest, Hx Hypertension, Hx Myocardial Infarction - 2 Sensory History: Denies: Hx Contacts or Glasses, Hx Hearing Aid Opthamlomology History: Denies: Hx Contacts or Glasses Psychiatric History: Reports: Hx Anxiety, Hx Depression, Hx Substance Abuse - heroin Denies: Hx Attention Deficit Hyperactivity Disorder, Hx Eating Disorder, Hx Panic Disorder, Hx Post Traumatic Stress Disorder, Hx Inpatient Treatment, Hx Community Mental Health Tx, Hx Schizophrenia, Hx Bipolar Disorder, Hx Suicide Attempt, Hx of Violent Episodes Against Others - Surgical History Surgery Procedure, Year, and Place: [place] with stents x2. oopherectomy per pt unsure which side Infectious Disease History: No Infectious Disease History: Denies: Traveled Outside the [place] in Last 30 Days - Family History Known Family History: Negative: Cardiac Disease, Hypertension - Social History Alcohol Use: Daily Alcohol Amount: 2-3 24oz beer Substance Use Type: Reports: Cocaine, Other Substance Use Comment - Amount & Last Used: + for amphetamines, admits to injecting Suboxone that is not her own Smoking Status (MU): Heavy Every Day Tobacco Smoker Review of Systems Negative: Fever, Chills Negative: Erythema Positive: Other - nasal congestion; denies jaw pain. Negative: Sore Throat Negative: Chest Pain Positive: Shortness Of Breath. Negative: Cough Positive: Other - "severe heartburn"; denies melena. Negative: Vomiting, Diarrhea, Nausea Negative: dysuria, hematuria Negative: Myalgia, Edema Negative: Rash Neurological: Other - denies dizziness Positive: Headache All Other Systems Reviewed And Are Negative: Yes Physical Exam - Summary Physical Exam Summary: Constitutional: Well-developed, Well-nourished, Alert. (-) Distressed Skin: Warm, Dry HENT: Normocephalic; Atraumatic Eyes: Conjunctiva normal Neck: Musculoskeletal ROM normal neck. (-) JVD, (-) Stridor, (-) Tracheal deviation Cardio: Rhythm regular, rate normal, Heart sounds normal; Intact distal pulses; The pedal pulses are 2+ and symmetric. Radial pulses are 2+ and symmetric. (-) Murmur Pulmonary/Chest wall: Effort normal. (-) Respiratory distress, (-) Wheezes, (-) Rales Abd: Soft, reproducible epigastric tenderness, (-) Distension, (-) Guarding, (- ) Rebound Musculoskeletal: (-) Edema Lymph: (-) Cervical adenopathy Neuro: Alert, Oriented x3 Psych: Mood and affect Normal Triage Information Reviewed: Yes Vital Signs On Initial Exam: Initial Vitals Temp Pulse Resp BP Pulse Ox 99.4 F 75 18 136/59 98 10/12/18 08:04 10/12/18 08:04 10/12/18 08:04 10/12/18 08:04 10/12/18 08:04 Vital Signs Reviewed: Yes Diagnostics - Vital Signs Vital Signs Temp Pulse Resp BP Pulse Ox 10/12/18 08:04 99.4 F 75 18 136/59 98 - Laboratory Result Diagrams: 10/12/18 08:49 10/12/18 08:49 Lab Statement: Any lab studies that have been ordered have been reviewed, and results considered in the medical decision making process. - Radiology CXR Radiology Interpretation Completed By: Radiologist Summary of Radiographic Findings: PATCHY ATELECTASIS VERSUS CONSOLIDATION OF THE RIGHT LOWER LUNG MEDIALLY. RECOMMEND FOLLOW-UP UNTIL RESOLUTION TO EXCLUDE UNDERLYING PULMONARY PARENCHYMAL PATHOLOGY. Dr. Dietrich has reviewed this radiology report. - CT Neck CT CT Interpretation Completed By: Radiologist Summary of CT Findings: 1. ATHEROSCLEROSIS. 2. NO ACUTE CT PATHOLOGY OF THE NECK. Dr. Dietrich has reviewed this radiology report. CT chest CT Interpretation Completed By: Radiologist Summary of CT Findings: No evidence of pneumomediastinum or mediastinal masses is identified. Atelectasis in the lingula and right middle lobe are unchanged. No evidence of abnormal adenopathy is noted. Overall no changes noted since October 01, 2017. Dr. Dietrich has reviewed this radiology report. - EKG 0837 Cardiac Rate: NL - 64 BPM EKG Rhythm: Sinus Rhythm Re-Evaluation - Re-Evaluation First Eval Re-Evaluation Time: 10:53 Comment: Discussed results with the patient. The patient reports she is in a lot of pain again, "heartburn" pain when she swallows and epigastric pain. Second Eval Re-Evaluation Time: 14:45 Comment: Discussed CT results with the patient. Third Eval Re-Evaluation Time: 15:01 Comment: Patient reports she did not have any follow up visits. She doesn't know who her it infrastructure project manager is, she is no longer seeing Dr. Benito, and she listed [facility] as her PCP but hasn't been able to see them. GIGU Course/Dx - Course Assessment/Plan: This patient is a 53 year old F brought in by ambulance to ED with a chief complaint of severe heartburn since last night. The patient has some reproducible epigastric tenderness. Her sx could be related to gastritis or reflux but given her hx of CAD, we will work her up further. In the ED course , the patient was given a GI cocktail, Duoneb, Lorazepam, and Pantoprazole. After given the GI cocktail, the patient reports that she was relieved of her sx and wants something to eat and drink. CXR reveals PATCHY ATELECTASIS VERSUS CONSOLIDATION OF THE RIGHT LOWER LUNG MEDIALLY. RECOMMEND FOLLOW-UP UNTIL RESOLUTION TO EXCLUDE UNDERLYING PULMONARY PARENCHYMAL PATHOLOGY. EKG reveals NSR at [address] reveals 1. ATHEROSCLEROSIS. 2. NO ACUTE CT PATHOLOGY OF THE NECK. CT chest reveals no evidence of pneumomediastinum or mediastinal masses is identified. Atelectasis in the lingula and right middle lobe are unchanged. No evidence of abnormal adenopathy is noted. Overall no changes noted since October 01, 2017. Consulted Dr. Ann about the patient's case and he recommends asking cardiology for input on utility of hospitalization given recent stenting and cardiac catheterization. Consulted with Dr. Dunn at the [facility] to facilitate close follow up at the [facility]. They understand the patient is high risk and will discuss the patient's case with the estate manager. Consulted Dr. Todd at 1522 about the patient's case and she says to get 2 stress tests done this week. Given the patient's poor follow up and active pain , she recommends to admit the patient for a possible stress test tomorrow. Consulted Dr. Ann at 1602 and he accepts the patient for admission. Spoke with Starr Smith at 1608 at the addiction medicine service at the [facility] and they will corporate aircraft mechanic her suboxone and follow up with the patient in [facility]. The patient will be admitted with dx of CP unspecified. Patient understands and agrees with this plan. - Diagnoses Differential Diagnoses - Female: Other - chest pain unspecified Provider Diagnoses: Chest pain, unspecified - Physician Notifications Discussed Care Of Patient With: Baltazar Ann Time Discussed With Above Provider: 14:52 Instructed by Provider To: Other - Consulted Dr. Ann about the patient's case and he recommends asking cardiology for input on utility of hospitalization given recent stenting and cardiac catheterization. Consulted with Dr. Dunn at the [facility] to facilitate close follow up at the [facility]. They understand the patient is high risk and will discuss the patient's case with the estate manager. Consulted Dr. Todd at 1522 about the patient's case and she says to get 2 stress tests done this week. Given the patient's poor follow up and active pain, she recommends to admit the patient for a possible stress test tomorrow. Consulted Dr. Ann at 1602 and he accepts the patient for admission. Spoke with Starr Smith at 1608 at the addiction medicine service at the [facility] and they will corporate aircraft mechanic her suboxone and follow up with the patient in [facility]. Discharge - Sign-Out/Discharge Documenting (check all that apply): Patient Departure - admit Patient Received Moderate/Deep Sedation with Procedure: No - Discharge Plan Condition: Stable Disposition: ADMITTED TO [facility] Referrals: No Primary Care Phys,NOPCP [Primary Care Provider] - - Attestation Statements Document Initiated by Scribe: Yes Documenting Scribe: Sav Polanco Provider For Whom Scribe is Documenting (Include Credential): Rehan Dietrich MD Scribe Attestation: Sav Hahn, scribed for Rehan Dietrich MD on 10/12/18 at 1613. Status of Scribe Document: Ready
[2018-10-12] MEDS ORDERED: Al Hydrox/Mg Hydrox/Simet LIQ* 30 ML UDC PO ONE (08:25)
[2018-10-12] MEDS ORDERED: Lidocaine 2% VISCOUS* 15 ML UDC PO ONE ×2 (08:25→10:58)
[2018-10-12] MEDS ORDERED: Pantoprazole TAB * 40 MG TAB PO ONE (08:52)
[2018-10-12 08:57] LABS: ABS Basophils 0.1 10^3/ul (0-0.2); ABS Eosinophils 0.2 10^3/ul (0-0.6); ABS Lymphocytes 1.5 10^3/ul (1.0-4.8); ABS Monocytes 0.5 10^3/ul (0-0.8); ABS Neutrophils 3.8 10^3/ul (1.5-7.7); ABS Nucleated RBC 0 10^3/ul; Eosinophil % 3.8 %; Hematocrit 38 % (33-41); Hemoglobin 12.7 g/dL (12.0-16.0); Lymphocyte % 24.2 %; Mean Corpuscular HGB Conc 34 g/dL (31-36); Mean Corpuscular Hemoglobin 32 pg (27-31); Mean Corpuscular Volume 95 fL (80-97); Mean Platelet Volume 8.1 fL (7.4-10.4); Nucleated Red Blood Cells % 0.1; Platelet Count 283 10^3/uL (150-450); Red Blood Count 3.99 10^6 /uL (3.70-4.87); Red Cell Distribution Width 14 % (10.5-15); White Blood Count 6.1 10^3/uL (3.5-10.8)
[2018-10-12 09:18] LABS: Albumin 3.5 g/dL (3.2-5.2); Albumin/Globulin Ratio 0.9 (1-3); BUN/Creatinine Ratio 21.8 (8-20); Calcium 9.6 mg/dL (8.6-10.3); EGFR African American 82.4 (>60); EGFR Non-African American 68.1 (>60); Globulin 3.8 g/dL (2-4); Potassium 4.1 mmol/L (3.5-5.0); Total Bilirubin 0.4 mg/dL (0.2-1.0); Total Protein 7.3 g/dL (6.4-8.9)
[2018-10-12 09:19] LABS: Troponin I 0.03 ng/mL (<0.04)
[2018-10-12] MEDS ORDERED: Iohexol 300* (CONTRAST) 10 ML SDV IV ONE (11:34)
[2018-10-12] MEDS ORDERED: Albuterol/Ipratropium NEB.SOL* Albuterol 2.5 MG/Ipratropium 0.5 MG 3 ML INH ONE (11:41)
[2018-10-12] MEDS ORDERED: LORazepam INJ* 2 MG/ML 1 ML VIAL IV PUSH ONE (11:41)
[2018-10-12 12:23] LABS: Influenza A Molecular NEGATIVE (Negative); Influenza B Molecular NEGATIVE (Negative)
[2018-10-12] MEDS ORDERED: Sucralfate SUSP 1 GM/10 ml 10 ML UDC PO ONE (13:05)
[2018-10-12] MEDS ORDERED: Buprenorp/Nalox 8-2 MG SL TAB.SL PO ONE (14:48)
[2018-10-12] MEDS ORDERED: Acetaminophen TAB* 325 MG PO PRN (15:54)
[2018-10-12] MEDS ORDERED: Ondansetron INJ* 2 MG/ML VIAL IV PRN (15:54)
[2018-10-12] MEDS ORDERED: Albuterol HFA INHALER* 8 gm MDI INH PRN (15:57)
[2018-10-12] MEDS ORDERED: LORazepam TAB(*) 1 MG PO SCH (16:00)
[2018-10-12] MEDS ORDERED: Atorvastatin* 40 MG TAB PO SCH (18:00)
[2018-10-12 18:37] LABS: Troponin I 0.04 ng/mL (<0.04)
[2018-10-12 20:22] LABS: Activated Partial Thrombo Time 34.1 seconds (26.0-36.3); INR 0.94 (0.77-1.02)
[2018-10-12] MEDS: Pantoprazole TAB * 40 MG TAB PO SCH (20:34)
[2018-10-12] MEDS: Heparin VIAL(*) 5000 UNITS/ML VIAL (FIVE THOUSAND) SUBCUT SCH (20:34)
--- NOTE | 2018-10-12 20:34 | HP ---
HISTORY AND PHYSICAL: DATE OF ADMISSION: 10/12/18 PRIMARY CARE PROVIDER: None. ATTENDING PHYSICIAN WHILE IN THE HOSPITAL: Dr. Baltazar Ann* (report dictated by Frank Sterling NP). CHIEF COMPLAINT: Epigastric pain. HISTORY OF PRESENT ILLNESS: Mrs. Desai is a 53-year-old female patient with an extensive past medical history. She has a history of IV drug use, history of EtOH abuse, CAD, right pneumothorax secondary to IJ placement. History of CHF; however, the last EF was noted to be right around 50%. History of VT, STEMI during hospitalization in April of 2018, status post 3 bare-metal stents and recently here discharged about a week ago with pneumonia, who was discharged on doxycycline, who is coming into our ER today stating that over the last 24 hours, she has had progressive worsening burning epigastric discomfort that has been worse after she eats. She denies any nausea or vomiting. She says the pain is radiating up into her chest, again described as a burning pressure in the setting of doxycycline and chronic alcohol use. She denies having any worsening pain with exertion. The pain has been constant. She denies having any shortness of breath. Denies having any cough. She says that she had not had any fevers. From the respiratory standpoint, she says that she is feeling better. She finished her antibiotics. She denies having any orthopnea, no leg swelling, denies having any nocturnal dyspnea. She continues to complain of having that burning epigastric discomfort, worse when she eats. The patient came to the ED, was evaluated. There was concern, she had 2 negative troponins but given her extensive history and the fact that she has poor outpatient followup, we were asked to evaluate for admission due to the fact that she is having chest pain. PAST MEDICAL HISTORY: Significant for: 1. IV drug use. 2. EtOH abuse. 3. CAD. 4. Right pneumothorax. 5. History of CHF, but the last EF was 50% to 55%. 6. Pneumonia. 7. History of STEMI. 8. History of V-tach. 9. Cardiac arrest. 10. VFib. 11. Branhamella catarrhalis bacteremia. PAST SURGICAL HISTORY: 1. She has had heart catheterization and PCI. 2. Ovarian tube removal. HOME MEDICATIONS: According to list provided include: 1. Toprol XL 100 mg daily. 2. Lisinopril 5 mg daily. 3. Atorvastatin 40 mg daily. 4. Aspirin 81 mg daily. 5. Ventolin 1 puff inhaled every 4 hours. 6. Doxycycline 100 mg p.o. b.i.d. which she did finish. ALLERGIES TO MEDICATIONS: Include no known drug allergies. FAMILY HISTORY: Both her parents had VT. SOCIAL HISTORY: Surrogate decision maker is her daughter. She does smoke cigarettes daily. She does drink 2 cans of beer daily. She does again has a history of polysubstance abuse in the form of methamphetamines, IV drug use in the past. REVIEW OF SYSTEMS: There is no documented fever. She denied any significant weight change. There is no double vision. She denies having any ear discharge. There was no rhinorrhea. She denies having any sore throat. She denies any thyroid enlargement. She did admit to having epigastric chest pain. She denies any orthopnea. No nocturnal dyspnea. There was epigastric discomfort. There was no nausea, no vomiting, no dysuria, no frequency. There was no seizure. No loss of consciousness. No pruritus. No skin ulcerations. Review of 14 systems completed and all others negative. PHYSICAL EXAMINATION GENERAL: At this time, Mrs. Desai is a 53-year-old female patient. She is sitting in the ED stretcher. She does not appear to be in any acute distress. She appears to be well nourished and well developed. VITAL SIGNS: Blood pressure 100/63, pulse 75, respirations were 14, O2 sat 96% , temperature 99.4. HEENT: Head: Atraumatic and normocephalic. Eyes: EOMs are intact. Sclerae anicteric and not pale. Pupils were pinpoint, equal, reactive to light, however. No nystagmus. Sclerae anicteric and not pale. Throat: Oral mucosa appears to be dry. No oropharyngeal erythema. NECK: Supple. LUNGS: Clear to auscultation bilaterally. No wheezes, rales, or rhonchi. HEART: Heart sounds S1, S2. Regular rate and rhythm. No murmurs, rubs, or gallops. ABDOMEN: Soft, it was flat. There was tenderness in the epigastric area. EXTREMITIES: Pulses were 2+ throughout. She is moving all 4 extremities with 5 /5 strength. NEUROLOGIC: She is awake. She is drowsy. She did receive Ativan prior to my assessment IV for a CT scan. She will awake and she is alert. She is oriented x3. Her speech is clear. Tongue midline. Suspect Artist Supervisor were equal. She had no gross focal deficits. SKIN: Intact. DIAGNOSTIC STUDIES/LAB DATA: WBC of 6.1, RBC of 3.99, hemoglobin of 12.7, hematocrit of 38, platelet count of 283. D-dimer less than 200. Sodium 134, potassium 4.1, chloride 104, bicarb 25, BUN 19, creatinine 0.87, glucose of 105 , lactic 1, calcium 9.6. Total bili 0.4, AST 31, ALT 36, alk phos 54. Troponin 0.03, repeat troponin was 0.03. Albumin 3.5. Serology was negative for flu. She did have multiple imaging here in the ED starting out with chest x-ray which impression is, patchy atelectasis versus consolidation in the right lower lung medially, recommend followup until resolution to exclude underlying pulmonary parenchymal pathology. EKG obtained today showed normal sinus rhythm, rate of 64. She had no ST elevations or T wave inversion. Was reviewed with the previous EKG and appeared to be similar. She had a chest CT obtained today which show no evidence of pneumomediastinum or mediastinal mass identified. Atelectasis in the lingula and the right middle lobe are unchanged. No evidence of abnormal adenopathy is noted. Overall, no changes since 10/01/17 exam. She had a neck CT obtained today which revealed atherosclerosis. No acute CT pathology of the neck. She had an echo just done last week which showed EF of 50% to 55%. Old medical records reviewed. ASSESSMENT AND PLAN: Mrs. Desai is a 53-year-old female patient coming into the ED today with complaints of epigastric discomfort and burning in the setting of EtOH abuse in addition to doxycycline. However, there was concern due to fact she is having chest pain. She will be admitted under observation status for: 1. Chest pain. I suspect this is probably gastrointestinal related secondary to probably gastritis secondary to doxycycline and alcohol use; however, she has significant risk factors for acute coronary syndrome and she has well documented lost to follow up. I do think that at this point we will go ahead and get a stress test. I will cycle her troponins, check an EKG, place her on telemetry. She is on aspirin, statin, beta-arpan. We will continue and we will follow her closely. If the stress test is positive, certainly we will get Cardiology involved. She probably is going to need outpatient GI workup for endoscopy. I am going to start her on Carafate and PPI as I am suspicious that she may have gastritis. 2. History of IV drug use. [facility] will be evaluating her tomorrow. Starr Smith did contact me and said that she would be happy to fill Suboxone for her and to get her into the [facility] clinic. 3. Ethanol abuse. I did order the [facility] protocol. 4. Coronary artery disease. She is on aspirin, statin, beta-arpan therapy. EKG and troponins are stable. 5. History of congestive heart failure. Her ejection fraction is resolved. We will monitor this. 6. History of pneumonia. It appear to be resolving. I do not believe she has an active pneumonia at this point. If she spikes a fever, then I will have a low threshold to start her on antibiotics given her history and culturing her, but at this point, again it is too early to see the CT result, so I suspect that if things are stable, we will continue to follow this. 7. History of myocardial infarction. Again, continue aspirin, statin, and beta - arpan therapy. 8. DVT prophylaxis: I will place her on heparin subcu. She is high risk given the recent hospitalization and recent infection. 9. Code status: Full code. 10. Fluids, electrolytes, and nutrition: She can have a heart healthy diet. TIME SPENT: Time spent on the admission was 60 minutes, greater than half the time was spent [id number] with the patient obtaining my history and physical, other half time was spent going over the plan of care with the patient and implementing the plan of care. I discussed the plan of care with my attending Dr. Ann, and he is in agreement. FRANK STERLING NP [id number]/CPS #: [id number] KAIA
[2018-10-12] MEDS: Sucralfate TAB* 1 GM PO SCH (23:48)
[2018-10-13] MEDS: Heparin VIAL(*) 5000 UNITS/ML VIAL (FIVE THOUSAND) SUBCUT SCH ×2 (05:45→15:51)
[2018-10-13] MEDS: Nicotine PATCH 21 MG/24 HR* PATCH TRANSDERM SCH ×2 (05:45→15:51)
[2018-10-13 06:13] LABS: ABS Basophils 0 10^3/ul (0-0.2); ABS Eosinophils 0.2 10^3/ul (0-0.6); ABS Lymphocytes 1.5 10^3/ul (1.0-4.8); ABS Monocytes 0.3 10^3/ul (0-0.8); ABS Neutrophils 2.1 10^3/ul (1.5-7.7); ABS Nucleated RBC 0 10^3/ul; Eosinophil % 4.3 %; Hematocrit 40 % (33-41); Hemoglobin 13.1 g/dL (12.0-16.0); Lymphocyte % 36.7 %; Mean Corpuscular HGB Conc 33 g/dL (31-36); Mean Corpuscular Hemoglobin 32 pg (27-31); Mean Corpuscular Volume 96 fL (80-97); Mean Platelet Volume 8.4 fL (7.4-10.4); Nucleated Red Blood Cells % 0.1; Platelet Count 252 10^3/uL (150-450); Red Blood Count 4.13 10^6 /uL (3.70-4.87); Red Cell Distribution Width 14 % (10.5-15); White Blood Count 4.2 10^3/uL (3.5-10.8)
[2018-10-13 06:17] LABS: INR 0.92 (0.77-1.02)
[2018-10-13 06:32] LABS: Potassium 4.5 mmol/L (3.5-5.0)
[2018-10-13 06:38] LABS: BUN/Creatinine Ratio 23.2 (8-20); EGFR African American 88.2 (>60); EGFR Non-African American 72.9 (>60); HDL Cholesterol 58.9 mg/dL
[2018-10-13 06:58] LABS: Troponin I 0.04 ng/mL (<0.04)
[2018-10-13] MEDS ORDERED: Lidocaine 2% VISCOUS* 15 ML UDC PO ONE (08:38)
[2018-10-13] MEDS ORDERED: Al Hydrox/Mg Hydrox/Simet LIQ* 30 ML UDC PO ONE (08:38)
--- NOTE | 2018-10-13 08:50 | PN ---
Hospitalist Progress Note Date of Service: 10/13/18 Addiction Medicine/[facility] Consult Note: Subjective: Maira is a 53 yo female, admitted yesterday with concern for chest pain. She has a previous history of STEMI, s/p stent placement, but became lost to follow up. She endorses history of polysubstance use, including methamphetamines, cocaine, and heroin. She denies heroin use over the past 2 months, stating she has been trying to get off it and has been using street doses of Suboxone. She usually will get 12 mg films and use 1 in the morning and 1/2 to 1 additional film later on in the day. She does inject her Suboxone because the films make her gag and cause incredible nausea and vomiting. Currently, she is endorsing pain to the midchest that she calls "heartburn" and states that nothing she has received so far has helped. She denies feeling SOB, having fever/chills, or other concerns at this time. Objective: General: WD middle-aged female, sitting up in bed, in NAD HEENT: Head is atraumatic, normocephalic, pupils pinned but reactive to light. EOMI. Oral mucosa is moist. Cardiac: RRR, no murmurs appreciated Lungs: Clear to auscultation anteriorly Abdomen: soft, with epigastric tenderness, BS normoactive Neuro: Alert, oriented x 3. NASH, speech is clear. Assessment/Plan: 53 yo female, presented to the ED on 10/12/18 with concern for epigastric pain with multiple comorbidities, including opioid use disorder, alcohol use disorder , CAD with stent placement, CHF, and recently diagnosed CAP; she is appropriately admitted under OBV status for further evaluation of her epigastric and chest pain complaints. She is currently complaining of chest pain at this time that she locates to the epigastrum and states that it is "heartburn." She is also endorsing significant anxiety regarding her stress test and states she will not go without something for her anxiety. Plan of care was discussed with nursing and her attending provider today, NICOLE Black. I have placed orders for a one time dose of GI Cocktail (viscous lidocaine/Maalox) as well as PO lorazepam, as she reports previous success with Maalox. In regards to her opiate use disorder history, I will send a script for buprenorphine-naloxone tablets (given adverse reaction to films) - script already sent via [employer] EMR. Total dose will be 20 mg. We discussed the risks of injecting Suboxone, and she is advised to use the tablets sublingually as prescribed in order to prevent further risk for vascular complications. Plan for follow up includes follow up nurse visit next week (patient should call office for appointment time) and keeping scheduled appointment on 11/02/18 at 9: 00 am with me at [id number]. Please direct further questions to [facility] [employer], . Please forward/cc records to "[facility]", fax [phone]. Thank you!
[2018-10-13] MEDS ORDERED: LORazepam TAB(*) 1 MG PO ONE (08:51)
[2018-10-13] MEDS ORDERED: Metoprolol Succinate XL TAB* 100 MG PO SCH (09:00)
[2018-10-13] MEDS ORDERED: Lisinopril TAB* 5 MG PO SCH (09:00)
[2018-10-13] MEDS ORDERED: Thiamine TAB* 100 MG TAB PO SCH (09:00)
[2018-10-13] MEDS ORDERED: Aspirin 81 mg CHEW TAB* 81 MG TAB.CHEW PO SCH (09:00)
[2018-10-13] MEDS ORDERED: Multivitamins/Minerals TAB PO SCH (09:00)
[2018-10-13] MEDS ORDERED: Folic Acid TAB* 1 MG PO SCH (09:00)
[2018-10-13] MEDS: Sucralfate TAB* 1 GM PO SCH ×2 (09:14→14:42)
[2018-10-13 12:47] VITALS: BP 144/64
[2018-10-13] MEDS ORDERED: Regadenoson* 0.4 MG/5 ML SYRINGE ONE (13:12)
[2018-10-13] MEDS: Pantoprazole TAB * 40 MG TAB PO SCH (14:40)
[2018-10-13] MEDS ORDERED: Nicotine Patch Removal NOTE FOLLOW UP SCH (21:00)
--- NOTE | 2018-10-13 23:32 | DS ---
DISCHARGE SUMMARY: DATE OF ADMISSION: DATE OF DISCHARGE: 10/13/18 ADDENDUM: MY ATTENDING ON THIS CASE: Dr. Jimmy Hernandez.* (DICTATED BY JIM BEATTY NP) PHYSICAL EXAMINATION: The patient is alert, in no distress, appears much older than her stated age. Vital signs are blood pressure 144/64, heart rate 74, respiratory rate 16, O2 saturation 97% on room air with a temperature of 99.3. HEENT: Patient is atraumatic, normocephalic. PERRLA. Nonicteric sclerae. Oral mucosa is moist. She is edentulous. Tongue is midline. Neck is supple, nontender. No JVD noted. No carotid bruit auscultated. Cardiovascular: S1, S2 present. No murmurs, gallops, or rubs noted. Rate and rhythm are currently regular. She has regular sinus rhythm on telemetry. Lungs are clear at the apices, diminished at the bases. No appreciable wheezing, rhonchi, or rales noted. Abdomen is soft, nondistended. She does have some tenderness in the substernal region with palpation, otherwise no hepatomegaly noted. was deferred. Musculoskeletal: There is no clubbing, no cyanosis, no edema. She + 2 distal pulses palpable. Full range of motion, steady gait. Neurologic: Grossly intact. No focal deficits. Psychiatric: For the most part appropriate , although she does have a flat affect. DIAGNOSTIC STUDIES/LABORATORY DATA: WBCs 4.2, RBCs 4.13, hemoglobin 13.1, hematocrit 40, platelets 252. Sodium 136, potassium 4.5, chloride 102, CO2 of 23, BUN 19, creatinine 0.82, GFR 72.9, glucose 109, hemoglobin A1c 5.3, calcium 9.0, lactic acid 1.0, AST 31, ALT 36, alk phos 64. Troponin 0.03, 0.03, 0.04, and 0.04. Total protein 7.3, albumin 3.5, globulin 3.8, triglycerides 47, cholesterol 125, LDL 57, HDL 58.9. D-dimer is less than 200. INR is 0.94. Influenza A and B both negative. Nuclear portion of her stress test reads low risk based on imaging criteria with no definite fixed or reversible perfusion defects noted. CT of the chest dated 10/12/18 shows no evidence of mediastinal masses and this is an otherwise unremarkable study. CT of the neck also dated 10/12/18 shows atherosclerosis, but no acute pathology of the neck. Chest x-ray dated 10/12/18 also shows patchy atelectasis versus consolidation of the right lower lung medially, recommend followup until resolution to exclude underlying pulmonary parenchymal pathology. This when compared to her last chest x-ray is consistent with a resolving pneumonia. DISPOSITION: The patient will be discharged to home. Currently, the patient I believe [place]. Medications have been sent to the [facility]. Her new meds are the Carafate, Protonix, and vitamin B1. FOLLOWUPS: The patient was instructed to follow up with Starr Smith NP at the [facility] both for primary care and for initiation of Suboxone therapy. She should have a conservation with Starr and other staff at [facility] regarding additional cardiac followup. If the patient does cease with illicit drug use, it would be recommended that she see Cardiology for additional evaluation of medical management of her coronary artery disease. At this point, she is too high risk to place on antiplatelet therapies. The patient was discharged in stable condition. All questions were answered. The patient stated understanding of her discharge instructions and followups. TIME SPENT: Forty minutes coordinating discharge plan of care. JIM BEATTY NP [id number]/[facility] #: [id number] KAIA
--- NOTE | 2018-10-13 23:58 | DS ---
CONTINUATION ADDENDUM NOW INCLUDED ON THIS REPORT DISCHARGE SUMMARY: DATE OF ADMISSION: 10/12/18 DATE OF DISCHARGE: 10/13/18 PRIMARY CARE PROVIDER: Starr Smith at [facility]. MY ATTENDING FOR TODAY: Dr. Jimmy Hernandez.* (DICTATED BY JIM BEATTY NP) HOSPITAL COURSE: Please refer to admission H and P dated 10/12/18, but in short , Ms. Desai is a 53-year-old female patient with a history of polysubstance abuse, also having multiple stents secondary to coronary artery disease in the past. In April 2018, she did have a cardiac arrest with revascularization and a drug- eluding stent by Dr. Thorpe in April 2018. Prior to this event, she had 2 other bare metal stents at some point in her history prior. The patient was recently admitted also for pneumonia and was discharged mid September on doxycycline. The patient presented to the emergency department with a complaint of burning epigastric pain. Because of her recent cardiac arrest, [place] and stenting at the end of last year, it was felt that she would be too high risk and that she may be having another acute coronary syndrome. Her symptoms were very atypical, did not appear cardiac in nature, but again given her history, we felt it prudent to do a nuclear stress test on the patient, which she underwent today. Her nuclear stress test was read as low risk. The issue with this patient because she has been lost to followup secondary to her polysubstance abuse and homelessness, she has been noncompliant with aspirin and Plavix for the last 5 months. However, with these epigastric pains she is complaining of, it seems that her risk for gastritis, in particular alcoholic gastritis, and also could be a medication gastritis due to alcohol ingestion concomitant with doxycycline for her recent pneumonia, places her at high risk for bleeding. I do not think it would be warranted to trial the patient on aspirin and Plavix now because the patient has very low motivation for stopping heroin, cocaine, methamphetamines and alcohol. At this point, the patient was also seen by Starr Smith of the [facility] where she has placed the patient on Suboxone. It is our hope that Ms. Desai will follow up with the [facility] and discuss not just harm reduction but also cessation of her other illicit drug use. If the patient were to get clean and sober during this time, then I think it would be warranted for her to follow up with Cardiology and discuss ongoing medical management of her coronary artery disease and a possibility of dual antiplatelet therapy if needed. Also, of concern is the patient is on a beta- arpan. Again, there are contraindications to this medication with her current drug status. A potential may be Cardizem instead of the beta-arpan, but I think this is something that needs to be followed up with her primary care and again possibly Outpatient Cardiology. At this point, the patient was placed on Carafate and Protonix. The patient does describe all of her symptoms with postprandial pain, burning sensation and vomiting, again all consistent with alcoholic gastritis. Although patient still is having intermittent gastric pain, she is not willing to stay for any additional treatment. The patient does wish to be discharged to home. She agreed to follow up with the [facility]. Her medications were sent to the [facility]. The patient is medically optimized for discharge today. DISCHARGE DIAGNOSES: 1. Epigastric pain likely secondary to alcoholic and medication gastritis. 2. Coronary artery disease with history of PCI and cardiac arrest. 3. History of polysubstance abuse including heroin, amphetamines, methamphetamines, cocaine and likely other illicit substances. Now being placed on Suboxone. 4. Mild elevation in troponins, likely secondary to demand. DISCHARGE MEDICATIONS: 1. Multivitamin 1 tablet daily. 2. Nicotine patch 1 patch 21 mg recommended daily. 3. Protonix 40 mg 2 times a day. 4. Carafate 1 g p.o. before meals. 5. Vitamin B1 100 mg p.o. daily. 6. Ventolin inhaler 1 puff inhaled q.4 hours as needed. 7. Aspirin 81 mg daily. 8. Atorvastatin 40 mg in the evening. 9. Doxycycline 100 mg p.o. b.i.d. until completion. 10. Lisinopril 5 mg p.o. daily. 11. Metoprolol succinate XL 100 mg p.o. daily. REVIEW OF SYSTEMS: On day of discharge, the patient is complaining still of epigastric pain with meals, which has somewhat subsided now. Denies any shortness of breath. No abdominal pain, no nausea, no vomiting. No arthralgias or myalgias and no further constitutional complaints. CONTINUATION ADDENDUM: PHYSICAL EXAMINATION: The patient is alert, in no distress, appears much older than her stated age. Vital signs are blood pressure 144/64, heart rate 74, respiratory rate 16, O2 saturation 97% on room air with a temperature of 99.3. HEENT: Patient is atraumatic, normocephalic. PERRLA. Nonicteric sclerae. Oral mucosa is moist. She is edentulous. Tongue is midline. Neck is supple, nontender. No JVD noted. No carotid bruit auscultated. Cardiovascular: S1, S2 present. No murmurs, gallops, or rubs noted. Rate and rhythm are currently regular. She has regular sinus rhythm on telemetry. Lungs are clear at the apices, diminished at the bases. No appreciable wheezing, rhonchi, or rales noted. Abdomen is soft, nondistended. She does have some tenderness in the substernal region with palpation, otherwise no hepatomegaly noted. was deferred. Musculoskeletal: There is no clubbing, no cyanosis, no edema. She + 2 distal pulses palpable. Full range of motion, steady gait. Neurologic: Grossly intact. No focal deficits. Psychiatric: For the most part appropriate , although she does have a flat affect. DIAGNOSTIC STUDIES/LABORATORY DATA: WBCs 4.2, RBCs 4.13, hemoglobin 13.1, hematocrit 40, platelets 252. Sodium 136, potassium 4.5, chloride 102, CO2 of 23, BUN 19, creatinine 0.82, GFR 72.9, glucose 109, hemoglobin A1c 5.3, calcium 9.0, lactic acid 1.0, AST 31, ALT 36, alk phos 64. Troponin 0.03, 0.03, 0.04, and 0.04. Total protein 7.3, albumin 3.5, globulin 3.8, triglycerides 47, cholesterol 125, LDL 57, HDL 58.9. D-dimer is less than 200. INR is 0.94. Influenza A and B both negative. Nuclear portion of her stress test reads low risk based on imaging criteria with no definite fixed or reversible perfusion defects noted. CT of the chest dated 10/12/18 shows no evidence of mediastinal masses and this is an otherwise unremarkable study. CT of the neck also dated 10/12/18 shows atherosclerosis, but no acute pathology of the neck. Chest x-ray dated 10/12/18 also shows patchy atelectasis versus consolidation of the right lower lung medially, recommend followup until resolution to exclude underlying pulmonary parenchymal pathology. This when compared to her last chest x-ray is consistent with a resolving pneumonia. DISPOSITION: The patient will be discharged to home. Currently, the patient I believe resides [place] the rescue [place]. Medications have been sent to the [facility]. Her new meds are the Carafate, Protonix, and vitamin B1. FOLLOWUPS: The patient was instructed to follow up with Starr Smith NP at the [facility] both for primary care and for initiation of Suboxone therapy. She should have a conservation with Starr and other staff at [facility] regarding additional cardiac followup. If the patient does cease with illicit drug use, it would be recommended that she see Cardiology for additional evaluation of medical management of her coronary artery disease. At this point, she is too high risk to place on antiplatelet therapies. The patient was discharged in stable condition. All questions were answered. The patient stated understanding of her discharge instructions and followups. TIME SPENT: Forty minutes coordinating discharge plan of care. JIM BEATTY NP [id number]/[facility] #: [id number] [id number]/[facility] #: [id number] KAIA
[2018-10-17 09:02] LABS: Adulterants Comment Normal; Creatinine, Urine 96.3 mg/dL; Fentanyl, Ur Present ng/mL (Cutoff: 2); Hydrocodone, Ur Not Detected ng/mL (Cutoff: 25); Hydromorphone, Ur Not Detected ng/mL (Cutoff: 25); Morphine, Ur Not Detected ng/mL (Cutoff: 25); Norfentanyl, Ur Present ng/mL (Cutoff: 2); Norhydrocodone, Ur Not Detected ng/mL (Cutoff: 25); Noroxycodone, Ur Not Detected ng/mL (Cutoff: 25); Oxycodone, Ur Not Detected ng/mL (Cutoff: 25); Specific Gravity 1.014; Tramadol, Ur Not Detected ng/mL (Cutoff: 25); Ur Benzoylecgonine Confirm 2875 ng/mL (Cutoff: 50); Urine Barbiturates Negative; Urine Benzodiazepines Negative; Urine Cocaine Presumptive Positive ng/mL; Urine Cocaine Confirm (GC/MS) Negative ng/mL (Cutoff: 50); Urine Cocaine Interpretation Positive.; Urine Phencyclidine Negative ng/mL (Cutoff: 25); Urine Tetrahydrocannabinol Negative ng/mL (Cutoff: 50)
== END 2018-10-13 17:10 | disposition home or self-care (01) ==
LOC: ED 08:01 → MEDTELE 15:51
PROVIDERS: ADMIT Student in an Organized Health Care Education/Training Program; ATTEND Internal Medicine
DX: R10.13 Epigastric pain (principal); F19.10 Other psychoactive substance abuse, uncomplicated; F10.10 Alcohol abuse, uncomplicated; I25.10 Atherosclerotic heart disease of native coronary artery without angina pectoris; I25.2 Old myocardial infarction; J93.9 Pneumothorax, unspecified; J18.9 Pneumonia, unspecified organism; Z79.82 Long term (current) use of aspirin; F17.219 Nicotine dependence, cigarettes, with unspecified nicotine-induced disorders; K21.9 Gastro-esophageal reflux disease without esophagitis; Z95.5 Presence of coronary angioplasty implant and graft
CPT/HCPCS: 36415; 70491; 71045; 71260; 78452; 80048; 80053; 80061; 80307; 80353; 80364; 83036; 83605; 84484; 85025; 85379; 85610; 85730; 93005; 93017; 96374; 99283; A9270-GY; A9502; G0378; G0480; J1644; J2060; J2785; Q9967

== ENCOUNTER 2019-02-10 12:46 | Emergency (ER) | payer OTHER ==
[2019-02-10 12:57] VITALS: BP 109/71
[2019-02-10] MEDS ORDERED: Acetaminophen TAB* 325 MG PO ONE (13:08)
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
== END 2019-02-10 14:43 | disposition home or self-care (01) ==
LOC: UCEAST 12:46
DX: S16.1XXA Strain of muscle, fascia and tendon at neck level, initial encounter (principal); V49.50XA Passenger injured in collision with unspecified motor vehicles in traffic accident, initial encounter; Y92.410 Unspecified street and highway as the place of occurrence of the external cause; F17.210 Nicotine dependence, cigarettes, uncomplicated
CPT/HCPCS: 71046; 72125; 99213; A9270-GY; G0463

== ENCOUNTER 2019-05-15 13:47 | Emergency (ER) | payer OTHER ==
--- NOTE | 2019-05-15 16:03 | ED ---
Respiratory - HPI Summary HPI Summary: 54-year-old female presents with cough for the past couple days. She admits to occasional shortness breath and chest pain with the cough. She is a smoker. States she may have COPD. She denies any chest pain currently. No abdominal pain. No nausea vomiting. No fevers. No sore throat. Admits to some sinus congestion. - History of Current Complaint Chief Complaint: EDUpperRespComplaint Stated Complaint: COUGH PER EMS Time Seen by Provider: 05/15/19 15:31 Pain Intensity: 0 - Allergy/Home Medications Allergies/Adverse Reactions: Allergies Allergy/AdvReac Type Severity Reaction Status Date / Time No Known Allergies Allergy Verified 02/10/19 12:58 PMH/Surg Hx/FS Hx/Imm Hx Endocrine/Hematology History: Denies: Hx Diabetes Cardiovascular History: Reports: Hx Angina, Hx Cardiac Arrest, Hx Coronary Artery Disease, Hx Hypercholesterolemia, Hx Hypertension, Hx Myocardial Infarction Denies: Hx Pacemaker/ICD, Hx Valvular Heart Disease Respiratory History: Denies: Hx Asthma, Hx Chronic Obstructive Pulmonary Disease (COPD) History: Denies: Hx Chronic Renal Failure Sensory History: Denies: Hx Contacts or Glasses, Hx Hearing Aid Opthamlomology History: Denies: Hx Contacts or Glasses Psychiatric History: Reports: Hx Anxiety, Hx Depression, Hx Substance Abuse - heroin Denies: Hx Attention Deficit Hyperactivity Disorder, Hx Eating Disorder, Hx Panic Disorder, Hx Post Traumatic Stress Disorder, Hx Inpatient Treatment, Hx Community Mental Health Tx, Hx Schizophrenia, Hx Bipolar Disorder, Hx Suicide Attempt, Hx of Violent Episodes Against Others - Surgical History Surgery Procedure, Year, and Place: [place] with stents x3. oopherectomy per pt unsure which side Infectious Disease History: No Infectious Disease History: Denies: Hx Clostridium Difficile, Hx Hepatitis, Hx Human Immunodeficiency Virus (HIV), Hx of Known/Suspected MRSA, Hx Shingles, Hx Tuberculosis, History Other Infectious Disease, Traveled Outside the [place] in Last 30 Days - Family History Known Family History: Negative: Cardiac Disease, Hypertension - Social History Alcohol Use: None Alcohol Amount: 2-3 24oz beer Substance Use Type: Reports: None Substance Use Comment - Amount & Last Used: former user Smoking Status (MU): Heavy Every Day Tobacco Smoker Type: Cigarettes Review of Systems Negative: Fever Negative: Chest Pain Positive: Shortness Of Breath, Cough All Other Systems Reviewed And Are Negative: Yes Physical Exam Triage Information Reviewed: Yes Vital Signs On Initial Exam: Initial Vitals Temp Pulse Resp BP Pulse Ox 98.2 F 92 16 145/81 95 05/15/19 13:58 05/15/19 13:58 05/15/19 13:58 05/15/19 13:58 05/15/19 13:58 Vital Signs Reviewed: Yes Appearance: Positive: Well-Appearing Skin: Positive: Warm, Dry Head/Face: Positive: Normal Head/Face Inspection Eyes: Positive: Normal, Conjunctiva Clear ENT: Positive: Pharynx normal Respiratory/Lung Sounds: Positive: Clear to Auscultation, Breath Sounds Present Cardiovascular: Positive: Normal, RRR Abdomen Description: Positive: Nontender, Soft Bowel Sounds: Positive: Present Musculoskeletal: Positive: Normal Neurological: Positive: Normal Psychiatric: Positive: Normal Procedures - Sedation Patient Received Moderate/Deep Sedation with Procedure: No Diagnostics - Vital Signs Vital Signs Temp Pulse Resp BP Pulse Ox 05/15/19 13:58 98.2 F 92 16 145/81 95 - Laboratory Result Diagrams: 05/15/19 16:33 Lab Statement: Any lab studies that have been ordered have been reviewed, and results considered in the medical decision making process. - Radiology chest Radiology Interpretation Completed By: Radiologist Summary of Radiographic Findings: IMPRESSION: HYPERINFLATION, CONSISTENT WITH COPD. NO ACTIVE CARDIOPULMONARY DISEASE. - EKG No standard instances Cardiac Rate: NL EKG Rhythm: Sinus Rhythm EKG Comparison: No Significant Change Summary of EKG Findings: sinus rhythm Disposition - Course Course Of Treatment: 54-year-old female presents with cough for the past couple days. She admits to occasional shortness breath and chest pain with the cough. She is a smoker. States she may have COPD. She denies any chest pain currently. No abdominal pain. No nausea vomiting. No fevers. No sore throat. Admits to some sinus congestion. On exam lungs clear auscultation. wbc normal. Chest x-ray is read as COPD. ekg sinus rhythm. will prescribe prednisone and tessalon and inhaler. patient understand and agrees with plan. - Differential Dx - Cardiopulmonary Differential Diagnoses - Cardiopulmonary: Bronchitis, CHF, Lower Resp Infection - Diagnoses Provider Diagnoses: Bronchitis Discharge ED - Sign-Out/Discharge Documenting (check all that apply): Patient Departure - Discharge Plan Condition: Good Disposition: HOME Prescriptions: Benzonatate CAP* [Tessalon 100 MG CAP*] 100 mg PO TID #21 cap predniSONE TAB* [Deltasone TAB*] 50 mg PO DAILY #4 tab Patient Education Materials: Acute Bronchitis (ED) Referrals: No Primary Care Phys,NOPCP [Primary Care Provider] - Additional Instructions: Use Tessalon three times a day for cough Use inhaler one puff every 4 hours for cough as needed Take steroid once a day for 4 days Use saline in the nose Follow up with primary care physician in 5 days Return to ED if develop any new or worsening symptoms - Billing Disposition and Condition Condition: GOOD Disposition: Home
[2019-05-15] MEDS ORDERED: A lbuterol Hfa (PREPAK) 1 MDI - ED TAKE HOME DISPENSING ONLY INHH ONE (16:48)
[2019-05-15] MEDS ORDERED: predniSONE TAB* 20 MG PO ONE (16:49)
[2019-05-15] MEDS ORDERED: Benzonatate CAP* 100 MG PO ONE (16:49)
[2019-05-15 16:51] LABS: ABS Eosinophils 0.2 10^3/ul (0-0.6); ABS Monocytes 0.3 10^3/ul (0-0.8); ABS Neutrophils 1.6 10^3/ul (1.5-7.7); Eosinophil % 5.3 %; Hematocrit 40 % (35-47); Hemoglobin 13.7 g/dL (12.0-16.0); Lymphocyte % 47.8 %; Mean Corpuscular HGB Conc 34 g/dL (31-36); Mean Corpuscular Hemoglobin 31 pg (27-31); Mean Corpuscular Volume 93 fL (80-97); Mean Platelet Volume 8.7 fL (7.4-10.4); Nucleated Red Blood Cells % 0.2; Platelet Count 188 10^3/uL (150-450); Red Blood Count 4.34 10^6 /uL (3.70-4.87); Red Cell Distribution Width 13 % (10-15); White Blood Count 4.2 10^3/uL (3.5-10.8)
[2019-05-15 17:04] LABS: Troponin I 0.01 ng/mL (<0.04)
[2019-05-15 17:15] LABS: ALT 31 U/L (7-52); AST 30 U/L (13-39); Albumin 3.5 g/dL (3.2-5.2); Albumin/Globulin Ratio 0.9 (1-3); Alkaline Phosphatase 71 U/L (34-104); Anion Gap 6 mmol/L (2-11); BUN/Creatinine Ratio 22.9 (8-20); Blood Urea Nitrogen 16 mg/dL (6-24); C Reactive Protein < 1.00 mg/L (<8.01); CO2 Carbon Dioxide 28 mmol/L (22-32); Calcium 8.9 mg/dL (8.6-10.3); Chloride 105 mmol/L (101-111); EGFR African American 105.5 (>60); EGFR Non-African American 87.2 (>60); Globulin 3.7 g/dL (2-4); Glucose 138 mg/dL (70-100); Sodium 139 mmol/L (135-145); Total Protein 7.2 g/dL (6.4-8.9)
[2019-05-15 18:56] VITALS: BP 123/68
== END 2019-05-15 17:49 | disposition home or self-care (01) ==
LOC: ED 13:47
DX: J40 Bronchitis, not specified as acute or chronic (principal); I25.10 Atherosclerotic heart disease of native coronary artery without angina pectoris; E78.00 Pure hypercholesterolemia, unspecified; I10 Essential (primary) hypertension; I25.2 Old myocardial infarction; Z86.74 Personal history of sudden cardiac arrest; Z95.5 Presence of coronary angioplasty implant and graft; Z90.721 Acquired absence of ovaries, unilateral; F17.210 Nicotine dependence, cigarettes, uncomplicated
CPT/HCPCS: 36415; 71046; 80053; 83880; 84484; 85025; 86140; 93005; 99282